=== PATIENT | male | born 1950 | race Caucasian/White ===

== ENCOUNTER 2020-09-15 08:00 | Outpatient (RCR) | payer MEDICARE, SELFPAY ==
--- NOTE | 2020-09-15 13:16 | MHC.PT.DC ---
[facility] [place] Office [place] Office [place] [facility] [address] [phone] F: [phone] F: [phone] F: [phone] F: [phone] Physical Therapy Discharge Report Diagnosis: OA L ANKLE AND FOOT Date of Surgery: Date of Evaluation: 07/30/20 Date of Discharge: 09/15/20 Treatments to Date: 10 Cancellations to Date: 0 No Shows to Date: 0 Discharge Status: Improved Function Discharge Summary: HAS GOOD HEP, HAS MET MOST GOALS , L ANKLE DF~10, PF~60, INV/EV CONTINUES TO BE LIMITED, CONTINUES WITH LAT ANKLE PAIN WITH EVERSION, ED RE LIMITING REPS OF EVERSION, ED RE POSSIBLE RETURN TO ORTHOTICS, TRIAL SELF KT, PODIARTY/ANKLE SPECIALIST CONSULT Electronically signed by: CHRISS DAMNO PT Please sign and return to therapist. Thank you for your referral.
== END 2020-12-10 11:56 | disposition other institution (70) ==
LOC: HO.PT 08:00
PROVIDERS: Visit Provider Student in an Organized Health Care Education/Training Program
DX: M19.072 Primary osteoarthritis, left ankle and foot (principal)
CPT/HCPCS: 97110; 97530

== ENCOUNTER 2020-09-16 08:15 | Outpatient (REF) | payer MEDICARE, SELFPAY ==
[2020-09-16 09:34] LABS: Basophils Absolute Auto 0.1 X10*3/uL (0.0-0.2); Basophils Percent Auto 1.1 % (0-2); Eosinophils Absolute Auto 0.4 X10*3/uL (0.0-0.4); Eosinophils Percent Auto 6.9 % (0-4); Hematocrit 43.5 % (42-52); Imm Gran Abs Auto 0.02 X10*3/uL (0.00-0.03); Imm Gran Pct Auto 0.3 % (0.0-0.4); Lymphocytes Absolute Auto 1.5 X10*3/uL (1.2-4.9); Lymphocytes Percent Auto 23.6 % (20-40); MANUAL DIFF FLAG NO; Mean Corpuscular HGB Conc 34.5 g/dl (31.0-36.0); Mean Corpuscular Hemoglobin 31.3 pg (27.0-33.0); Mean Corpuscular Volume 90.6 fL (80-98); Mean Platelet Volume 10.3 fL (9.4-12.4); Monocytes Absolute Auto 0.4 X10*3/uL (0.1-1.2); Monocytes Percent Auto 6.8 % (2-11); Neutrophils Absolute Auto 3.8 X10*3/uL (2.0-8.3); Neutrophils Percent Auto 61.3 % (45-73); Platelet Count 195 X10*3/uL (160-400); Red Cell Distribution Width 12.1 % (11.0-16.0); Retic HGB Equivalent 34.2 pg (30.0-35.0); Reticulocyte Percent 1.4 % (0.5-1.8); Reticulocytes Absolute 0.068 X10*6/uL (0.026-0.095); White Blood Count 6.2 X10*3/uL (4.8-10.8)
[2020-09-16 10:07] LABS: Estimated Average Glucose 114 mg/dL; Hemoglobin A1c % 5.6 %
[2020-09-16 10:12] LABS: Alanine Aminotransferase 17 U/L (0-40); Albumin Level 4.1 g/dL (3.5-5.0); Alkaline Phosphatase 81 U/L (39-117); Anion Gap 13 (12-20); Aspartate Amino Transferase 18 U/L (5-37); Bilirubin Total 1.3 mg/dL (0.0-1.0); Blood Urea Nitrogen 15 mg/dL (9-16); Calcium 9.1 mg/dL (8.4-10.2); Carbon Dioxide 30 mmol/L (22-29); Chloride 108 mmol/L (96-108); Cholesterol 168 mg/dL; Estimated Glomerular Filt Rate > 60; Glucose Fasting 113 mg/dL (60-99); HDL Cholesterol 45 mg/dL; Iron 70 mcg/dL (45-160); LDL Cholesterol Calculated 109 mg/dl; Percent Iron Saturation 26 % (15-50); Potassium 5.4 mmol/l (3.3-5.1); Sodium 146 mmol/L (135-145); Total Iron Binding Capacity 269 mcg/dL (228-428); Total Protein 6.3 g/dL (6.5-8.0); Triglycerides 71 mg/dL; Unsaturated Iron Binding 199 ug/dL
[2020-09-16 10:21] LABS: Ferritin 102 ng/mL (20-250)
[2020-09-16 10:39] LABS: Folate 13.5 ng/mL (> or = 4.0); Vitamin B12 503 pg/mL (200-900)
== END 2020-09-16 08:16 | disposition home or self-care (01) ==
LOC: HO.LAB 08:15
PROVIDERS: PCP Internal Medicine; Visit Provider Internal Medicine
DX: D64.9 Anemia, unspecified (principal); E66.9 Obesity, unspecified; K21.9 Gastro-esophageal reflux disease without esophagitis; J45.909 Unspecified asthma, uncomplicated; I10 Essential (primary) hypertension; R73.02 Impaired glucose tolerance (oral); Z12.11 Encounter for screening for malignant neoplasm of colon; M25.572 Pain in left ankle and joints of left foot
CPT/HCPCS: 36415; 80053; 80061; 82607; 82728; 82746; 83036; 83540; 85025; 85045

== ENCOUNTER 2020-09-19 08:15 | Day surgery (SDC) | payer MEDICARE, SELFPAY ==
[2020-09-16 19:52] VITALS: BMI 30.1
--- NOTE | 2020-09-17 15:41 | HO.ANESPROP2 ---
Documented by User: Shasha Taylor 09/17/20 15:42 HPI - Anesthesia Eval Consult details Narrative: 70yo M for colonoscopy [facility] Past Medical History Medical History Arthritis Asthma BPH (benign prostatic hyperplasia) Elevated cholesterol Hypertension IBS (irritable bowel syndrome) Renal benign neoplasm Surgical History Surgical History History of colonoscopy History of incisional hernia repair History of prostatectomy S/P left knee arthroscopy Social History Social History Smoking Status: Never smoker Second Hand Smoke Exposure: No Use of substances other than those prescribed or required for medical reasons: No Advance Directives: No Advance Directives Information Provided: No Advance Directives on File: No Recently lost weight without trying: No Meds Allergies Allergy/AdvReac Type Severity Reaction Status Date / Time amoxicillin [AMOXICILLIN] Allergy Unknown HIVES Verified 09/19/20 08:41 pravastatin Allergy Unknown Muscle Pain Verified 09/19/20 08:41 simvastatin Allergy Unknown Muscle Pain Verified 09/19/20 08:41 hay fever Allergy Unknown Sneezing Uncoded 09/16/20 19:42 Home Medications Medication Instructions Recorded Confirmed Type albuterol sulfate [ProAir HFA] 2 puff INHALATION QID PRN 09/16/20 09/16/20 History losartan 100 mg PO DAILY 09/16/20 09/16/20 History Exam Exam Date and Time: September 17, 2020 1541 Height,Weight and Vital Signs: Height 5 ft 8 in Weight 89.811 kg Pertinent Lab Results Pertinent Lab Results: Laboratory Tests 09/16/20 09/16/20 08:28 08:28 WBC 6.2 Hgb 15.0 Hct 43.5 Plt Count 195 Sodium 146 H Potassium 5.4 H Chloride 108 Carbon Dioxide 30 H BUN 15 Creatinine 1.08 Assessment and Plan Assessment Anesthesia Assessment: Chart Reviewed Documented by User: Keyshawn Bermudez 09/19/20 09:02 [facility] Past Medical History Medical History Arthritis Asthma BPH (benign prostatic hyperplasia) Elevated cholesterol Hypertension IBS (irritable bowel syndrome) Renal benign neoplasm Surgical History Surgical History History of colonoscopy History of incisional hernia repair History of prostatectomy S/P left knee arthroscopy Social History Social History Smoking Status: Never smoker Second Hand Smoke Exposure: No Use of substances other than those prescribed or required for medical reasons: No Advance Directives: No Advance Directives Information Provided: No Advance Directives on File: No Recently lost weight without trying: No Meds Allergies Allergy/AdvReac Type Severity Reaction Status Date / Time amoxicillin [AMOXICILLIN] Allergy Unknown HIVES Verified 09/19/20 08:41 pravastatin Allergy Unknown Muscle Pain Verified 09/19/20 08:41 simvastatin Allergy Unknown Muscle Pain Verified 09/19/20 08:41 hay fever Allergy Unknown Sneezing Uncoded 09/16/20 19:42 Home Medications Medication Instructions Recorded Confirmed Type albuterol sulfate [ProAir HFA] 2 puff INHALATION QID PRN 09/16/20 09/16/20 History losartan 100 mg PO DAILY 09/16/20 09/16/20 History Exam Airway Mallampati Class: II TM Dist: >3cm Neck ROM: Full Partial: Upper Loose/Missing/Broken Teeth: No ([id number]) Lungs: cta b/l Assessment and Plan Assessment Anesthesia Assessment: Anesthesia Plan Discussed, PAT Visit and Chart Reviewed Final Anesthetic Review NPO: Yes ASA Class: II Final Preanesthetic Review: No Changes in Pt Med Stat, Meds/Allgs Chart Reviewed, Consent Obtained/Reviewed and Anes Risks/Benef Reviewed Patient Risk: Low Procedure Risk: Low Assessment/Block/Sedation in SS: Assess/Block/Sedation-SS Anesthetic Plan Anesthetic Plan: MAC: Disposition: Standard PACU
[2020-09-19 08:53] VITALS: BP 142/82; PULSE 90; RESP 18; TEMP 35.8; O2SAT 99
[2020-09-19] MEDS: Lactated Ringers 1,000 ML 100 ML IVCONT (09:03)
[2020-09-19 09:59] VITALS: BP 97/57; PULSE 81; RESP 14; TEMP 36.1; O2SAT 94
--- NOTE | 2020-09-19 10:06 | PM.OP ---
Brief Operative Note Date of procedure: 09/19/20 Pre-op diagnosis: Screening Post-op diagnosis: other (Diverticulosis,, Internal hemorrhoids) Procedure: Colonoscopy to the cecum Surgeon: Patricio Rivers Anesthesia: MAC Estimated blood loss (mL): 0 Pathology: none sent Condition: stable Disposition: PACU
[2020-09-19 10:14] VITALS: BP 102/61; PULSE 94; RESP 18; O2SAT 97
[2020-09-19 10:29] VITALS: BP 112/69; PULSE 91; RESP 20; O2SAT 98
--- NOTE | 2020-09-19 10:48 | HO.POSTANES ---
Post Anesthesia Evaluation Post Anesthesia Evaluation Vital Signs: Vital Signs Temp Pulse Resp BP Pulse Ox 09/19/20 10:29 97.0 F 91 20 112/69 98 09/19/20 10:14 94 18 102/61 97 09/19/20 09:59 97.0 F 81 14 97/57 L 94 09/19/20 08:53 96.5 F L 90 18 142/82 H 99 Anesthesia: Monitored Mental Status: Awake Pain Control: Satisfactory Nausea/Vomiting: None Hydration: Adequate Anesthesia-Related Issues: No Anes. Related Issues
--- NOTE | 2020-09-19 12:15 | OP_ITS ---
SURGEON: Patricio Rivers MD INDICATIONS: The patient presents for evaluation of colorectal cancer screening. Full consent has been obtained from him for this, including risks of bleeding and perforation. PREOPERATIVE DIAGNOSIS: Colorectal cancer screening. POSTOPERATIVE DIAGNOSIS: PROCEDURE PERFORMED: Colonoscopy to cecum. ESTIMATED BLOOD LOSS: COMPLICATIONS: ANESTHESIA: Monitored anesthesia care. ASSISTANTS: SPECIMENS: POSTOPERATIVE DIAGNOSES: Colorectal cancer screening, diverticulosis and internal hemorrhoids. DESCRIPTION OF PROCEDURE: The patient was placed in the left lateral decubitus position. The digital rectal exam revealed no abnormalities. The Olympus video pediatric colonoscope was entered into the rectum and advanced easily to the cecum. Once in the cecum, I did identify normal-appearing cecal pouch with appendiceal orifice and a normal-appearing ileocecal valve. The entire cecum and ileocecal valve appeared normal. There was transillumination of light deep in the right lower quadrant. The scope was slowly withdrawn assessing all mucosal surfaces carefully. Preparation was excellent. I did not visualize any sign of polyps, colitis, nor angiodysplasia. There was a mild amount of sigmoid diverticulosis. In the rectum, scope was retroflexed visualizing internal hemorrhoids, but no other pathology. The rectal mucosa appeared normal. The scope was straightened out and withdrawn from the patient. He tolerated the procedure well and was returned to the recovery area in stable condition. IMPRESSION: 1. Diverticulosis. 2. Internal hemorrhoids. PLAN: Given today's negative colonoscopy, as well as 2 previously negative screening colonoscopies, and no family history of colon cancer, and his age of 70, I do not think he will need any further screening colonoscopies. He will otherwise see me on a p.r.n. basis. He was advised to resume aspirin today. MD MARIA ESTHER Rico/ALECIA / [phone]
== END 2020-09-19 11:15 | disposition home or self-care (01) ==
PROVIDERS: PCP Internal Medicine; Visit Provider Internal Medicine
PROC: 0DJD8ZZ Inspection of Lower Intestinal Tract, Via Natural or Artificial Opening Endoscopic (ICD-10-PCS; CPT 45378; principal; 2020-09-19 09:30)
DX: Z12.11 Encounter for screening for malignant neoplasm of colon (principal); K57.30 Diverticulosis of large intestine without perforation or abscess without bleeding; K64.8 Other hemorrhoids; K58.0 Irritable bowel syndrome with diarrhea; K21.9 Gastro-esophageal reflux disease without esophagitis; I10 Essential (primary) hypertension; J45.909 Unspecified asthma, uncomplicated; Z79.82 Long term (current) use of aspirin; Z85.46 Personal history of malignant neoplasm of prostate; Z79.899 Other long term (current) drug therapy; Z88.1 Allergy status to other antibiotic agents; Z88.8 Allergy status to other drugs, medicaments and biological substances
CPT/HCPCS: G0121

== ENCOUNTER 2020-09-30 07:50 | Outpatient (REF) | payer MEDICARE, SELFPAY ==
[2020-09-30 09:13] LABS: Anion Gap 12 (12-20); Blood Urea Nitrogen 12 mg/dL (9-16); Calcium 9.3 mg/dL (8.4-10.2); Carbon Dioxide 28 mmol/L (22-29); Chloride 104 mmol/L (96-108); Estimated Glomerular Filt Rate > 60; Glucose Random 108 mg/dL (60-115); Potassium 4.6 mmol/l (3.3-5.1); Sodium 139 mmol/L (135-145)
== END 2020-09-30 07:51 | disposition home or self-care (01) ==
LOC: HO.LAB 07:50
PROVIDERS: Visit Provider Internal Medicine
DX: E87.5 Hyperkalemia (principal)
CPT/HCPCS: 80048

== ENCOUNTER → 2021-02-26 14:08 | Outpatient (BNVA) | payer MEDICARE, SELFPAY | PROVIDERS: Visit Provider Student in an Organized Health Care Education/Training Program | DX: M19.072 Primary osteoarthritis, left ankle and foot (principal) | CPT/HCPCS: 99212 ==

== ENCOUNTER 2021-08-20 08:22 | Outpatient (REF) | payer MEDICARE, SELFPAY ==
[2021-08-20 08:53] LABS: MANUAL DIFF FLAG NO
[2021-08-20 09:17] LABS: Basophils Absolute Auto 0.1 X10*3/uL (0.0-0.2); Basophils Percent Auto 1.3 % (0-2); Eosinophils Absolute Auto 0.2 X10*3/uL (0.0-0.4); Eosinophils Percent Auto 3.7 % (0-4); Hematocrit 40.9 % (42-52); Hemoglobin 13.9 g/dl (14.0-18.0); Imm Gran Abs Auto 0.02 X10*3/uL (0.00-0.03); Imm Gran Pct Auto 0.4 % (0.0-0.4); Lymphocytes Percent Auto 18.2 % (20-40); Mean Corpuscular Volume 91.3 fL (80-98); Mean Platelet Volume 9.9 fL (9.4-12.4); Monocytes Absolute Auto 0.5 X10*3/uL (0.1-1.2); Monocytes Percent Auto 9.1 % (2-11); Neutrophils Absolute Auto 3.6 X10*3/uL (2.0-8.3); Neutrophils Percent Auto 67.3 % (45-73); Platelet Count 170 X10*3/uL (160-400); Red Blood Count 4.48 X10*6/uL (4.60-5.80); Red Cell Distribution Width 12.6 % (11.0-16.0); White Blood Count 5.4 X10*3/uL (4.8-10.8)
[2021-08-20 10:02] LABS: Free T4 (Free Thyroxine) 0.88 ng/dL (0.71-1.85); Thyroid Stimulating Hormone 2.33 uIU/mL (0.32-4.0)
[2021-08-20 10:04] LABS: Alanine Aminotransferase 19 U/L (0-40); Albumin Level 3.9 g/dL (3.5-5.0); Alkaline Phosphatase 79 U/L (39-117); Anion Gap 9 (12-20); Aspartate Amino Transferase 17 U/L (5-37); Bilirubin Total 1.2 mg/dL (0.0-1.0); Blood Urea Nitrogen 19 mg/dL (9-16); Calcium 9.6 mg/dL (8.4-10.2); Carbon Dioxide 29 mmol/L (22-29); Chloride 107 mmol/L (96-108); Cholesterol 180 mg/dL; Estimated Glomerular Filt Rate > 60; Glucose Random 119 mg/dL (60-115); HDL Cholesterol 48 mg/dL; LDL Cholesterol Calculated 120 mg/dl; Potassium 4.8 mmol/L (3.3-5.1); Sodium 140 mmol/L (135-145); Triglycerides 64 mg/dL
[2021-08-20 10:35] LABS: Folate 16.3 ng/mL (> or = 4.0); Vitamin B12 413 pg/mL (200-900)
== END 2021-08-20 08:23 | disposition home or self-care (01) ==
LOC: HO.LAB 08:22
PROVIDERS: PCP Internal Medicine; Visit Provider Internal Medicine
DX: I10 Essential (primary) hypertension (principal); E78.00 Pure hypercholesterolemia, unspecified
CPT/HCPCS: 36415; 80053; 80061; 82607; 82746; 84439; 84443; 85025

== ENCOUNTER 2022-08-17 07:02 | Outpatient (REF) | payer MEDICARE, SELFPAY ==
[2022-08-17 07:23] LABS: MANUAL DIFF FLAG NO
[2022-08-17 07:37] LABS: Basophils Absolute Auto 0.1 X10*3/uL (0.0-0.2); Basophils Percent Auto 1.2 % (0-2); Eosinophils Absolute Auto 0.5 X10*3/uL (0.0-0.4); Eosinophils Percent Auto 8.9 % (0-4); Hematocrit 42.5 % (42.0-52.0); Hemoglobin 14.6 g/dl (14.0-18.0); Imm Gran Abs Auto 0.01 X10*3/uL (0.00-0.03); Imm Gran Pct Auto 0.2 % (0.0-0.4); Lymphocytes Absolute Auto 1.6 X10*3/uL (1.2-4.9); Lymphocytes Percent Auto 27.7 % (20-40); Mean Corpuscular HGB Conc 34.4 g/dl (31.0-36.0); Mean Corpuscular Hemoglobin 30.7 pg (27.0-33.0); Mean Corpuscular Volume 89.3 fL (80.0-98.0); Mean Platelet Volume 9.6 fL (9.4-12.4); Monocytes Absolute Auto 0.4 X10*3/uL (0.1-1.2); Monocytes Percent Auto 7.7 % (2-11); Neutrophils Absolute Auto 3.1 x10*3/uL (2.0-8.3); Neutrophils Percent Auto 54.3 % (45-73); Platelet Count 181 X10*3/uL (160-400); Red Blood Count 4.76 X10*6/uL (4.60-5.80); White Blood Count 5.7 X10*3/uL (4.8-10.8)
[2022-08-17 08:27] LABS: Alanine Aminotransferase 15 U/L (0-40); Alkaline Phosphatase 76 U/L (39-117); Anion Gap 14 (12-20); Aspartate Amino Transferase 16 U/L (5-37); Bilirubin Total 1.7 mg/dL (0.0-1.0); Blood Urea Nitrogen 18 mg/dL (9-16); Calcium 9.5 mg/dL (8.4-10.2); Carbon Dioxide 23 mmol/L (22-29); Chloride 107 mmol/L (96-108); Cholesterol 178 mg/dL; Estimated Glomerular Filt Rate > 60; Glucose Random 117 mg/dL (60-115); HDL Cholesterol 41 mg/dL; LDL Cholesterol Calculated 121 mg/dl; Potassium 4.2 mmol/L (3.3-5.1); Sodium 140 mmol/L (135-145); Total Protein 6.1 g/dL (6.5-8.0); Triglycerides 82 mg/dL
[2022-08-17 08:35] LABS: Free T4 (Free Thyroxine) 0.96 ng/dL (0.71-1.85); Prostate Specific Antigen < 0.05 ng/mL (<0.05-4.0); Thyroid Stimulating Hormone 3.05 uIU/mL (0.32-4.0)
[2022-08-17 08:50] LABS: Folate 18.3 ng/mL (> or = 4.0); Vitamin B12 358 pg/mL (200-900)
== END 2022-08-17 07:03 | disposition home or self-care (01) ==
LOC: HO.LAB 07:02
PROVIDERS: PCP Internal Medicine; Visit Provider Internal Medicine
DX: Z12.5 Encounter for screening for malignant neoplasm of prostate (principal); E78.00 Pure hypercholesterolemia, unspecified; I10 Essential (primary) hypertension; Z85.46 Personal history of malignant neoplasm of prostate
CPT/HCPCS: 36415; 80053; 80061; 82607; 82746; 84153; 84439; 84443; 85025

== ENCOUNTER 2023-05-19 07:34 | Outpatient (REF) | payer MEDICARE, SELFPAY | END 2023-05-19 07:35 | disposition home or self-care (01) | LOC: HO.LAB 07:34 | PROVIDERS: PCP Internal Medicine; Visit Provider Internal Medicine | DX: E78.00 Pure hypercholesterolemia, unspecified (principal); R73.02 Impaired glucose tolerance (oral); Z85.46 Personal history of malignant neoplasm of prostate; Z12.5 Encounter for screening for malignant neoplasm of prostate | CPT/HCPCS: 36415; 80053; 80061; 82607; 82746; 84153; 84439; 84443; 85025 ==

== ENCOUNTER 2023-06-06 10:20 | Outpatient (AMB) | payer MEDICARE, SELFPAY ==
--- NOTE | 2023-06-06 10:38 | A.OFFPC_ITS ---
Vital Signs 06/06/23 10:39 Height 5 ft 8 in Weight 194 lb BMI 29.5 BP 124/70 Blood Pressure Location Lt brachial Position Sitting Pulse 73 Pulse Source Pulse Oximeter Pulse Oximetry (%) 98 Oxygen Delivery Method Room Air Intake Visit Reasons: 3 month f/u Allergies amoxicillin [AMOXICILLIN] Allergy (Unknown, Verified 06/06/23 10:39) HIVES pravastatin Allergy (Unknown, Verified 06/06/23 10:39) Muscle Pain simvastatin Allergy (Unknown, Verified 06/06/23 10:39) Muscle Pain hay fever Allergy (Unknown, Uncoded 06/06/23 10:39) Sneezing Medication List - Last Reconciled 06/06/23 by Jose Wilson MD albuterol sulfate 90 mcg/actuation 2 puffs inhalation Q6H PRN aspirin (Adult Low Dose Aspirin) 81 mg PO DAILY fluticasone propion-salmeterol 250-50 mcg/dose (Advair Diskus) 1 inh inhalation BID multivitamin 1 tab PO DAILY naproxen sodium (Aleve) 220 mg PO BID PRN [REPLENEX 1 cap PO 2XD] rosuvastatin 5 mg PO Q OTHER DAY valsartan (Diovan) 160 mg PO DAILY 90 days Tobacco use date assessed: 02/28/23 Fall risk assessment: No Falls in past year Last assessed Fall Risk: 06/06/23 Dental Screening Dental Screen Date: 06/06/23 Did you have a dental visit in the last 12 months?: Yes Did you have a dental problem in the last 6 months where you did not have access to dental care?: No Was dental information given to patient?: Patient has dentist HPI 3 month f/u HPI Details 73-year-old overweight male with impaired glucose tolerance hypertension GERD elevated cholesterol history of prostate cancer asthma coming in for follow-up. Patient was last seen in February 2023 blood work was requested [facility] Medical History (Updated 06/06/23 @ 11:03 by Jose Wilson MD) Arthritis Asthma BPH (benign prostatic hyperplasia) Carpal tunnel syndrome Elevated cholesterol GERD (gastroesophageal reflux disease) History of prostate cancer Hypertension IBS (irritable bowel syndrome) Nasal polyp Obesity (BMI 30-39.9) Surgical History (Updated 02/28/23 @ 08:58 by Jose Wilson MD) History of colonoscopy History of incisional hernia repair History of prostatectomy Hx of arthroscopic knee surgery Hx of shoulder surgery Renal benign neoplasm S/P left knee arthroscopy Family History (Updated 02/28/23 @ 08:54 by Kaylyn West CMA) Father CAD (coronary artery disease) CVD (cardiovascular disease) Heart disease Mother Hypertension Brother CVD (cardiovascular disease) Myocardial infarction Social History (Updated 02/28/23 @ 09:09 by Jose Wilson MD) Housing: House Alcohol intake: current Alcohol intake frequency: holidays/special occasions only Patient Tobacco Use Status: Never used Tobacco e-Cigarette/Vaping Use: Never Used Second Hand Smoke Exposure: No service: Yes Current occupational status: retired Cognitive needs: No Hearing needs: Yes Vision needs: Yes Questionnaire PHQ-9 Over the last 2 weeks, how often have you been bothered by any of the following problems? 1. Little interest or pleasure in doing things: not at all 2. Feeling down, depressed, or hopeless: not at all 3. Trouble falling or staying asleep, or sleeping too much: not at all 4. Feeling tired or having little energy: not at all 5. Poor appetite or overeating: not at all 6. Feeling bad about yourself - or that you are a failure or have let yourself or your family down: not at all 7. Trouble concentrating on things, such as reading the newspaper or watching television: not at all 8. Moving or speaking so slowly that other people could have noticed. Or the opposite - being so fidgety or restless that you have been moving around a lot more than usual: not at all 9. Thoughts that you would be better off or of hurting yourself in some way: not at all Total score: 0 Depression Screening Interpretation: Negative Source: Developed by Drs. Patricio Andrews, Dana Young, Jaquan Brooks and colleagues, with an educational doris from [employer]. Thrive Questionnaire Date Thrive assessed: 02/28/23 AUDIT C Alcohol Use Questionnaire (AUDIT-C) 1. How often do you have a drink containing alcohol?: Monthly or less 2. How many drinks containing alcohol do you have on a typical day when you are drinking?: 1 or 2 3. How often do you have six or more drinks on one occasion?: Never Total Score: 1 ALEXIA-7 AMB Questionnaire ALEXIA-7 Date ALEXIA - 7 assessed: 02/28/23 Source: Developed by Drs. Patricio Andrews, Dana Young, Jaquan Brooks and colleagues, with an educational doris from [employer]. Physical exam (Primary Care) Vital Signs: Last Vital Signs Pulse 73 06/06/23 10:39 BP 124/70 06/06/23 10:39 Pulse Ox 98 06/06/23 10:39 Oxygen Delivery Method Room Air 06/06/23 10:39 BMI result Body Mass Index 29.5 Tobacco/Smoking Status: Tobacco use Status Tobacco use date assessed 02/28/23 06/06/23 10:40 Patient Tobacco Use Status Never used Tobacco 06/06/23 10:40 e-Cigarette/Vaping Use Never Used 06/06/23 10:40 PHQ-9: PHQ-9 Score PHQ-9: Total score 0 06/06/23 10:40 Depression Screening Interpretation: Negative Thrive Assessment: Date of Thrive Assessment Date Thrive assessed 02/28/23 06/06/23 10:40 Const General: alert; No acute distress Eyes Conjunctivae: conjunctivae normal Resp Auscultation: clear to auscultation bilaterally Cardio Rate: regular rate Rhythm: regular rhythm GI Inspection: Yes normal to inspection Extrem General: Yes normal to inspection and No edema Assessment and Plan Assessment & Plan (1) Asthma: Code(s): J45.909 - Unspecified asthma, uncomplicated Plan: Continue with a inhaler as needed (2) Overweight (BMI 25.0-29.9): Code(s): E66.3 - Overweight Plan: Diet and exercise (3) History of prostate cancer: Comment: Dr. Gallardo 2016 robotic prostatectomy Code(s): Z85.46 - Personal history of malignant neoplasm of prostate Plan: PSA done less than 0.1 and patient follows up with urology (4) Impaired glucose tolerance: Code(s): R73.02 - Impaired glucose tolerance (oral) Plan: Decrease the amount of carbohydrate intake, pasta, bread, rice and potatoes are all sugar and that is aside from all the sweet stuff, remember that fruits are good but they are Sweet also. (5) Hypertension: Code(s): I10 - Essential (primary) hypertension Qualifiers: Hypertension type: essential hypertension Qualified Code(s): I10 - Essential (primary) hypertension Plan: Continue with blood pressure medication. Decrease salt intake and exercise patient takes valsartan 160 mg once a day (6) GERD (gastroesophageal reflux disease): Code(s): K21.9 - Gastro-esophageal reflux disease without esophagitis Qualifiers: Esophagitis presence: without esophagitis Qualified Code(s): K21.9 - Gastro-esophageal reflux disease without esophagitis Plan: Avoid the foods that causes that usually spicy foods, tomato products, juices, coffee, soda and foods that your sensitive to. After eating do not lie down, allow 3-4 hours before in lie down. And keep the head of bed above 30 degrees to avoid the acid from going up. (7) Elevated cholesterol: Code(s): E78.00 - Pure hypercholesterolemia, unspecified Plan: Avoid fried foods, chicken skin, eggs, butter margarine, pastries and meat. Be it pork or beef they have a lot of cholesterol patient takes rosuvastatin 5 mg once a day Coding Level of Care Code Est Pt Level 4 (09623) Diagnoses Asthma J45.909 Overweight (BMI 25.0-29.9) E66.3 History of prostate cancer Z85.46 Impaired glucose tolerance R73.02 Hypertension I10 Hypertension type: essential hypertension GERD (gastroesophageal reflux disease) K21.9 Esophagitis presence: without esophagitis Elevated cholesterol E78.00
[2023-06-06 10:39] VITALS: BP 124/70; PULSE 73; O2SAT 98; BMI 29.5
== END 2023-06-06 11:11 | disposition home or self-care (01) ==
PROVIDERS: PCP Internal Medicine; Visit Provider Internal Medicine
DX: J45.909 Unspecified asthma, uncomplicated (principal); Z85.46 Personal history of malignant neoplasm of prostate; K21.9 Gastro-esophageal reflux disease without esophagitis; I10 Essential (primary) hypertension; R73.02 Impaired glucose tolerance (oral); E66.3 Overweight; E78.00 Pure hypercholesterolemia, unspecified
CPT/HCPCS: 99214

== ENCOUNTER 2023-12-07 09:15 | Outpatient (AMB) | payer MEDICARE, SELFPAY ==
[2023-12-07 09:21] VITALS: BP 150/82; PULSE 80; O2SAT 97; BMI 29.6
--- NOTE | 2023-12-07 09:21 | A.OFFPC_ITS ---
Vital Signs 12/07/23 09:21 Height 5 ft 8 in Weight 195 lb BMI 29.6 BP 150/82 H Blood Pressure Location Lt brachial Position Sitting Pulse 80 Pulse Source Pulse Oximeter Pulse Oximetry (%) 97 Oxygen Delivery Method Room Air Intake Visit Reasons: 6mth f/u Allergies amoxicillin [AMOXICILLIN] Allergy (Unknown, Verified 12/07/23 09:22) HIVES pravastatin Allergy (Unknown, Verified 12/07/23 09:22) Muscle Pain simvastatin Allergy (Unknown, Verified 12/07/23 09:22) Muscle Pain hay fever Allergy (Unknown, Uncoded 12/07/23 09:22) Sneezing Medication List - Last Reconciled 12/07/23 by Jose Wilson MD albuterol sulfate 90 mcg/actuation 2 puffs inhalation Q6H PRN aspirin (Adult Low Dose Aspirin) 81 mg PO DAILY fluticasone propion-salmeterol 250-50 mcg/dose (Advair Diskus) 1 inh inhalation BID multivitamin 1 tab PO DAILY naproxen sodium (Aleve) 220 mg PO BID PRN [REPLENEX 1 cap PO 2XD] rosuvastatin 5 mg PO Q OTHER DAY valsartan (Diovan) 160 mg PO DAILY 90 days Tobacco use date assessed: 12/07/23 Fall risk assessment: No Falls in past year Last assessed Fall Risk: 12/07/23 Dental Screening Dental Screen Date: 12/07/23 Did you have a dental visit in the last 12 months?: Yes Did you have a dental problem in the last 6 months where you did not have access to dental care?: No Was dental information given to patient?: Patient has dentist HPI 6m f/u HPI Details 73-year-old overweight male with asthma history of prostate cancer impaired glucose tolerance hypertension GERD hypercholesterolemia last seen in May 2023. Review of the notes had the flu shot and the COVID shot in August. will be seeing urology next week and having renal US and blood work [facility] Medical History (Updated 06/06/23 @ 11:03 by Jose Wilson MD) Nasal polyp Obesity (BMI 30-39.9) Carpal tunnel syndrome History of prostate cancer GERD (gastroesophageal reflux disease) Arthritis IBS (irritable bowel syndrome) BPH (benign prostatic hyperplasia) Asthma Elevated cholesterol Hypertension Surgical History (Updated 02/28/23 @ 08:58 by Jose Wilson MD) Hx of shoulder surgery Hx of arthroscopic knee surgery History of prostatectomy S/P left knee arthroscopy History of colonoscopy History of incisional hernia repair Renal benign neoplasm Family History (Updated 02/28/23 @ 08:54 by Kaylyn West [facility]) Father CAD (coronary artery disease) CVD (cardiovascular disease) Heart disease Mother Hypertension Brother CVD (cardiovascular disease) Myocardial infarction Social History (Updated 02/28/23 @ 09:09 by Jose Wilson MD) Housing: House Alcohol intake: current Alcohol intake frequency: holidays/special occasions only Patient Tobacco Use Status: Never used Tobacco e-Cigarette/Vaping Use: Never Used Second Hand Smoke Exposure: No service: Yes Current occupational status: retired Cognitive needs: No Hearing needs: Yes Vision needs: Yes Questionnaire PHQ-9 Over the last 2 weeks, how often have you been bothered by any of the following problems? 1. Little interest or pleasure in doing things: not at all 2. Feeling down, depressed, or hopeless: not at all 3. Trouble falling or staying asleep, or sleeping too much: not at all 4. Feeling tired or having little energy: not at all 5. Poor appetite or overeating: not at all 6. Feeling bad about yourself - or that you are a failure or have let yourself or your family down: not at all 7. Trouble concentrating on things, such as reading the newspaper or watching television: not at all 8. Moving or speaking so slowly that other people could have noticed. Or the opposite - being so fidgety or restless that you have been moving around a lot more than usual: not at all 9. Thoughts that you would be better off or of hurting yourself in some way: not at all Total score: 0 Depression Screening Interpretation: Negative Depression Screening Done: Yes Source: Developed by Drs. Patricio Andrews, Dana Young, Jaquan Brooks and colleagues, with an educational doris from [employer]. Thrive Questionnaire Date Thrive assessed: 12/07/23 I am a: Patient What is your living situation today?: I have a steady place to live Within the past 12 months, did the food you bought not last and you didn't have the money to get more?: Never true Within the past 12 months, did you worry whether your food would run out before you got money to buy more?: Never true Do you have trouble paying for medicines?: No Do you have trouble getting transportation to medical appointments?: No Do you have trouble paying your heating and electricity bill?: No Do you have trouble taking care of your child, family member or friend?: No Do you have trouble with day-to-day activities such as bathing, preparing meals, shopping, managing finances, etc.?: No Are you currently unemployed and looking for a job?: No Are you interested in more education?: No Currently or been in a relationship where the following occur: no concerns reported THRIVE Score: 0 AUDIT C Alcohol Use Questionnaire (AUDIT-C) 1. How often do you have a drink containing alcohol?: Monthly or less 2. How many drinks containing alcohol do you have on a typical day when you are drinking?: 1 or 2 3. How often do you have six or more drinks on one occasion?: Never Total Score: 1 ALEXIA-7 AMB Questionnaire ALEXIA-7 Date ALEXIA - 7 assessed: 12/07/23 Feeling nervous, anxious, or on edge: 0 = Not at all Not being able to stop or control worryin = Not at all Worrying too much about different things: 0 = Not at all Trouble relaxin = Not at all Being so restless that it is hard to sit still: 0 = Not at all Becoming easily annoyed or irritable: 0 = Not at all Feeling afraid as if something awful might happen: 0 = Not at all Total ALEXIA-7 score (0-4 normal; 5-9 mild; 10-14 moderate; 15-21 severe): 0 Source: Developed by Drs. Patricio Andrews, Dana Young, Jaquan Brooks and colleagues, with an educational doris from [employer]. Physical exam (Primary Care) Vital Signs: Last Vital Signs Pulse 80 12/07/23 09:21 BP 150/82 H 12/07/23 09:21 Pulse Ox 97 12/07/23 09:21 Oxygen Delivery Method Room Air 12/07/23 09:21 BMI result Body Mass Index 29.6 Tobacco/Smoking Status: Tobacco use Status Tobacco use date assessed 12/07/23 12/07/23 09:27 Patient Tobacco Use Status Never used Tobacco 12/07/23 09:27 e-Cigarette/Vaping Use Never Used 12/07/23 09:27 PHQ-9: PHQ-9 Score PHQ-9: Total score 0 12/07/23 09:27 Depression Screening Interpretation: Negative Thrive Assessment: Date of Thrive Assessment Date Thrive assessed 12/07/23 12/07/23 09:27 Currently or been in a relationship where the following occur: no concerns reported Const General: alert; No acute distress Eyes Conjunctivae: conjunctivae normal Resp Auscultation: clear to auscultation bilaterally Cardio Rate: regular rate Rhythm: regular rhythm GI Inspection: Yes normal to inspection Extrem General: Yes normal to inspection and No edema Assessment and Plan Assessment & Plan (1) GERD (gastroesophageal reflux disease): Code(s): K21.9 - Gastro-esophageal reflux disease without esophagitis Qualifiers: Esophagitis presence: without esophagitis Qualified Code(s): K21.9 - Gastro-esophageal reflux disease without esophagitis Plan: Avoid the foods that causes that usually spicy foods, tomato products, juices, coffee, soda and foods that your sensitive to. After eating do not lie down, allow 3-4 hours before in lie down. And keep the head of bed above 30 degrees to avoid the acid from going up. (2) Elevated cholesterol: Code(s): E78.00 - Pure hypercholesterolemia, unspecified Plan: Avoid fried foods, chicken skin, eggs, butter margarine, pastries and meat. Be it pork or beef they have a lot of cholesterol LDL goal of less than 130 and triglyceride of less than 150. Patient on rosuvastatin 5 mg every other day (3) Hypertension: Code(s): I10 - Essential (primary) hypertension Qualifiers: Hypertension type: essential hypertension Qualified Code(s): I10 - Essential (primary) hypertension Plan: Continue with blood pressure medication. Decrease salt intake and exercise on Diovan 160 mg once a day. BP high today , advised to monitor for now (4) Impaired glucose tolerance: Code(s): R73.02 - Impaired glucose tolerance (oral) Plan: Decrease the amount of carbohydrate intake, pasta, bread, rice and potatoes are all sugar and that is aside from all the sweet stuff, remember that fruits are good but they are Sweet also. (5) History of prostate cancer: Comment: Dr. Gallardo 2016 robotic prostatectomy Code(s): Z85.46 - Personal history of malignant neoplasm of prostate Plan: Continuing to monitor PSA. May 2023 last tested (6) Overweight (BMI 25.0-29.9): Code(s): E66.3 - Overweight Plan: Diet and exercise (7) Asthma: Code(s): J45.909 - Unspecified asthma, uncomplicated Plan: Continue with present inhalers has a controller Advair Orders: Orders Hemoglobin A1c 6 Months R73.02 - Impaired glucose tolerance (oral) Comprehensive Met. Panel 6 Months R73.02 - Impaired glucose tolerance (oral) Complete Blood Count Auto Diff 6 Months E78.00 - Pure hypercholesterolemia, unspecified Free T4 (Free Thyroxine) 6 Months E78.00 - Pure hypercholesterolemia, unspecified Thyroid Stimulating Hormone 6 Months E78.00 - Pure hypercholesterolemia, unsp ecified Vitamin B12 and Folate 6 Months E78.00 - Pure hypercholesterolemia, unspecified Prostate Specific Antigen Scr 6 Months Z85.46 - Personal history of malignant neoplasm of prostate Lipid Panel 6 Months E78.00 - Pure hypercholesterolemia, unspecified Coding Level of Care Code Est Pt Level 4 (99958) Diagnoses Gastroesophageal reflux disease without esophagitis K21.9 Esophagitis presence: without esophagitis Elevated cholesterol E78.00 Essential hypertension I10 Hypertension type: essential hypertension Impaired glucose tolerance R73.02 History of prostate cancer Z85.46 Overweight (BMI 25.0-29.9) E66.3 Asthma J45.909
== END 2023-12-07 10:38 | disposition home or self-care (01) ==
PROVIDERS: PCP Internal Medicine; Visit Provider Internal Medicine
DX: K21.9 Gastro-esophageal reflux disease without esophagitis (principal); E78.00 Pure hypercholesterolemia, unspecified; I10 Essential (primary) hypertension; R73.02 Impaired glucose tolerance (oral); Z85.46 Personal history of malignant neoplasm of prostate; E66.3 Overweight; J45.909 Unspecified asthma, uncomplicated
CPT/HCPCS: 99214

== ENCOUNTER 2024-05-24 06:01 | Outpatient (REF) | payer MEDICARE, SELFPAY ==
[2024-05-24 06:17] LABS: MANUAL DIFF FLAG NO
[2024-05-24 08:09] LABS: Basophils Absolute Auto 0.1 X10*3/uL (0.0-0.2); Basophils Percent Auto 1.1 % (0-2); Eosinophils Absolute Auto 0.5 X10*3/uL (0.0-0.4); Eosinophils Percent Auto 6.8 % (0-4); Hematocrit 42.8 % (42.0-52.0); Hemoglobin 14.4 g/dl (14.0-18.0); Imm Gran Abs Auto 0.02 X10*3/uL (0.00-0.03); Imm Gran Pct Auto 0.3 % (0.0-0.4); Lymphocytes Absolute Auto 1.8 X10*3/uL (1.2-4.9); Lymphocytes Percent Auto 27.9 % (20-40); Mean Corpuscular HGB Conc 33.6 g/dl (31.0-36.0); Mean Corpuscular Hemoglobin 30.6 pg (27.0-33.0); Mean Corpuscular Volume 91.1 fL (80.0-98.0); Mean Platelet Volume 10.1 fL (9.4-12.4); Monocytes Absolute Auto 0.5 X10*3/uL (0.1-1.2); Monocytes Percent Auto 7.3 % (2-11); Neutrophils Absolute Auto 3.7 x10*3/uL (2.0-8.3); Neutrophils Percent Auto 56.6 % (45-73); Platelet Count 205 X10*3/uL (160-400); Red Cell Distribution Width 12.3 % (11.0-16.0); White Blood Count 6.6 X10*3/uL (4.8-10.8)
[2024-05-24 08:18] LABS: Estimated Average Glucose 114 mg/dL; Hemoglobin A1C 148.6215 umol/L; Hemoglobin A1c % 5.6 % (<6.0)
[2024-05-24 08:43] LABS: Alanine Aminotransferase 18 U/L (0-40); Albumin Level 3.9 g/dL (3.5-5.0); Alkaline Phosphatase 84 U/L (39-117); Anion Gap 13 (12-20); Aspartate Amino Transferase 21 U/L (5-37); Bilirubin Total 1.2 mg/dL (0.0-1.0); Blood Urea Nitrogen 19 mg/dL (9-16); Calcium 9.6 mg/dL (8.4-10.2); Carbon Dioxide 23 mmol/L (22-29); Chloride 108 mmol/L (96-108); Cholesterol 171 mg/dL (<200); Estimated Glomerular Filt Rate > 60; Glucose Random 108 mg/dL (60-115); HDL Cholesterol 42 mg/dL (>40); LDL Cholesterol Calculated 108 mg/dL (<100); Potassium 4.5 mmol/L (3.3-5.1); Sodium 139 mmol/L (135-145); Total Protein 6.6 g/dL (6.5-8.0); Triglycerides 105 mg/dL (<150)
[2024-05-24 09:03] LABS: Free T4 (Free Thyroxine) 0.85 ng/dL (0.71-1.85); Thyroid Stimulating Hormone 2.97 uIU/mL (0.32-4.0)
[2024-05-24 09:14] LABS: Folate 11.3 ng/mL (> or = 4.0); Vitamin B12 498 pg/mL (200-900)
[2024-05-24 11:04] LABS: Prostate Specific Antigen Scr < 0.10 ng/mL (<0.05-4.0)
== END 2024-05-24 06:02 | disposition home or self-care (01) ==
LOC: HO.LAB 06:01
PROVIDERS: PCP Internal Medicine; Visit Provider Internal Medicine
DX: R73.02 Impaired glucose tolerance (oral) (principal); E78.00 Pure hypercholesterolemia, unspecified; Z85.46 Personal history of malignant neoplasm of prostate; Z12.5 Encounter for screening for malignant neoplasm of prostate
CPT/HCPCS: 36415; 80053; 80061; 82607; 82746; 83036; 84153; 84439; 84443; 85025

== ENCOUNTER 2024-06-04 12:06 | Outpatient (AMB) | payer MEDICARE, SELFPAY ==
[2024-06-04 11:28] VITALS: BP 130/72; PULSE 79; O2SAT 96; BMI 29.2
--- NOTE | 2024-06-04 11:28 | A.OFFPC_ITS ---
Vital Signs 06/04/24 11:28 Height 5 ft 8 in Weight 192 lb 0.6 oz BMI 29.2 BP 130/72 Blood Pressure Location Lt brachial Position Sitting Pulse 79 Pulse Source Pulse Oximeter Pulse Oximetry (%) 96 Oxygen Delivery Method Room Air Intake Visit Reasons: Annual exam Intake Note: Patient is here today for a physical. 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: No Allergies amoxicillin [AMOXICILLIN] Allergy (Unknown, Verified 06/04/24 11:28) HIVES pravastatin Allergy (Unknown, Verified 06/04/24 11:28) Muscle Pain simvastatin Allergy (Unknown, Verified 06/04/24 11:28) Muscle Pain hay fever Allergy (Unknown, Uncoded 06/04/24 11:28) Sneezing Medication List - Last Reconciled 06/04/24 by Jose Wilson MD albuterol sulfate 90 mcg/actuation 2 puffs inhalation Q6H PRN aspirin (Adult Low Dose Aspirin) 81 mg PO DAILY famotidine (Pepcid) 20 mg PO BEDTIME PRN fluticasone propion-salmeterol 250-50 mcg/dose (Advair Diskus) 1 inh inhalation BID multivitamin 1 tab PO DAILY naproxen sodium (Aleve) 220 mg PO BID PRN [REPLENEX 1 cap PO 2XD] rosuvastatin 5 mg PO Q OTHER DAY valsartan (Diovan) 160 mg PO DAILY 90 days Tobacco use date assessed: 12/07/23 Fall risk assessment: No Falls in past year Last assessed Fall Risk: 06/04/24 Dental Screening Dental Screen Date: 12/07/23 Did you have a dental visit in the last 12 months?: Yes Did you have a dental problem in the last 6 months where you did not have access to dental care?: No Was dental information given to patient?: Patient has dentist HPI Annual exam HPI Details 74-year-old overweight male with gerd, h ypercholesterolemia, HTN, IGT, history of prostate cancer and asthma coming in for an annual well visit. Last seen in November 2023. 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 [facility] Medical History (Updated 06/04/24 @ 12:54 by Jose Wilson MD) Nasal polyp Obesity (BMI 30-39.9) Carpal tunnel syndrome History of prostate cancer GERD (gastroesophageal reflux disease) Arthritis IBS (irritable bowel syndrome) BPH (benign prostatic hyperplasia) Asthma Elevated cholesterol Hypertension Surgical History (Updated 02/28/23 @ 08:58 by Jose Wilson MD) Hx of shoulder surgery Hx of arthroscopic knee surgery History of prostatectomy S/P left knee arthroscopy History of colonoscopy History of incisional hernia repair Renal benign neoplasm Family History (Updated 02/28/23 @ 08:54 by Kaylyn West [facility]) Father CAD (coronary artery disease) CVD (cardiovascular disease) Heart disease Mother Hypertension Brother CVD (cardiovascular disease) Myocardial infarction Social History (Updated 06/04/24 @ 12:44 by Jose Wilson MD) Housing: House Alcohol intake: current Alcohol intake frequency: holidays/special occasions only Comment: 2 x a week 2 beers Patient Tobacco Use Status: Never used Tobacco e-Cigarette/Vaping Use: Never Used Second Hand Smoke Exposure: No service: Yes Current occupational status: retired Cognitive needs: No Hearing needs: Yes Vision needs: Yes Questionnaire Thrive Questionnaire Date Thrive assessed: 12/07/23 AUDIT C Alcohol Use Questionnaire (AUDIT-C) 1. How often do you have a drink containing alcohol?: Monthly or less 2. How many drinks containing alcohol do you have on a typical day when you are drinking?: 1 or 2 3. How often do you have six or more drinks on one occasion?: Never Total Score: 1 ALEXIA-7 AMB Questionnaire ALEXIA-7 Date ALEXIA - 7 assessed: 12/07/23 Feeling nervous, anxious, or on edge: 0 = Not at all Not being able to stop or control worryin = Not at all Worrying too much about different things: 0 = Not at all Trouble relaxin = Not at all Being so restless that it is hard to sit still: 0 = Not at all Becoming easily annoyed or irritable: 0 = Not at all Feeling afraid as if something awful might happen: 0 = Not at all Total ALEXIA-7 score (0-4 normal; 5-9 mild; 10-14 moderate; 15-21 severe): 0 Source: Developed by Drs. Patricio Andrews, Dana Young, Jaquan Brooks and colleagues, with an educational doris from [employer]. Review of Systems Const Denies poor appetite and Denies weakness Eyes Denies no additional complaints ENT Reports Normal hearing present, Denies dizziness, Denies nasal congestion, Denies tinnitus and Denies sore throat Card Denies chest pain, Denies syncope, Denies rapid heart rate and Denies dyspnea Resp Denies cough and Denies dyspnea GI Denies change in stool character, Reports constipation, Denies diarrhea, Denies nausea and Denies vomiting Denies dysuria and Denies urinary frequency Neuro Reports Normal hearing present, Denies confusion, Denies dizziness, Denies sync ope and Denies weakness Psych Denies confusion Physical exam (Primary Care) Vital Signs: Last Vital Signs Pulse 79 06/04/24 11:28 BP 130/72 06/04/24 11:28 Pulse Ox 96 06/04/24 11:28 Oxygen Delivery Method Room Air 06/04/24 11:28 BMI result Body Mass Index 29.2 Tobacco/Smoking Status: Tobacco use Status Tobacco use date assessed 12/07/23 06/04/24 11:28 Patient Tobacco Use Status Never used Tobacco 06/04/24 11:28 e-Cigarette/Vaping Use Never Used 06/04/24 11:28 Thrive Assessment: Date of Thrive Assessment Date Thrive assessed 12/07/23 06/04/24 11:28 Const General: No confusion Orientation/consciousness: No confusion HENMT Head: Yes normocephalic Ears: external ears normal and TM's normal bilaterally Face and sinus: Yes normal facial exam Mouth: moist mucous membranes Throat: Yes tonsils normal Eyes Conjunctivae: conjunctivae normal Pupils: Equal, round and reactive pupils present and Pupil accommodation reflex normal Direct Ophthalmoscopy: normal light reflex Neck Neck: No lymphadenopathy Thyroid: Thyroid normal Chest Chest palpation & inspection: normal inspection of the chest Resp Effort & Inspection: normal respiratory effort and no audible wheezes Auscultation: clear to auscultation bilaterally, no crackles, no wheezes and lung sounds not diminished Cardio Rate: regular rate Rhythm: regular rhythm Peripheral pulses: radial pulses present and dorsalis pedis present GI Other: guaiac negative no prostate perirectal erytherma Palpation (GI): no masses Auscultation: normal bowel sounds and normoactive bowel sounds Male General Exam: Yes normal external exam Skin General skin exam: no rashes or lesions noted Rashes: no rashes Neuro General: No confusion Cranial nerves: Yes Equal, round and reactive pupils present and Yes Normal hearing present Cognition (Neuro): normal cognition Gait exam (Neuro): Normal gait present Motor exam (neuro): 5/5 motor strength present throughout Deep tendon reflexes (DTR's): Right brachioradialis reflex intensity grade: 2+, Left brachioradialis reflex intensity grade: 2+, Right patellar reflex intensity grade: 2+ and Left patellar reflex intensity grade: 2+ Extrem General: No edema Assessment and Plan Assessment & Plan (1) Annual physical exam: Code(s): Z00.00 - Encounter for general adult medical examination without abnormal findings Plan: Patient is advised to eat healthy, keep well hydrated, keep active and have adequate sleep. (2) Overweight (BMI 25.0-29.9): Code(s): E66.3 - Overweight Plan: Diet and exercise (3) Asthma: Code(s): J45.909 - Unspecified asthma, uncomplicated Plan: Continue with the albuterol inhaler and Advair (4) History of prostate cancer: Comment: Dr. Gallardo 2016 robotic prostatectomy Code(s): Z85.46 - Personal history of malignant neoplasm of prostate Plan: Continue to follow-up with urology on under surveillance (5) Impaired glucose tolerance: Code(s): R73.02 - Impaired glucose tolerance (oral) Plan: Decrease the amount of carbohydrate intake, pasta, bread, rice and potatoes are all sugar and that is aside from all the sweet stuff, remember that fruits are good but they are Sweet also. (6) Hypertension: Code(s): I10 - Essential (primary) hypertension Qualifiers: Hypertension type: essential hypertension Qualified Code(s): I10 - Essential (primary) hypertension Plan: Continue with blood pressure medication. Decrease salt intake and exercise p atient on valsartan 160 mg once a day (7) GERD (gastroesophageal reflux disease): Code(s): K21.9 - Gastro-esophageal reflux disease without esophagitis Qualifiers: Esophagitis presence: without esophagitis Qualified Code(s): K21.9 - Gastro-esophageal reflux disease without esophagitis Plan: Avoid the foods that causes that usually spicy foods, tomato products, juices, coffee, soda and foods that your sensitive to. After eating do not lie down, allow 3-4 hours before in lie down. And keep the head of bed above 30 degrees to avoid the acid from going up. (8) Elevated cholesterol: Code(s): E78.00 - Pure hypercholesterolemia, unspecified Plan: Avoid fried foods, chicken skin, eggs, butter margarine, pastries and meat. Be it pork or beef they have a lot of cholesterol on rosuvastatin 5 mg once a day. May 2024 last blood work (9) Bilateral hand pain: Code(s): M79.641 - Pain in right hand; M79.642 - Pain in left hand Orders: Orders XR hand LT 2V Today M79.641 - Pain in right hand, M79.642 - Pain in left hand XR hand RT 2V Today M79.641 - Pain in right hand, M79.642 - Pain in left hand Referrals Rheumatology Referral M79.641 - Pain in right hand, M79.642 - Pain in left hand Coding Level of Care Code Est Pt Prev Care >65y(41290) Diagnoses Annual physical exam Z00.00 Overweight (BMI 25.0-29.9) E66.3 Asthma J45.909 History of prostate cancer Z85.46 Impaired glucose tolerance R73.02 Essential hypertension I10 Hypertension type: essential hypertension Gastroesophageal reflux disease without esophagitis K21.9 Esophagitis presence: without esophagitis Elevated cholesterol E78.00 Bilateral hand pain M79.641; M79.642
== END 2024-06-04 13:03 | disposition home or self-care (01) ==
PROVIDERS: PCP Internal Medicine; Visit Provider Internal Medicine
DX: Z00.00 Encounter for general adult medical examination without abnormal findings (principal); E66.3 Overweight; J45.909 Unspecified asthma, uncomplicated; Z85.46 Personal history of malignant neoplasm of prostate; R73.02 Impaired glucose tolerance (oral); I10 Essential (primary) hypertension; K21.9 Gastro-esophageal reflux disease without esophagitis; E78.00 Pure hypercholesterolemia, unspecified; M79.641 Pain in right hand; M79.642 Pain in left hand
CPT/HCPCS: 99397

== ENCOUNTER 2024-06-05 08:40 | Outpatient (REF) | payer MEDICARE, SELFPAY ==
--- NOTE | ~2024-06-05 | XR_ITS ---
EXAMINATION: XR HAND, BILATERAL CLINICAL INFORMATION: Pain COMPARISON: None available. TECHNIQUE: 3 views of each hand FINDINGS: RIGHT: No acute visible fracture or dislocation. Moderate to severe multi joint arthritic changes greatest at the first carpometacarpal joint. Chondrocalcinosis along the triangle fibrocartilaginous complex. Joint space alignment otherwise maintained. Soft tissues are unremarkable. LEFT: No acute visible fracture or dislocation. Moderate to severe multi joint arthritic changes greatest at the radiocarpal joints. 2 mm ossific focus along the ulnar styloid process potentially representing sequela of remote trauma. Suggestion of chondrocalcinosis along the triangular fibrocartilaginous complex and dorsum of the carpal bones. Joint spaces and alignment otherwise maintained. Soft tissues are unremarkable. XR/XR hand LT min 3V IMPRESSION: 1. No acute visible fracture or dislocation. 2. Bilateral moderate to severe multi joint arthritic changes greatest at the first carpometacarpal joint. 3. Bilateral chondrocalcinosis along the triangular fibrocartilaginous complex. 4. Left-sided 2 mm ossific focus along the ulnar styloid process potentially representing sequela of remote trauma.
--- NOTE | ~2024-06-05 | XR_ITS ---
EXAMINATION: XR HAND, BILATERAL CLINICAL INFORMATION: Pain COMPARISON: None available. TECHNIQUE: 3 views of each hand FINDINGS: RIGHT: No acute visible fracture or dislocation. Moderate to severe multi joint arthritic changes greatest at the first carpometacarpal joint. Chondrocalcinosis along the triangle fibrocartilaginous complex. Joint space alignment otherwise maintained. Soft tissues are unremarkable. LEFT: No acute visible fracture or dislocation. Moderate to severe multi joint arthritic changes greatest at the radiocarpal joints. 2 mm ossific focus along the ulnar styloid process potentially representing sequela of remote trauma. Suggestion of chondrocalcinosis along the triangular fibrocartilaginous complex and dorsum of the carpal bones. Joint spaces and alignment otherwise maintained. Soft tissues are unremarkable. XR/XR hand RT min 3V IMPRESSION: 1. No acute visible fracture or dislocation. 2. Bilateral moderate to severe multi joint arthritic changes greatest at the first carpometacarpal joint. 3. Bilateral chondrocalcinosis along the triangular fibrocartilaginous complex. 4. Left-sided 2 mm ossific focus along the ulnar styloid process potentially representing sequela of remote trauma.
== END 2024-06-05 08:41 | disposition home or self-care (01) ==
LOC: HO.XRAY 08:40
PROVIDERS: PCP Internal Medicine; Visit Provider Internal Medicine
DX: M79.641 Pain in right hand (principal); M79.642 Pain in left hand
CPT/HCPCS: 73130

== ENCOUNTER 2024-09-19 08:23 | Outpatient (AMB) | payer MEDICARE, SELFPAY ==
--- NOTE | 2024-09-19 08:30 | MHC.OFFVIS ---
Vital Signs 09/19/24 08:36 Height 5 ft 8 in Weight 196 lb 6.91 oz BMI 29.9 BP 134/80 Blood Pressure Location Rt brachial Position Sitting Pulse 79 Pulse Source Pulse Oximeter Pulse Oximetry (%) 98 Oxygen Delivery Method Room Air Intake Visit Reasons: bl hand pain/CM Intake Note: Patient presents for bilateral hand pain. I been feeling pain on both hands for about two years. I take Aleve x2 a day and it helps. Allergies amoxicillin [AMOXICILLIN] Allergy (Unknown, Verified 09/19/24 08:34) HIVES pravastatin Allergy (Unknown, Verified 09/19/24 08:34) Muscle Pain simvastatin Allergy (Unknown, Verified 09/19/24 08:34) Muscle Pain hay fever Allergy (Unknown, Uncoded 06/04/24 11:28) Sneezing Medication List - Last Reconciled 09/19/24 by Melba Jimenez MD albuterol sulfate 90 mcg/actuation 2 puffs inhalation Q6H PRN aspirin (Adult Low Dose Aspirin) 81 mg PO DAILY famotidine (Pepcid) 20 mg PO BEDTIME PRN fluticasone propion-salmeterol 250-50 mcg/dose (Advair Diskus) 1 inh inhalation BID multivitamin 1 tab PO DAILY naproxen sodium (Aleve) 220 mg PO BID PRN [REPLENEX 1 cap PO 2XD] rosuvastatin 5 mg PO Q OTHER DAY valsartan (Diovan) 160 mg PO DAILY 90 days HPI Comments Details: This is a 74-year-old male with generalized osteoarthritis who presents for follow-up. States that recently has been having more achy joints especially in his hands, elbows. Morning stiffness lasting 30 minutes, improves with hot shower. He takes Aleve 220 mg Twice daily which provides reasonable relief. COUNT INCLUDES THE [facility] Medical History (Updated 09/19/24 @ 09:16 by Melba Jimenez MD) Nasal polyp Obesity (BMI 30-39.9) Carpal tunnel syndrome History of prostate cancer GERD (gastroesophageal reflux disease) Arthritis IBS (irritable bowel syndrome) BPH (benign prostatic hyperplasia) Asthma Elevated cholesterol Hypertension Surgical History Hx of shoulder surgery Hx of arthroscopic knee surgery History of prostatectomy S/P left knee arthroscopy History of colonoscopy History of incisional hernia repair Renal benign neoplasm Family History Father CAD (coronary artery disease) CVD (cardiovascular disease) Heart disease Mother Hypertension Brother CVD (cardiovascular disease) Myocardial infarction Social History Housing: House Alcohol intake: current Alcohol intake frequency: holidays/special occasions only Comment: 2 x a week 2 beers Patient Tobacco Use Status: Never used Tobacco e-Cigarette/Vaping Use: Never Used Second Hand Smoke Exposure: No service: Yes Current occupational status: retired Cognitive needs: No Hearing needs: Yes Vision needs: Yes Review of Systems Musc Reports arthralgias, Denies joint swelling and Reports stiffness Physical Exam Vital Signs: Last Vital Signs Pulse 79 09/19/24 08:36 BP 134/80 09/19/24 08:36 Pulse Ox 98 09/19/24 08:36 Oxygen Delivery Method Room Air 09/19/24 08:36 BMI result Body Mass Index 29.9 Const General: cooperative, healthy appearing and comfortable Nutritional Appearance: overweight Orientation/consciousness: patient oriented x3 Limitations: no limitations HEENT Head: Yes normocephalic and Yes atraumatic Mouth: moist mucous membranes Resp Effort & Inspection: normal respiratory effort and able to speak in complete sentences Skin General skin exam: no rashes or lesions noted Neuro General: patient oriented x3 Extrem Other: Osteoarthritic changes of both hands Left 1st CMC joint tenderness with positive grind test Mildly tender Heberden's and Suzy's nodes 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 No elbow pain with full flexion-extension bilaterally Normal range of motion of shoulders No knee pain with flexion-extension bilaterally No knee swelling or tenderness bilaterally Negative Spurling's test bilaterally Normal nailfold capillaroscopy Assessment & Plan Assessment & Plan (1) Osteoarthritis of hands, bilateral: Code(s): M19.041 - Primary osteoarthritis, right hand; M19.042 - Primary osteoarthritis, left hand Category: Medical Qualifiers: Osteoarthritis type: primary Qualified Code(s): M19.041 - Primary osteoarthritis, right hand; M19.042 - Primary osteoarthritis, left hand Plan: This is a 74-year-old male with generalized osteoarthritis who presents for bilateral hand pain. Picture consistent with bilateral hand osteoarthritis. Discussed the nature of the condition and its management. Discussed different treatment options. I will refer patient to occupational therapy. Discussed long-term side effects of NSAIDs. Advised patient to try to cut down on using a leave, substitute a leave with Tylenol Arthritis as much as possible Consider turmeric supplementation Consider a paraffin wax machine Consider applying Voltaren gel to the affected joints Follow-up as needed Plan I spent 30 minutes reviewing patient's chart, evaluating patient, placing orders, counseling patient and documenting in the chart Orders: Orders OT Evaluation and Treatment Today M19.041 - Primary osteoarthritis, right hand, M19.042 - Primary osteoarthritis, left hand Coding Level of Care Code New Pt Level 3 (14047) Diagnoses Primary osteoarthritis of both hands M19.041; M19.042 Osteoarthritis type: primary
[2024-09-19 08:36] VITALS: BP 134/80; PULSE 79; O2SAT 98; BMI 29.9
== END 2024-09-19 09:14 | disposition home or self-care (01) ==
LOC: HO.RHE 08:23
PROVIDERS: PCP Internal Medicine; Visit Provider Student in an Organized Health Care Education/Training Program
DX: M19.041 Primary osteoarthritis, right hand (principal); M19.042 Primary osteoarthritis, left hand
CPT/HCPCS: 99203

== ENCOUNTER → 2024-09-19 08:23 | Outpatient (BNVA) | payer MEDICARE, SELFPAY | PROVIDERS: PCP Internal Medicine; Visit Provider Student in an Organized Health Care Education/Training Program | DX: M19.041 Primary osteoarthritis, right hand (principal); M19.042 Primary osteoarthritis, left hand | CPT/HCPCS: 99202 ==

== ENCOUNTER 2024-11-05 07:39 | Outpatient (RCR) | payer MEDICARE, SELFPAY ==
--- NOTE | 2024-10-08 10:11 | MHC.OT.EP ---
[address] [phone] Occupational Therapy Plan of Care Patient Name: Mathew Riggs Date of Evaluation: 10/08/24 Diagnosis: B arthritis hands/ wrist Pain Location: B hands / wrists Pain Score: 3 Pain Scale Used: Numeric (0 - 10) Aggravating Factors: Alleviating Factors: Aleeve, Heat/ moist heat Assessment: Pt is 74 yr old L hand dominant male who reports pain in B hands and wrists which over the last year has progressed and he reports it is keeping him from doing things around the house. He saw the MD who diagnosed him w/ OA and referred him to therapy to be taught symptom management and increase the functional use of his B hands. 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 Frequency and Duration: The patient will be seen 1x a week for 4 weeks Short Term Goals: Group Home Goals: Pt will adhere to Joint protection techniques Pt will be compliant w/ use of hand splints during activity to decrease pain Pt will report 2/10 pain w/ activity Treatment Plan: Therapeutic Exercise Therapeutic Activity Home Exercise Program Splinting Neuro Re-ed Patient Education Desensitization/Sensory Re-ed Edema Control ADL Training Ultrasound NMES Iontophoresis Paraffin Fluidotherapy MHP Cold Packs Joint Mobilization Soft Tissue Mobilization Kinesiotaping Other (see comments) Electronically Signed By: Alicia Swift OTR/L Please Sign and return to therapist. Thank you once again for your referral.
== END 2024-11-05 08:33 | disposition home or self-care (01) ==
LOC: HO.OT 07:39
PROVIDERS: PCP Internal Medicine; Visit Provider Student in an Organized Health Care Education/Training Program
DX: M19.041 Primary osteoarthritis, right hand (principal); M19.042 Primary osteoarthritis, left hand
CPT/HCPCS: 97035; 97140; 97165

== ENCOUNTER 2024-11-30 06:11 | Outpatient (REF) | payer MEDICARE, SELFPAY ==
[2024-11-30 06:27] LABS: MANUAL DIFF FLAG NO
[2024-11-30 07:19] LABS: Estimated Average Glucose 114 mg/dL; Hemoglobin A1C 143.0922 umol/L; Hemoglobin A1c % 5.6 % (<6.0); Total Hemoglobin (HGBA1C) 3772.5913 umol/L
[2024-11-30 07:27] LABS: Basophils Absolute Auto 0.1 X10*3/uL (0.0-0.2); Basophils Percent Auto 0.9 % (0-2); Eosinophils Absolute Auto 0.4 X10*3/uL (0.0-0.4); Eosinophils Percent Auto 5.2 % (0-4); Hematocrit 42.4 % (42.0-52.0); Hemoglobin 14.4 g/dl (14.0-18.0); Imm Gran Abs Auto 0.03 X10*3/uL (0.00-0.03); Imm Gran Pct Auto 0.4 % (0.0-0.4); Lymphocytes Absolute Auto 2.2 X10*3/uL (1.2-4.9); Lymphocytes Percent Auto 29.5 % (20-40); Mean Corpuscular Hemoglobin 30.4 pg (27.0-33.0); Mean Corpuscular Volume 89.6 fL (80.0-98.0); Mean Platelet Volume 10.1 fL (9.4-12.4); Monocytes Absolute Auto 0.7 X10*3/uL (0.1-1.2); Monocytes Percent Auto 9.1 % (2-11); Neutrophils Absolute Auto 4.1 x10*3/uL (2.0-8.3); Neutrophils Percent Auto 54.9 % (45-73); Platelet Count 215 X10*3/uL (160-400); Red Blood Count 4.73 X10*6/uL (4.60-5.80); Red Cell Distribution Width 12.5 % (11.0-16.0); White Blood Count 7.5 X10*3/uL (4.8-10.8)
[2024-11-30 07:53] LABS: Alanine Aminotransferase 22 U/L (0-40); Albumin Level 3.9 g/dL (3.5-5.0); Alkaline Phosphatase 80 U/L (39-117); Anion Gap 10 (12-20); Aspartate Amino Transferase 26 U/L (5-37); Bilirubin Total 1.2 mg/dL (0.0-1.0); Blood Urea Nitrogen 24 mg/dL (9-16); Calcium 9.5 mg/dL (8.4-10.2); Carbon Dioxide 25 mmol/L (22-29); Chloride 108 mmol/L (96-108); Cholesterol 167 mg/dL (<200); Estimated Glomerular Filt Rate > 60; Glucose Random 102 mg/dL (60-115); HDL Cholesterol 45 mg/dL (>40); LDL Cholesterol Calculated 110 mg/dL (<100); Potassium 4.4 mmol/L (3.3-5.1); Sodium 139 mmol/L (135-145); Total Protein 6.8 g/dL (6.5-8.0); Triglycerides 64 mg/dL (<150)
[2024-11-30 08:11] LABS: PSA,Total (Free>4and<10) < 0.10 ng/mL (0.00-4.00)
== END 2024-11-30 06:12 | disposition home or self-care (01) ==
LOC: HO.LAB 06:11
PROVIDERS: PCP Internal Medicine; Visit Provider Internal Medicine
DX: R73.02 Impaired glucose tolerance (oral) (principal); E78.00 Pure hypercholesterolemia, unspecified; Z85.46 Personal history of malignant neoplasm of prostate; Z12.5 Encounter for screening for malignant neoplasm of prostate
CPT/HCPCS: 36415; 80053; 80061; 83036; 84153; 85025

== ENCOUNTER 2024-12-05 08:34 | Outpatient (AMB) | payer MEDICARE, SELFPAY ==
[2024-12-05 08:54] VITALS: BP 140/78; PULSE 69; O2SAT 97; BMI 32.4
--- NOTE | 2024-12-05 08:54 | MHC.PC.OV ---
Vital Signs 12/05/24 08:54 Height 5 ft 6 in Weight 201 lb BMI 32.4 BP 140/78 H Blood Pressure Location Lt brachial Position Sitting Pulse 69 Pulse Source Pulse Oximeter Pulse Oximetry (%) 97 Oxygen Delivery Method Room Air Intake Visit Reasons: Hypertension Intake Note: Patient did have a cup of coffee prior to coming in. Allergies amoxicillin [AMOXICILLIN] Allergy (Unknown, Verified 12/05/24 08:55) HIVES pravastatin Allergy (Unknown, Verified 12/05/24 08:55) Muscle Pain simvastatin Allergy (Unknown, Verified 12/05/24 08:55) Muscle Pain hay fever Allergy (Unknown, Uncoded 12/05/24 08:55) Sneezing Medication List - Last Reconciled 12/05/24 by Jose Nino Po, albuterol sulfate 90 mcg/actuation 2 puffs inhalation Q6H PRN aspirin (Adult Low Dose Aspirin) 81 mg PO DAILY diclofenac sodium 1% (Voltaren Arthritis Pain) 4 grams topical QID famotidine (Pepcid) 20 mg PO BEDTIME PRN fluticasone propion-salmeterol 250-50 mcg/dose (Wixela Inhub) 1 inh inhalation BID multivitamin 1 tab PO DAILY naproxen sodium (Aleve) 220 mg PO BID PRN [REPLENEX 1 cap PO 2XD] rosuvastatin 5 mg PO Q OTHER DAY valsartan (Diovan) 160 mg PO DAILY 90 days Tobacco use date assessed: 12/05/24 Fall risk assessment: No Falls in past year Last assessed Fall Risk: 12/05/24 Dental Screening Dental Screen Date: 12/05/24 Did you have a dental visit in the last 12 months?: Yes Did you have a dental problem in the last 6 months where you did not have access to dental care?: No Was dental information given to patient?: Patient has dentist HPI Hypertension HPI Details The patient is a 74-year-old male presenting with a routine follow-up for chronic conditions management and medication review. The patient's history of essential hypertension was noted, with a current blood pressure reading of 140/80 mmHg, while being on antihypertensive medication. There were discussions about the need to monitor and maintain blood pressure ideally at 120/80 mmHg. The patient has osteoarthritis and has been managing associated joint pain primarily with naproxen. Concerns were raised about the potential impact of long-term use of this medication on renal function. The patient reports a history of bronchitis, which resolved after one month, with the use of Wexella and ProAir inhalers. The patient?s weight has increased over time, partially attributed to colder weather clothing, with discussions around needing to reduce BMI. The patient?s blood work was reviewed; kidney function remained stable, with a mildly elevated creatinine of 1.3. The patient is noted to have hyperlipidemia, with LDL cholesterol at 110. The patient's vaccinations were reviewed, and he is up-to-date except for RSV, which he plans to receive. [facility] Medical History (Updated 09/19/24 @ 09:16 by Melba Jimenez MD) Nasal polyp Obesity (BMI 30-39.9) Carpal tunnel syndrome History of prostate cancer GERD (gastroesophageal reflux disease) Arthritis IBS (irritable bowel syndrome) BPH (benign prostatic hyperplasia) Asthma Elevated cholesterol Hypertension Surgical History Hx of shoulder surgery Hx of arthroscopic knee surgery History of prostatectomy S/P left knee arthroscopy History of colonoscopy History of incisional hernia repair Renal benign neoplasm Family History Father CAD (coronary artery disease) CVD (cardiovascular disease) Heart disease Mother Hypertension Brother CVD (cardiovascular disease) Myocardial infarction Social History Housing: House Alcohol intake: current Alcohol intake frequency: holidays/special occasions only Comment: 2 x a week 2 beermariah Patient Tobacco Use Status: Never used Tobacco Tobacco use type: Cigarette e-Cigarette/Vaping Use: Never Used Second Hand Smoke Exposure: No service: Yes Current occupational status: retired Cognitive needs: No Hearing needs: Yes Vision needs: Yes Questionnaire PHQ-9 Over the last 2 weeks, how often have you been bothered by any of the following problems? 1. Little interest or pleasure in doing things: not at all 2. Feeling down, depressed, or hopeless: not at all 3. Trouble falling or staying asleep, or sleeping too much: not at all 4. Feeling tired or having little energy: not at all 5. Poor appetite or overeating: not at all 6. Feeling bad about yourself - or that you are a failure or have let yourself or your family down: not at all 7. Trouble concentrating on things, such as reading the newspaper or watching television: not at all 8. Moving or speaking so slowly that other people could have noticed. Or the opposite - being so fidgety or restless that you have been moving around a lot more than usual: not at all 9. Thoughts that you would be better off or of hurting yourself in some way: not at all Total score: 0 Depression Screening Interpretation: Negative Depression Screening Done: Yes Source: Developed by Drs. Patricio Andrews, Dana Young, Jaquan Brooks and colleagues, with an educational doris from [employer]. Thrive Questionnaire Date Thrive assessed: 12/05/24 I am a: Patient What is your living situation today?: I have a steady place to live Within the past 12 months, did the food you bought not last and you didn't have the money to get more?: Never true Within the past 12 months, did you worry whether your food would run out before you got money to buy more?: Never true Do you have trouble paying for medicines?: No Do you have trouble getting transportation to medical appointments?: No Do you have trouble paying your heating and electricity bill?: No Do you have trouble taking care of your child, family member or friend?: No Do you have trouble with day-to-day activities such as bathing, preparing meals, shopping, managing finances, etc.?: No Are you currently unemployed and looking for a job?: No Are you interested in more education?: No Currently or been in a relationship where the following occur: No concerns reported THRIVE Score: 0 AUDIT C Alcohol Use Questionnaire (AUDIT-C) 2. How many drinks containing alcohol do you have on a typical day when you are drinking?: 1 or 2 3. How often do you have six or more drinks on one occasion?: Never Total Score: 0 ALEXIA-7 AMB Questionnaire ALEXIA-7 Date ALEXIA - 7 assessed: 12/05/24 Feeling nervous, anxious, or on edge: 0 = Not at all Not being able to stop or control worryin = Not at all Worrying too much about different things: 0 = Not at all Trouble relaxin = Not at all Being so restless that it is hard to sit still: 0 = Not at all Becoming easily annoyed or irritable: 0 = Not at all Feeling afraid as if something awful might happen: 0 = Not at all Total ALEXIA-7 score (0-4 normal; 5-9 mild; 10-14 moderate; 15-21 severe): 0 Source: Developed by Drs. Patricio Andrews, Dana Young, Jaquan Brooks and colleagues, with an educational doris from [employer]. Physical exam (Primary Care) Vital Signs: Last Vital Signs Pulse 69 12/05/24 08:54 BP 140/78 H 12/05/24 08:54 Pulse Ox 97 12/05/24 08:54 Oxygen Delivery Method Room Air 12/05/24 08:54 BMI result Body Mass Index 32.4 Tobacco/Smoking Status: Tobacco use Status Tobacco use date assessed 12/05/24 12/05/24 09:00 Patient Tobacco Use Status Never used Tobacco 12/05/24 09:00 Tobacco use type Cigarette 12/05/24 09:00 e-Cigarette/Vaping Use Never Used 12/05/24 09:00 PHQ-9: PHQ-9 Score PHQ-9: Total score 0 12/05/24 09:00 Depression Screening Interpretation: Negative Thrive Assessment: Date of Thrive Assessment Date Thrive assessed 12/05/24 12/05/24 09:00 Currently or been in a relationship where the following occur: No concerns reported Const General: alert; No acute distress Eyes Conjunctivae: conjunctivae normal Resp Auscultation: clear to auscultation bilaterally Cardio Rate: regular rate Rhythm: regular rhythm GI Inspection: Yes normal to inspection Extrem General: Yes normal to inspection and No edema Coding Level of Care Code Est Pt Level 4 (10769) Diagnoses Primary osteoarthritis of both hands M19.041; M19.042 Osteoarthritis type: primary History of prostate cancer Z85.46 Essential hypertension I10 Hypertension type: essential hypertension Elevated cholesterol E78.00 Gastroesophageal reflux disease without esophagitis K21.9 Esophagitis presence: without esophagitis Impaired glucose tolerance R73.02 Assessment & Plan Assessment & Plan (1) Osteoarthritis of hands, bilateral: Code(s): M19.041 - Primary osteoarthritis, right hand; M19.042 - Primary osteoarthritis, left hand Category: Medical Qualifiers: Osteoarthritis type: primary Qualified Code(s): M19.041 - Primary osteoarthritis, right hand; M19.042 - Primary osteoarthritis, left hand (2) History of prostate cancer: Comment: Dr. Gallardo 2016 robotic prostatectomy Code(s): Z85.46 - Personal history of malignant neoplasm of prostate Category: Medical (3) Hypertension: Code(s): I10 - Essential (primary) hypertension Category: Medical Qualifiers: Hypertension type: essential hypertension Qualified Code(s): I10 - Essential (primary) hypertension (4) Elevated cholesterol: Code(s): E78.00 - Pure hypercholesterolemia, unspecified Category: Medical (5) GERD (gastroesophageal reflux disease): Code(s): K21.9 - Gastro-esophageal reflux disease without esophagitis Category: Medical Qualifiers: Esophagitis presence: without esophagitis Qualified Code(s): K21.9 - Gastro-esophageal reflux disease without esophagitis (6) Impaired glucose tolerance: Code(s): R73.02 - Impaired glucose tolerance (oral) Category: Medical Plan - Continue monitoring blood pressure, target 120/80 mmHg, and record readings regularly. - Transition from naproxen to topical diclofenac gel for osteoarthritis pain to preserve renal function. - Educate patient on dietary changes to aid in weight loss and lower BMI, with an emphasis on plant-based foods and limited animal protein. - Ensure maintenance of physical activity to manage osteoarthritis symptoms and support weight loss. - Use Wexella inhaler as prescribed, avoid concurrent use with Advair. - Confirm prescription for Wixella or ProAir based on insurance coverage. - Administer RSV vaccine as recommended for added protection during respiratory infection season. - Advise continued vigilance against infections; encourage mask-wearing as needed. - Maintain regular follow-ups as scheduled; next visit in six months. - Ensure ongoing monitoring of kidney function due to potential impacts of previously used medications. Orders: Orders Complete Blood Count Auto Diff 6 Months I10 - Essential (primary) hypertension Comprehensive Met. Panel 6 Months I10 - Essential (primary) hypertension Thyroid Stimulating Hormone 6 Months I10 - Essential (primary) hypertension Vitamin B12 and Folate 6 Months I10 - Essential (primary) hypertension Prostate Specific Antigen Scr 6 Months I10 - Essential (primary) hypertension Hemoglobin A1c 6 Months I10 - Essential (primary) hypertension Lipid Panel 6 Months E78.00 - Pure hypercholesterolemia, unspecified, I10 - Essential (primary) hypertension Free T4 (Free Thyroxine) 6 Months I10 - Essential (primary) hypertension Erythrocyte Sedimentation Rate 6 Months I10 - Essential (primary) hypertension C Reactive Protein 6 Months I10 - Essential (primary) hypertension Medications: New diclofenac sodium 1% (Voltaren Arthritis Pain) apply to single knee, ankle, foot; for foot includes sole/toes/top of foot 4 grams topical QID 400 grams 10RF M19.041 - Primary osteoarthritis, right hand, M19.042 - Primary osteoarthritis, left hand
== END 2024-12-05 09:38 | disposition home or self-care (01) ==
PROVIDERS: PCP Internal Medicine; Visit Provider Internal Medicine
DX: M19.041 Primary osteoarthritis, right hand (principal); M19.042 Primary osteoarthritis, left hand; Z85.46 Personal history of malignant neoplasm of prostate; I10 Essential (primary) hypertension; E78.00 Pure hypercholesterolemia, unspecified; K21.9 Gastro-esophageal reflux disease without esophagitis; R73.02 Impaired glucose tolerance (oral)

== ENCOUNTER → 2024-12-05 08:34 | Outpatient (BNVA) | payer MEDICARE, SELFPAY | PROVIDERS: PCP Internal Medicine; Visit Provider Internal Medicine | DX: M19.041 Primary osteoarthritis, right hand (principal); M19.042 Primary osteoarthritis, left hand; I10 Essential (primary) hypertension; E78.00 Pure hypercholesterolemia, unspecified; K21.9 Gastro-esophageal reflux disease without esophagitis; R73.02 Impaired glucose tolerance (oral); Z85.46 Personal history of malignant neoplasm of prostate | CPT/HCPCS: 99212 ==

== ENCOUNTER 2024-12-19 15:46 | Outpatient (REF) | payer MEDICARE, SELFPAY ==
[2024-12-19 16:53] LABS: Influenza A PCR NEGATIVE (Negative); Influenza B PCR NEGATIVE (Negative); Resp Syncy Virus RNA Qual PCR NEGATIVE (Negative); SARS COV2 PCR INHOUSE POSITIVE (Negative)
== END 2024-12-19 15:47 | disposition home or self-care (01) ==
LOC: HO.LAB 15:46
PROVIDERS: PCP Internal Medicine; Visit Provider Internal Medicine
DX: J98.8 Other specified respiratory disorders (principal)
CPT/HCPCS: 0241U

== ENCOUNTER 2025-01-04 13:28 | Outpatient (AMB) | payer MEDICARE, SELFPAY ==
--- NOTE | 2025-01-04 13:32 | A.OFFPC_ITS ---
Intake Visit Reasons: Cold Symptoms Allergies amoxicillin [AMOXICILLIN] Allergy (Unknown, Verified 01/04/25 13:39) HIVES pravastatin Allergy (Unknown, Verified 01/04/25 13:39) Muscle Pain simvastatin Allergy (Unknown, Verified 01/04/25 13:39) Muscle Pain hay fever Allergy (Unknown, Uncoded 01/04/25 13:39) Sneezing Tobacco use date assessed: 12/05/24 Fall risk assessment: No Falls in past year Last assessed Fall Risk: 01/04/25 Dental Screening Dental Screen Date: 01/04/25 Did you have a dental visit in the last 12 months?: Yes Did you have a dental problem in the last 6 months where you did not have access to dental care?: No Was dental information given to patient?: Patient has dentist HPI Cold Symptoms HPI Details positive for covid 2 .5 weeks , no fever, coughing and productive c oucha, SHORT, PFSH Medical History (Updated 01/04/25 @ 15:11 by Jose Wilson MD) Nasal polyp Obesity (BMI 30-39.9) Carpal tunnel syndrome History of prostate cancer GERD (gastroesophageal reflux disease) Arthritis IBS (irritable bowel syndrome) BPH (benign prostatic hyperplasia) Asthma Elevated cholesterol Hypertension Surgical History Hx of shoulder surgery Hx of arthroscopic knee surgery History of prostatectomy S/P left knee arthroscopy History of colonoscopy History of incisional hernia repair Renal benign neoplasm Family History Father CAD (coronary artery disease) CVD (cardiovascular disease) Heart disease Mother Hypertension Brother CVD (cardiovascular disease) Myocardial infarction Social History Housing: House Alcohol intake: current Alcohol intake frequency: holidays/special occasions only Comment: 2 x a week 2 beers Patient Tobacco Use Status: Never used Tobacco Tobacco use type: Cigarette e-Cigarette/Vaping Use: Never Used Second Hand Smoke Exposure: No service: Yes Current occupational status: retired Cognitive needs: No Hearing needs: Yes Vision needs: Yes Questionnaire Thrive Questionnaire Date Thrive assessed: 12/05/24 ALEXIA-7 AMB Questionnaire ALEXIA-7 Date ALEXIA - 7 assessed: 12/05/24 Source: Developed by Drs. Patricio Andrews, Dana Young, Jaquan Brooks and colleagues, with an educational doris from [email or web address]. Physical exam (Primary Care) Tobacco/Smoking Status: Tobacco use Status Tobacco use date assessed 12/05/24 01/04/25 13:32 Patient Tobacco Use Status Never used Tobacco 01/04/25 13:32 Tobacco use type Cigarette 01/04/25 13:32 e-Cigarette/Vaping Use Never Used 01/04/25 13:32 Thrive Assessment: Date of Thrive Assessment Date Thrive assessed 12/05/24 01/04/25 13:32 Telehealth Telehealth Telehealth Platform: Telephone Location of provider rendering services: practice address Location of patient: address on file Patient Identification confirmed using: Name, : Yes Telehealth method: voice only Patient verbally consented to treatment: Yes Patient verbally consented to billing insurance company: Yes Patient informed of any privacy concerns related to visit: Yes Minutes spent on Phone/Video with Pt.: 25 Coding Level of Care Code Tele Est Pt Level 4 (90894) Diagnoses Asthma J45.909 History of prostate cancer Z85.46 Impaired glucose tolerance R73.02 Acute bronchitis J20.9 Assessment & Plan Assessment & Plan (1) Asthma: Code(s): J45.909 - Unspecified asthma, uncomplicated Category: Medical Plan: continue with the inhaler and controller (2) History of prostate cancer: Comment: Dr. Gallardo 2016 robotic prostatectomy Code(s): Z85.46 - Personal history of malignant neoplasm of prostate Category: Medical (3) Impaired glucose tolerance: Code(s): R73.02 - Impaired glucose tolerance (oral) Category: Medical (4) Acute bronchitis: Code(s): J20.9 - Acute bronchitis, unspecified Category: Medical Plan History of Present Illness The patient is a 74-year-old male presenting with COVID-19 infection, bronchitis, and headache management. The patient tested positive for COVID-19 approximately two and a half weeks ago and reports persistent symptoms including a worsening cough and chest congestion. The bronchitis symptoms have been exacerbated, causing wheezing and tightness in the chest, which is temporarily relieved with the use of an inhaler. He states that expectorated sputum has recently turned yellow. Additionally, the patient reports a new onset headache characterized by a pounding sensation and a fuzzy feeling in the head, which has developed over the past couple of days. The patient has utilized amoxicillin in the past and agrees to commence a Z-anushka (azithromycin) treatment. 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 The patient noted a normal hemoglobin A1c despite slightly elevated blood sugar. Review of Systems - Respiratory: Reports cough, chest congestion, and wheezing. - Neurologic: Reports headache characterized by a pounding sensation and feeling of fuzziness. - Gastrointestinal: Reports past diarrhea while on Paxlovid but none currently. Reports a sore stomach following Paxlovid completion. - Genitourinary: Reports blood in urine. Plan Patient was informed and verbally consented to the use of an ambient scribe for clinic note documentation during this visit. 1. Obesity No specific management was discussed during the visit. 2. Covid-19 Infection Recommend antibiotic therapy with a Z-anushka. Discussed past use of Paxlovid and possible gastrointestinal side effects. 3. Asthma Continue use of Wixela inhaler with adherence to rinsing mouth post-inhalation. Discussed the potential need for steroids but decided to monitor current inhaler response instead. 4. Blood In Urine Follow up with the urologist's intended management including ultrasound and cystoscopy. 5. Hypercholesterolemia Continue monitoring as per previous guidance. No direct intervention discussed today. 6. Headache It's likely secondary to prolonged coughing and is managed symptomatically. Recommendations included hydration and monitoring. 7. Hypertension Continue with current management regimen; no changes were discussed in this visit. 8. Bronchitis Prescribed Z-anushka to target secondary bacterial infection. Discussion of symptom management included inhaler usage. 9. History Of Prostate Cancer Continue routine surveillance as PSA is currently undetectable. The urologist is actively monitoring the condition with recent urine cytology, an upcoming ultrasound, and a scheduled cystoscopy. Discussion Notes During the visit, the patient and I discussed ongoing symptoms related to his COVID-19 infection and the bronchitis, including persistent cough, chest congestion, and new-onset headaches. We addressed the possibility of a secondary bacterial infection, leading to the decision to treat with azithromycin (Z- anushka). The potential need for steroids for asthma exacerbation was considered, but we decided to rely on the current inhaler therapy unless symptoms necessitate further intervention. Additionally, the patient informed me of blood in his urine and detailed that he is under evaluation by his urologist, including urine cytology and upcoming diagnostic imaging and cystoscopy. We also reviewed the impact of Paxlovid on his gastrointestinal symptoms. I advised him to monitor his hydration level and report any persisting or worsening symptoms. Patient Instructions - Begin the prescribed Z-anushka (azithromycin) as directed. - Continue using the Wixela inhaler. Remember to rinse your mouth after each use. - Stay hydrated to help alleviate headache symptoms. - Monitor for any further respiratory or urinary symptoms and report any changes. - Attend scheduled follow-ups and procedures with urology as discussed. - If symptoms worsen or do not improve, please contact our office. - Maintain your current management plan for chronic conditions as previously discussed. Medications: New azithromycin (Zithromax) For 250 mg dose pack: take 500 mg today (day 1), then 250 mg for 4 days (days 2-5) PO 6 tabs 0RF J20.9 - Acute bronchitis, unspecified
--- OUTSIDE RECORDS SUMMARY | 2025-01-04 13:49 | XMS_ITS | Encounter Summary ---
Author Organization [facility] Address [address] [place] [address] Care Team Providers Care Kieselguhr Regenerator Operator Name Role Phone Physician, Pcp Unknown Primary Care Provider Gerda vailable Encounter Details Date Type Department Care Team (Late st Contact Info) Description 12/28/2024 Lab Requisition [facility] - Main Lab [address] [facility] [place] [address] Wei Gallardo MD [address] [place] [address] Other microscopic hematuria Social History Tobacco Use Types Packs/Day Years Used Date Smoking Tobacco: Never Assessed Sex and Gender Information Value Date Recorded Sex Assigned at Not on file Legal Sex Male 8:20 AM EST Gender Identity Not on file Sexual Orientation Not on file documented as of this encounter Plan of Treatment Scheduled Orders Name Type Priority Associated Diagnoses Orde r Schedule Anatomic pathology outside consult Pathology and Cytology Routine Other microscopic hematuria Ordered: 12/28/2024 documented as of this encounter Visit Diagnoses Diagnosis Other microscopic hematuria documented in this encounter Care Teams Kieselguhr Regenerator Operator Relationship Specialty Start Date End Date Physician, Pcp Unknown PCP - General 12/28/24 12/28/24 documented as of this encounter
--- OUTSIDE RECORDS SUMMARY | 2025-01-04 13:49 | XMS_ITS | Encounter Summary ---
Author Organization [facility] Address [address] [place] [address] Care Team Providers Care Shucker Name Role Phone Physician, Pcp Unknown Primary Care Provider Gerda vailable Encounter Details Date Type Department Care Team (Late st Contact Info) Description 12/28/2024 Lab Requisition [facility] - Main Lab [address] [facility] [place] [address] Wei Gallardo MD [address] [place] [address] Other microscopic hematuria Social History Tobacco Use Types Packs/Day Years Used Date Smoking Tobacco: Never Assessed Sex and Gender Information Value Date Recorded Sex Assigned at Not on file Legal Sex Male 8:20 AM EST Gender Identity Not on file Sexual Orientation Not on file documented as of this encounter Plan of Treatment Not on file documented as of this encounter Procedures Procedure Name Priority Date/Time Associated Diagnosis Comments AP OUTSIDE CONSULT Routine 12/26/2024 12 :00 AM EST Other microscopic hematuria documented in this encounter Results * Anatomic pathology outside consult (12/26/2024 12:00 AM EST) Final Diagnosis A. Urine, Voided, ([id number]): Negative for high grade urothelial carcinoma. 01/02/2025 8:53 AM EST [facility] Gross Description A. Urine, Voided, ([id number]): Received one ThinPrep slide for cytology primary diagnosis. 01/02/2025 8:53 AM EST [facility] Disclaimer Unless otherwise specified, all tissue is 10% NB formalin fixed and paraffin embedded. Technical pathology services provided by [facility] at [address], [place] [address] (CLIA #[id number]/S tray Blanchard MD, Director Summer Sessions) 01/02/2025 8:53 AM EST [facility] Tissue Urine specimen from urethra / Unknown 12/26/2024 12/28/2024 8:29 AM EST us Wei Gallardo MD LAB PATHOLOGY ORDERABLES Fi nal Result [facility] [address] [place] [address], documented in this encounter Visit Diagnoses Diagnosis Other microscopic hematuria documented in this encounter Care Teams Shucker Relationship Specialty Start Date End Date Physician, Pcp Unknown PCP - General 12/28/24 12/28/24 documented as of this encounter
--- OUTSIDE RECORDS SUMMARY | 2025-01-04 13:49 | XMS_ITS | Clinical Summary ---
Author Organization [address] [facility] Address [address] [place] [address] Phone Care Team Providers Care Cash Sales Audit Clerk Name Role Phone Unavailable Primary Care Provider Unavailabl e Encounters Date Type Department Care Team Description 12/28/2024 Lab Requisition [facility] Lab [address] [place] [address] Wei Gallardo MD Other microscopic hematuria 12/28/2024 Lab Requisition [facility] Lab [address] [place] [address] Wei Gallardo MD Other microscopic hematuria from Last 3 Months Social History Tobacco Use Types Packs/Day Years Used Date Smoking Tobacco: Never Assessed Sex and Gender Information Value Date Recorded Sex Assigned at Not on file Legal Sex Male 8:20 AM EST Gender Identity Not on file Sexual Orientation Not on file Plan of Treatment Health Maintenance Due Date Last Done Comments DTaP,Tdap,and Td Vaccines (1 - Tdap) 1967 Pneumococcal Vaccine: 50+ Ye ars (1 of 1 - PCV) 1998 Zoster Vaccines (1 of 2) 1998 RSV Immunization Patients 60 + Years Old (1 - 1-dose 75+ series) 2023 COVID-19 Vaccine (1 - 2023-2 5 season) 2024 Influenza Vaccine (#1) 2024 Cholesterol Screening (Lipid Panel) 12/28/2024 Depression Screening 12/28/2024 Falls Risk Assessment 12/28/2024 Hepatitis C Screening 12/28/2024 Medicare Annual Wellness Visit 12/28/2024 Social Influencers of Health Screening 12/28/2024 HIB Vaccines Aged Out No longer eligi ble based on patient's age to complete this topic HPV Vaccines Aged Out No longer eligi ble based on patient's age to complete this topic Hepatitis A Vaccines Aged Out No long er eligible based on patient's age to complete this topic Hepatitis B Vaccines Aged Out No long er eligible based on patient's age to complete this topic IPV Vaccines Aged Out No longer eligi ble based on patient's age to complete this topic MMR Vaccines Aged Out No longer eligi ble based on patient's age to complete this topic Meningococcal ACWY Vaccine Aged Out N o longer eligible based on patient's age to complete this topic Meningococcal B Vacine Aged Out No lo nger eligible based on patient's age to complete this topic RSV Immunization Patients Un sondra 20 months Aged Out No longer eligible b ased on patient's age to complete this topic Varicella Vaccines Aged Out No longer eligible based on patient's age to complete this topic Procedures Procedure Name Priority Date/Time Associated Diagnosis Comments AP OUTSIDE CONSULT Routine 12/26/2024 12 :00 AM EST Other microscopic hematuria from Last 3 Months Results * Anatomic pathology outside consult (12/26/2024 12:00 AM EST) Final Diagnosis A. Urine, Voided, ([id number]): Negative for high grade urothelial carcinoma. 01/02/2025 8:53 AM EST [facility] Gross Description A. Urine, Voided, ([id number]): Received one ThinPrep slide for cytology primary diagnosis. 01/02/2025 8:53 AM [facility] Disclaimer Unless otherwise specified, all tissue is 10% NB formalin fixed and paraffin embedded. Technical pathology services provided by [facility] at [address] [place] [address] [address], [place] [address] (CLIA #[id number]/S tray Blanchard MD, Medical Oncologist) 01/02/2025 8:53 AM [facility] Tissue Urine specimen from urethra / Unknown 12/26/2024 12/28/2024 8:29 AM EST us Wei Gallardo MD LAB PATHOLOGY ORDERABLES Fi nal Result [facility] LAB [address] [place] [address], from Last 3 Months Insurance [employer]
== END 2025-01-04 16:54 | disposition home or self-care (01) ==
LOC: HO.HMCH 13:28
PROVIDERS: PCP Internal Medicine; Visit Provider Internal Medicine
DX: J45.909 Unspecified asthma, uncomplicated (principal); Z85.46 Personal history of malignant neoplasm of prostate; R73.02 Impaired glucose tolerance (oral); J20.9 Acute bronchitis, unspecified

== ENCOUNTER → 2025-01-04 13:28 | Outpatient (BNVA) | payer MEDICARE, SELFPAY | PROVIDERS: PCP Internal Medicine; Visit Provider Internal Medicine ==

== ENCOUNTER 2025-04-05 16:10 | Outpatient (AMB) | payer MEDICARE, SELFPAY ==
--- NOTE | 2025-04-05 16:12 | A.OFFPC_ITS ---
Intake Visit Reasons: Cough, flu like symptoms and Headaches Bail Bond Agent Required: No Information Interpreted: non-clinical & clinical Broadcast News Producer: Not Required per policy Accompanied by: Self / Same As Patient Allergies amoxicillin [AMOXICILLIN] Allergy (Unknown, Verified 04/05/25 17:27) HIVES pravastatin Allergy (Unknown, Verified 04/05/25 17:27) Muscle Pain simvastatin Allergy (Unknown, Verified 04/05/25 17:27) Muscle Pain hay fever Allergy (Unknown, Uncoded 04/05/25 17:27) Sneezing Medication List - Last Reconciled 04/05/25 by ALEXANDRA Mayorga albuterol sulfate 90 mcg/actuation 2 puffs inhalation Q6H PRN aspirin (Adult Low Dose Aspirin) 81 mg PO DAILY diclofenac sodium 1% (Voltaren Arthritis Pain) 4 grams topical QID famotidine (Pepcid) 20 mg PO BEDTIME PRN fluticasone propion-salmeterol 250-50 mcg/dose (Wixela Inhub) 1 inh inhalation BID multivitamin 1 tab PO DAILY naproxen sodium (Aleve) 220 mg PO BID PRN [REPLENEX 1 cap PO 2XD] rosuvastatin 5 mg PO Q OTHER DAY valsartan (Diovan) 160 mg PO DAILY 90 days Tobacco use date assessed: 12/05/24 Fall risk assessment: No Falls in past year Last assessed Fall Risk: 04/05/25 Dental Screening Dental Screen Date: 01/04/25 HPI Cough, flu like symptoms and Headaches HPI Details This is a medically necessary visit as the patient would typically be seen in the office, however, the patient is unable to come in the office so the visit was converted to an audiovisual, telephone visit format with patient's consent and request. Patient understands that this visit was in place of an in person visit and is aware of the risks of communicating via phone/computer and verbally consents. The patient is a 75-year-old male presenting with acute respiratory symptoms, including cough with yellow sputum production and dizziness. Symptoms began earlier in the week, usually triggered by chronic bronchitis exacerbation due to cold weather exposure. The patient's symptoms included the production of thick, yellow sputum, along with a sensation of dizziness. He reports a pounding sensation upon waking, which alleviates as the day progresses, and denies fever. Usual arthritis symptoms persist, but there is no acute exacerbation noted. The patient denies sore throat or ear pain and tested negative for COVID-19 two days before the consultation. He acknowledges nasal congestion but has not used available nasal sprays. Regular management includes inhalers, Tylenol, and Aleve, reserving antibiotics like the Z-Shamir for atypical episodes. His allergen sensitivity includes amoxicillin. [facility] Medical History Nasal polyp Obesity (BMI 30-39.9) Carpal tunnel syndrome History of prostate cancer GERD (gastroesophageal reflux disease) Arthritis IBS (irritable bowel syndrome) BPH (benign prostatic hyperplasia) Asthma Elevated cholesterol Hypertension Surgical History Hx of shoulder surgery Hx of arthroscopic knee surgery History of prostatectomy S/P left knee arthroscopy History of colonoscopy History of incisional hernia repair Renal benign neoplasm Family History Father CAD (coronary artery disease) CVD (cardiovascular disease) Heart disease Mother Hypertension Brother CVD (cardiovascular disease) Myocardial infarction Social History Housing: House Alcohol intake: current Alcohol intake frequency: holidays/special occasions only Comment: 2 x a week 2 renetta Patient Tobacco Use Status: Never used Tobacco Tobacco use type: Cigarette e-Cigarette/Vaping Use: Never Used Second Hand Smoke Exposure: No service: Yes Current occupational status: retired Cognitive needs: No Hearing needs: Yes Vision needs: Yes Questionnaire Thrive Questionnaire Date Thrive assessed: 12/05/24 ALEXIA-7 AMB Questionnaire ALEXIA-7 Date ALEXIA - 7 assessed: 12/05/24 Source: Developed by Drs. Patricio Andrews, Dana Young, Jaquan Brooks and colleagues, with an educational doris from [facility]. Review of Systems Const Details: - Respiratory: Reports cough with yellow sputum, mild shortness of breath; Denies fever - Neurological: Reports dizziness, fuzzy-headed feeling - Head and Neck: Denies sore throat, denies ear pain - Musculoskeletal: Denies body aches, reports arthritis pain - ENT: Reports nasal congestion Denies headache(s) and Reports other (Fuzzy headed feeling) Eyes Denies loss of vision ENT Denies vertigo, Reports dizziness, Denies otalgia, Denies headache(s), Reports nasal congestion, Denies sinus pressure and Denies sore throat Card Denies chest pain, Denies leg edema, Denies lightheadedness and Reports dyspnea on exertion (Mild) Resp Reports cough (Productive of yellowish secretion), Denies hemoptysis, Reports dyspnea on exertion (Mild) and Denies wheezing GI Denies abdominal pain, Denies melena, Denies constipation, Denies diarrhea and Denies vomiting Musc Denies myalgias (Chronic arthritis symptoms) Neuro Denies behavioral changes, Denies vertigo, Reports dizziness, Denies headache(s), Denies loss of vision and Denies memory loss Psych Denies anxiety, Denies behavioral changes, Denies depression, Denies memory loss and Denies panic attacks Aaron/Lymph Denies easy bleeding and Denies easy bruising Aller/Immun Denies wheezing Physical exam (Primary Care) Tobacco/Smoking Status: Tobacco use Status Tobacco use date assessed 12/05/24 04/05/25 16:13 Patient Tobacco Use Status Never used Tobacco 04/05/25 16:13 Tobacco use type Cigarette 04/05/25 16:13 e-Cigarette/Vaping Use Never Used 04/05/25 16:13 Thrive Assessment: Date of Thrive Assessment Date Thrive assessed 12/05/24 04/05/25 16:13 Const Other: Telemedicine visit with real time audio video Received verbal consent given by patient for today's visit via telemedicine Physical examination is not performed as visit / consultation today is done over videoconference - Telehealth visit All physical findings indicated here, if present, are as per patient's and / or caregivers / proxy's report and visual inspection over videoconference, if appropriate or applicable General: healthy appearing and no acute distress Telehealth Telehealth [facility]health [facility] Location of provider rendering services: practice address Location of patient: address on file Patient Identification confirmed using: Name, : Yes Telehealth method: video Patient verbally consented to treatment: Yes Patient verbally consented to billing insurance company: Yes Patient informed of any privacy concerns related to visit: Yes Coding Level of Care Code Est Pt Level 3 (03763) Diagnoses Rhinosinusitis J32.9 Time Spent (min) 29 Assessment & Plan Assessment & Plan (1) Rhinosinusitis: Code(s): J32.9 - Chronic sinusitis, unspecified Category: Medical Plan: Z-Shamir and prednisone 20 mg x 3 days ordered. Lifestyle modifications like smoking cessation. Wear a mask when around irritants, fumes, or particulate matter (e.g., painting, lawn mowing). Increase humidification at home, especially in the winter. Annual flu shots and the pneumonia shot can mitigate exacerbation. Increase fluids if not contraindicated because of heart failure. Medications: New azithromycin For 250 mg dose pack: take 500 mg today (day 1), then 250 mg for 4 days (days 2-5) PO 6 tabs 0RF prednisone 20 mg PO DAILY 3 tabs 0RF 3 days
== END 2025-04-05 18:05 | disposition home or self-care (01) ==
LOC: HO.HMCH 16:10
PROVIDERS: PCP Internal Medicine
DX: J32.9 Chronic sinusitis, unspecified (principal)

== ENCOUNTER → 2025-04-05 16:10 | Outpatient (BNVA) | payer MEDICARE, SELFPAY | PROVIDERS: PCP Internal Medicine | DX: J32.9 Chronic sinusitis, unspecified (principal) | CPT/HCPCS: 99212 ==

== ENCOUNTER 2025-06-03 06:03 | Outpatient (REF) | payer MEDICARE, SELFPAY ==
--- OUTSIDE RECORDS SUMMARY | 2025-06-03 06:07 | XMS_ITS | Patient Health Record ---
Author Organization [facility] Address [address] [place] [address] Care Team Providers Care Magazine Journalist Name Role Phone Jose Wilson MD Primary Care Provider Patricio Degroot [phone] Allergies Allergen (clinical drug ingredient) Drug/Non Drug Allergy documented on EMR Reaction Allergy Type Onset Date Status amoxicillin Amoxicillin Unknown Drug Allergy Act jose eduardo Reason For Referral No Information Medications Medication SIG (Take, Route, Frequency, Duration) Notes Start Date End Date Status ProAir HFA 108 (90 Base) MCG/ACT 1 puff as needed Inhalation every 4 hrs Active Multivitamin Adult - as directed Orally Active Losartan Potassium 100 MG TAKE 1 TABLET ONCE A DAY ORALLY 90 DAYS Oral for 90 Active Rosuvastatin Calcium 5 MG TAKE 1 TABLET BY MOUTH EVERY OTHER DAY Oral for 90 Active Aspirin Adult Low Dose 81 MG 1 tablet Orally Once a day for 30 day(s) Active Aleve 220 MG 1 tablet with food o r milk as needed Orally every 12 hrs Active Immunizations Vaccine Route Administration Date Status Comme nts Influenza Unknown 08/14/2019 Administered Social History Tobacco Use: Social History Observation Description Date Details (start date - stop date) Never Smoker NA - NA Tobacco Use/Smoking Question Answer Notes Patient is a nonsmoker Alcohol Screen Question Answer Notes Did you have a drink contain ing alcohol in the past year? Yes How often did you have a dri nk containing alcohol in the past year? 2 to 4 times a month (2 points) How many drinks did you have on a typical day when you were drinking in the past year? 1 or 2 drinks (0 point) Points 2 Interpretation Negative Section Notes: Nonsmoker; occasional beer Problems Problem Type SNOMED Code ICD Code Onset Dates Problem Status W/U Status Risk Notes Problem [id number] Encounter for screening for malignant neoplasm of colon (Z12.11) Active confirmed Problem [id number] Pre-procedural examination (Z01.818) Active confirmed Plan Of Treatment Future Test Test Name Order Date COLONOSCOPY 07/31/2020 Insurance Providers Payer Name Payer Address Payer Phone Subscriber Number Group Number Insured Name Patient Relationship to Insured Coverage Start Date Coverage End Date [facility] [address] [place] [phone] [id number] VELMA MONTILLA Self - patient is the insured Medical (General) History Medical History History ICD Code Mild asthma Hx of prostate cancer Neg colonoscopies in 2002 and 08/2010 HTN Hyperlipdiemia Denies [place],DM,CVA,renal disease Surgical History Surgery Date(Month/Year) 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 Gallardo Arthoscopic surgery left knee Rotator cuff tear repair Bilateral carpal tunnel
--- OUTSIDE RECORDS SUMMARY | 2025-06-03 06:07 | XMS_ITS | Clinical Summary ---
Author Organization [facility] Address [address] [place] [address] Phone Care Team Providers Care Global Compensation Analyst Name Role Phone Jose Wilson MD Primary Care Provider Social History Tobacco Use Types Packs/Day Years Used Date Smoking Tobacco: Never Assessed Education Answer Date Recorded Are you interested in more education? Not on arsenio e 07/04/2024 Are you concerned about learning? Not on file 07/04/2024 No 07/04/2024 No 07/04/2024 Digital Access Answer Date Recorded No 07/04/2024 No 07/04/2024 Reliable internet access at home? Not on file 07/04/2024 Device with a working camera? Not on file Sex and Gender Information Value Date Recorded Sex Assigned at Not on file Legal Sex Male 9:13 AM EDT Gender Identity Not on file Sexual Orientation Not on file Plan of Treatment Health Maintenance Due Date Last Done Comments Adult Td,Tdap Booster 1948 LIPID PANEL 1948 DEPRESSION SCREENING 1960 SMOKING Hx and SMOKELESS TOB ACCO SCREENING 1961 HEPATITIS C SCREENING 1966 PNEUMOCOCCAL VACCINES (50+ y ears) (1 of 1 - PCV) 1998 ZOSTER VACCINES (1 of 2) 1998 RSV VACCINE (1 - 1-dose 75+ series) 2023 COVID-19 VACCINE (2023-2 5 season) 2024 HEPATITIS A VACCINES Aged Out No long er eligible based on patient's age to complete this topic HIB VACCINES Aged Out No longer eligi ble based on patient's age to complete this topic MENINGOCOCCAL VACCINES (ACWY) Aged Out No longer eligible based on patient's age to complete this topic MENINGOCOCCAL VACCINES (B) Aged Out N o longer eligible based on patient's age to complete this topic Medical Devices Not on file Insurance [employer] MED[employer] HMO REPLACEMENT [facility] MEDICARE HMO REPLACEMENT [facility] MEDICARE HMO REPLACEMENT Care Teams Global Compensation Analyst Relationship Specialty Start Date End Date Jose Wilson MD [address] [place] [address] PCP - General Internal Medicine 07/03/24 Additional Source Comments The information contained in this document represents components of the legal health record. It is not the complete legal health record.[facility]
--- OUTSIDE RECORDS SUMMARY | 2025-06-03 06:07 | XMS_ITS | Encounter Summary ---
Author Organization [facility] Address [address] [place] [address] Care Team Providers Care Bay Stocker Name Role Phone Physician, Pcp Unknown Primary Care Provider Gerda vailable Encounter Details Date Type Department Care Team (Late st Contact Info) Description 12/28/2024 Lab Requisition [facility] - Main Lab [address] [facility] [place] [address] Wei Gallardo MD [address] [place] [address] Other microscopic hematuria Social History Tobacco Use [...] AM EST) Final Diagnosis A. Urine, Voided, ([id number]): Negative for high grade urothelial carcinoma. 01/02/2025 8:53 AM EST [facility] Gross Description A. Urine, Voided, ([id number]): Received one ThinPrep slide for cytology primary diagnosis. 01/02/2025 8:53 AM EST [facility] Disclaimer Unless otherwise specified, all tissue is 10% NB formalin fixed and paraffin embedded. Technical pathology services provided by [facility] at [address], [place] [address] (CLIA #[id number]/S tray Blanchard MD, Foster Care Therapist) 01/02/2025 8:53 AM EST [facility] Tissue Urine specimen from urethra / Unknown 12/26/2024 12/28/2024 8:29 AM EST us Wei Gallardo MD LAB PATHOLOGY ORDERABLES Fi nal Result [facility] [address] [place] [address], documented in this encounter Visit Diagnoses Diagnosis Other microscopic hematuria documented in this encounter Care Teams Bay Stocker Relationship Specialty Start Date End Date Physician, Pcp Unknown PCP - General 01/18/25 documented as of this encounter
[2025-06-03 06:15] LABS: MANUAL DIFF FLAG NO
[2025-06-03 07:34] LABS: Hematocrit 42.0 % (42.0-52.0); Hemoglobin 14.1 g/dl (14.0-18.0); Imm Gran Abs Auto 0.02 X10*3/uL (0.00-0.03); Imm Gran Pct Auto 0.3 % (0.0-0.4); Lymphocytes Absolute Auto 1.8 X10*3/uL (1.2-4.9); Mean Corpuscular HGB Conc 33.6 g/dl (31.0-36.0); Mean Corpuscular Hemoglobin 30.1 pg (27.0-33.0); Mean Corpuscular Volume 89.7 fL (80.0-98.0); NRBC Abs Auto 0.000 X10*3/uL (0.0-0.012); NRBC Pct Auto 0.0 /100WBC (0.0-0.2); Platelet Count 193 X10*3/uL (160-400); Red Blood Count 4.68 X10*6/uL (4.60-5.80); White Blood Count 5.7 X10*3/uL (4.8-10.8)
[2025-06-03 08:16] LABS: Hemoglobin A1C 145.1238 umol/L; Total Hemoglobin (HGBA1C) 3728.8767 umol/L
[2025-06-03 08:23] LABS: Alanine Aminotransferase 20 U/L (0-40); Albumin Level 4.2 g/dL (3.5-5.0); Alkaline Phosphatase 81 U/L (39-117); Anion Gap 11 (12-20); Aspartate Amino Transferase 21 U/L (5-37); Blood Urea Nitrogen 19 mg/dL (9-16); Calcium 9.4 mg/dL (8.4-10.2); Carbon Dioxide 27 mmol/L (22-29); Chloride 108 mmol/L (96-108); Cholesterol 164 mg/dL (<200); Estimated Glomerular Filt Rate > 60; HDL Cholesterol 44 mg/dL (>40); Potassium 4.9 mmol/L (3.3-5.1); Sodium 141 mmol/L (135-145); Total Protein 6.5 g/dL (6.5-8.0); Triglycerides 92 mg/dL (<150)
[2025-06-03 08:43] LABS: Free T4 (Free Thyroxine) 1.01 ng/dL (0.71-1.85); Thyroid Stimulating Hormone 4.65 uIU/mL (0.32-4.0)
[2025-06-03 08:51] LABS: Folate 12.0 ng/mL (> or = 4.0); Vitamin B12 717 pg/mL (200-900)
== END 2025-06-03 06:04 | disposition home or self-care (01) ==
LOC: HO.LAB 06:03
PROVIDERS: PCP Internal Medicine; Visit Provider Internal Medicine
DX: I10 Essential (primary) hypertension (principal); E78.00 Pure hypercholesterolemia, unspecified; Z12.5 Encounter for screening for malignant neoplasm of prostate; Z13.1 Encounter for screening for diabetes mellitus
CPT/HCPCS: 36415; 80053; 80061; 82607; 82746; 83036; 84153; 84439; 84443; 85025; 85652; 86140

== ENCOUNTER 2025-06-07 09:59 | Outpatient (AMB) | payer MEDICARE, SELFPAY ==
--- OUTSIDE RECORDS SUMMARY | 2025-06-07 10:14 | XMS_ITS | Encounter Summary ---
Author Organization [facility] Address [address] [place] [address] Care Team Providers Care Client Technical Specialist Name Role Phone Physician, Pcp Unknown Primary Care Provider Gerda vailable Encounter Details Date Type Department Care Team (Late st Contact Info) Description 12/28/2024 Lab Requisition [facility] - Main Lab [address] [facility] [place] [address] Wei Gallardo MD [address] [place] [address] Other microscopic hematuria Social History Tobacco Use [...] AM EST) Final Diagnosis A. Urine, Voided, ([id number]): Negative for high grade urothelial carcinoma. 01/02/2025 8:53 AM EST [facility] Gross Description A. Urine, Voided, ([id number]): Received one ThinPrep slide for cytology primary diagnosis. 01/02/2025 8:53 AM EST [facility] Disclaimer Unless otherwise specified, all tissue is 10% NB formalin fixed and paraffin embedded. Technical pathology services provided by [facility] at [address], [place] [address] (CLIA #[id number]/S tray Blanchard MD, Dough Molder) 01/02/2025 8:53 AM EST [facility] Tissue Urine specimen from urethra / Unknown 12/26/2024 12/28/2024 8:29 AM EST us Wei Gallardo MD LAB PATHOLOGY ORDERABLES Fi nal Result [facility] [address] [place] [address], documented in this encounter Visit Diagnoses Diagnosis Other microscopic hematuria documented in this encounter Care Teams Client Technical Specialist Relationship Specialty Start Date End Date Physician, Pcp Unknown PCP - General 01/18/25 documented as of this encounter
--- OUTSIDE RECORDS SUMMARY | 2025-06-07 10:14 | XMS_ITS | Clinical Summary ---
Author Organization [facility] Address [address] [place] [address] Phone Care Team Providers Care Print And Pattern Designer Name Role Phone Jose Wilson MD Primary Care Provider [phone] Social History Tobacco Use Types Packs/Day Years [...] Insurance [employer] MEDIC[employer] HMO REPLACEMENT [facility] MEDICARE HMO REPLACEMENT [facility] MEDICARE HMO REPLACEMENT Care Teams Print And Pattern Designer Relationship Specialty Start Date End Date Jose Wilson MD [address] [place] [address] PCP - General Internal Medicine 07/03/24 Additional Source Comments The information contained in this document represents components of the legal health record. It is not the complete legal health record.[facility]
--- OUTSIDE RECORDS SUMMARY | 2025-06-07 10:14 | XMS_ITS | Patient Health Record ---
Author Organization [facility] Address [address] [place] [address] Care Team Providers Care Mixer Tender Name Role Phone Jose Wilson MD Primary Care Provider Patricio Degroot [phone] Allergies Allergen (clinical drug ingredient) Drug/Non Drug [...] Problem Status W/U Status Risk Notes Problem [id number] Encounter for screening for malignant neoplasm of colon (Z12.11) Active confirmed Problem [id number] Pre-procedural examination (Z01.818) Active confirmed Plan Of Treatment Future Test Test Name Order Date COLONOSCOPY 07/31/2020 Insurance Providers Payer Name Payer Address Payer Phone Subscriber Number Group Number Insured Name Patient Relationship to Insured Coverage Start Date Coverage End Date [facility] [address] [place] [phone] [id number] VELMA MONTILLA Self - patient is the insured Medical (General) History Medical History History ICD Code Mild asthma Hx of prostate cancer Neg colonoscopies in 2002 and 08/2010 HTN Hyperlipdiemia Denies [place],DM,CVA,renal disease Surgical History Surgery Date(Month/Year) 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 Gallardo Arthoscopic surgery left knee Rotator cuff tear repair Bilateral carpal tunnel
--- NOTE | 2025-06-07 10:23 | MHC.PC.OV ---
Vital Signs 06/07/25 10:24 Height 5 ft 6 in Weight 197 lb BMI 31.8 BP 132/82 Blood Pressure Location Lt brachial Position Sitting Pulse 74 Pulse Source Pulse Oximeter Temp 97.3 F Temp Source Temporal Artery Scan Pulse Oximetry (%) 98 Oxygen Delivery Method Room Air Intake Visit Reasons: Annual Exam - see comments Intake Note: Patient is here today for a physical. Naturalization Examiner Required: No Drywall Worker: Not Required per policy Accompanied by: Self / Same As Patient Allergies amoxicillin (AMOXICILLIN) Allergy (Unknown, Verified 06/07/25 10:24) HIVES pravastatin Allergy (Unknown, Verified 06/07/25 10:24) Muscle Pain simvastatin Allergy (Unknown, Verified 06/07/25 10:24) Muscle Pain hay fever Allergy (Unknown, Uncoded 06/07/25 10:24) Sneezing Medication List - Last Reconciled 06/07/25 by Jose Wilson MD albuterol sulfate 90 mcg/actuation 2 puffs inhalation Q6H PRN aspirin (Adult Low Dose Aspirin) 81 mg PO DAILY diclofenac sodium 1% (Voltaren Arthritis Pain) 4 grams topical QID famotidine (Pepcid) 20 mg PO BEDTIME PRN fluticasone propion-salmeterol 250-50 mcg/dose (Wixela Inhub) 1 inh inhalation BID multivitamin 1 tab PO DAILY naproxen sodium (Aleve) 220 mg PO BID PRN rosuvastatin 5 mg PO Q OTHER DAY valsartan (Diovan) 160 mg PO DAILY 90 days Tobacco use date assessed: 12/05/24 Fall risk assessment: No Falls in past year Last assessed Fall Risk: 06/07/25 Dental Screening Dental Screen Date: 01/04/25 [facility] Medical History Nasal polyp Obesity (BMI 30-39.9) Carpal tunnel syndrome History of prostate cancer GERD (gastroesophageal reflux disease) Arthritis IBS (irritable bowel syndrome) BPH (benign prostatic hyperplasia) Asthma Elevated cholesterol Hypertension Surgical History Hx of shoulder surgery Hx of arthroscopic knee surgery History of prostatectomy S/P left knee arthroscopy History of colonoscopy History of incisional hernia repair Renal benign neoplasm Family History Father CAD (coronary artery disease) CVD (cardiovascular disease) Heart disease Mother Hypertension Brother CVD (cardiovascular disease) Myocardial infarction Social History (Updated 06/07/25 @ 11:19 by Jose Wilson MD) Housing: House Alcohol intake: current Alcohol intake frequency: holidays/special occasions only Comment: 2 x a week 2 vodka and tonic Patient Tobacco Use Status: Never used Tobacco Tobacco use type: Cigarette e-Cigarette/Vaping Use: Never Used Second Hand Smoke Exposure: No service: Yes Current occupational status: retired Cognitive needs: No Hearing needs: Yes Vision needs: Yes Questionnaire PHQ-9 Over the last 2 weeks, how often have you been bothered by any of the following problems? 1. Little interest or pleasure in doing things: not at all 2. Feeling down, depressed, or hopeless: not at all 3. Trouble falling or staying asleep, or sleeping too much: not at all 4. Feeling tired or having little energy: not at all 5. Poor appetite or overeating: several days 6. Feeling bad about yourself - or that you are a failure or have let yourself or your family down: not at all 7. Trouble concentrating on things, such as reading the newspaper or watching television: not at all 8. Moving or speaking so slowly that other people could have noticed. Or the opposite - being so fidgety or restless that you have been moving around a lot more than usual: not at all 9. Thoughts that you would be better off or of hurting yourself in some way: not at all Total score: 1 Depression Screening Interpretation: Positive Depression Screening Done: Yes Source: Developed by Drs. Patricio Andrews, Dana Young, Jaquan Brooks and colleagues, with an educational doris from [employer]. Thrive Questionnaire Date Thrive assessed: 06/07/25 I am a: Patient What is your living situation today?: I have a steady place to live Within the past 12 months, did the food you bought not last and you didn't have the money to get more?: Never true Within the past 12 months, did you worry whether your food would run out before you got money to buy more?: Never true Do you have trouble paying for medicines?: No Do you have trouble getting transportation to medical appointments?: No Do you have trouble paying your heating and electricity bill?: No Do you have trouble taking care of your child, family member or friend?: No Do you have trouble with day-to-day activities such as bathing, preparing meals, shopping, managing finances, etc.?: No Are you currently unemployed and looking for a job?: No Are you interested in more education?: I choose not to answer this question Please select the resources that you would like help with: None Currently or been in a relationship where the following occur: No concerns reported THRIVE Score: 0 AUDIT C Alcohol Use Questionnaire (AUDIT-C) 1. How often do you have a drink containing alcohol?: 2-3 times a week Total Score: 3 ALEXIA-7 AMB Questionnaire ALEXIA-7 Date ALEXIA - 7 assessed: 06/07/25 Feeling nervous, anxious, or on edge: 1 = Several days Not being able to stop or control worryin = Several days Worrying too much about different things: 1 = Several days Trouble relaxin = Not at all Being so restless that it is hard to sit still: 0 = Not at all Becoming easily annoyed or irritable: 1 = Several days Feeling afraid as if something awful might happen: 0 = Not at all Total ALEXIA-7 score (0-4 normal; 5-9 mild; 10-14 moderate; 15-21 severe): 4 Source: Developed by Drs. Patricio Andrews, Dana Young, Jaquan Brooks and colleagues, with an educational doris from [employer]. Review of Systems Const Denies poor appetite and Denies weakness Eyes Denies no additional complaints ENT Reports Normal hearing present, Denies dizziness, Denies nasal congestion, Denies tinnitus and Denies sore throat Card Denies chest pain, Denies syncope, Denies rapid heart rate and Denies dyspnea Resp Denies cough and Denies dyspnea GI Denies change in stool character, Reports constipation, Denies diarrhea, Denies nausea and Denies vomiting Denies dysuria and Denies urinary frequency Neuro Reports Normal hearing present, Denies confusion, Denies dizziness, Denies syncope and Denies weakness Psych Denies confusion Physical exam (Primary Care) Vital Signs: Last Vital Signs Temp 97.3 F 06/07/25 10:24 Pulse 74 06/07/25 10:24 BP 132/82 06/07/25 10:24 Pulse Ox 98 06/07/25 10:24 Oxygen Delivery Method Room Air 06/07/25 10:24 BMI result Body Mass Index 31.8 Tobacco/Smoking Status: Tobacco use Status Tobacco use date assessed 12/05/24 06/07/25 10:49 Patient Tobacco Use Status Never used Tobacco 06/07/25 11:19 Tobacco use type Cigarette 06/07/25 11:19 e-Cigarette/Vaping Use Never Used 06/07/25 11:19 PHQ-9: PHQ-9 Score PHQ-9: Total score 1 06/07/25 11:14 Depression Screening Interpretation: Positive Thrive Assessment: Date of Thrive Assessment Date Thrive assessed 06/07/25 06/07/25 10:49 Currently or been in a relationship where the following occur: No concerns reported Const General: alert and awake; No confusion Orientation/consciousness: No confusion HENMT Head: Yes normocephalic Ears: external ears normal and TM's normal bilaterally Face and sinus: Yes normal facial exam Mouth: moist mucous membranes Throat: Yes tonsils normal Eyes Conjunctivae: conjunctivae normal Pupils: Equal, round and reactive pupils present and Pupil accommodation reflex normal Direct Ophthalmoscopy: normal light reflex Neck Neck: No lymphadenopathy Thyroid: Thyroid normal Chest Chest palpation & inspection: normal inspection of the chest Resp Effort & Inspection: normal respiratory effort and no audible wheezes Auscultation: clear to auscultation bilaterally, no crackles, no wheezes and lung sounds not diminished Cardio Rate: regular rate Rhythm: regular rhythm Peripheral pulses: radial pulses present and dorsalis pedis present GI Other: guaiac negative, no prostate Palpation (GI): no masses Auscultation: normal bowel sounds and normoactive bowel sounds Male General Exam: Yes normal external exam Skin General skin exam: no rashes or lesions noted Rashes: no rashes Neuro General: deep tendon reflexes 2+ bilaterally and No confusion Cranial nerves: Yes Equal, round and reactive pupils present, Yes Midline tongue present, Yes Normal hearing present and Yes Ability to bilaterally elevate shoulders present Cognition (Neuro): normal cognition Gait exam (Neuro): Normal gait present Motor exam (neuro): 5/5 motor strength present throughout Deep tendon reflexes (DTR's): Right brachioradialis reflex intensity grade: 2+, Left brachioradialis reflex intensity grade: 2+, Right patellar reflex intensity grade: 2+ and Left patellar reflex intensity grade: 2+ Extrem General: No edema Coding Level of Care Code Est Pt Prev Care >65y(72049) Diagnoses Annual physical exam Z00.00 Asthma J45.909 History of prostate cancer Z85.46 Gastroesophageal reflux disease without esophagitis K21.9 Esophagitis presence: without esophagitis Impaired glucose tolerance R73.02 Essential hypertension I10 Hypertension type: essential hypertension Elevated cholesterol E78.00 Overweight (BMI 25.0-29.9) E66.3 Assessment & Plan Assessment & Plan (1) Annual physical exam: Code(s): Z00.00 - Encounter for general adult medical examination without abnormal findings Category: Medical Plan: Patient is advised to eat healthy, keep well hydrated, keep active and have adequate sleep. (2) Asthma: Code(s): J45.909 - Unspecified asthma, uncomplicated Category: Medical Plan: Continue with albuterol inhaler as needed (3) History of prostate cancer: Comment: Dr. Gallardo 2016 robotic prostatectomy Code(s): Z85.46 - Personal history of malignant neoplasm of prostate Category: Medical Plan: Patient follows up with urology and was advised cytology and if negative no more follow-ups. (4) GERD (gastroesophageal reflux disease): Code(s): K21.9 - Gastro-esophageal reflux disease without esophagitis Category: Medical Qualifiers: Esophagitis presence: without esophagitis Qualified Code(s): K21.9 - Gastro-esophageal reflux disease without esophagitis Plan: Avoid the foods that causes that usually spicy foods, tomato products, juices, coffee, soda and foods that your sensitive to. After eating do not lie down, allow 3-4 hours before in lie down. And keep the head of bed above 30 degrees to avoid the acid from going up. (5) Impaired glucose tolerance: Code(s): R73.02 - Impaired glucose tolerance (oral) Category: Medical Plan: Decrease the amount of carbohydrate intake, pasta, bread, rice and potatoes are all sugar and that is aside from all the sweet stuff, remember that fruits are good but they are Sweet also. (6) Hypertension: Code(s): I10 - Essential (primary) hypertension Category: Medical Qualifiers: Hypertension type: essential hypertension Qualified Code(s): I10 - Essential (primary) hypertension Plan: Continue with blood pressure medication. Decrease salt intake and exercise patient on valsartan only (7) Elevated cholesterol: Code(s): E78.00 - Pure hypercholesterolemia, unspecified Category: Medical Plan: Avoid fried foods, chicken skin, eggs, butter margarine, pastries and meat. Be it pork or beef they have a lot of cholesterol LDL goal of less than 130 and triglyceride of less than 150 on rosuvastatin (8) Overweight (BMI 25.0-29.9): Code(s): E66.3 - Overweight Category: Medical Plan: Diet and exercise Plan History of Present Illness The patient is a 75-year-old male presenting for a physical examination and management of chronic conditions. The patient has a history of obesity, with a recent weight loss of 4 pounds noted. He has been managing hypercholesterolemia with rosuvastatin, although he experiences muscle aches as a side effect. His LDL cholesterol is currently at 102 mg/dL, which is below the target of 130 mg/dL. Hypertension is being managed with valsartan, and his blood pressure is reported to be well-controlled. The patient also has a history of gastroesophageal reflux disease, for which he uses famotidine as needed. The patient has impaired glucose tolerance, with a fasting blood sugar of 114 mg/dL and a hemoglobin A1c of 5.7%. He has been advised to monitor carbohydrate intake and increase physical activity to prevent progression to diabetes. In 2015, the patient was diagnosed with prostate cancer and underwent prostatectomy. He is currently under surveillance with no detectable prostate-specific antigen (PSA) levels. A recent follow-up with urology included a urine cytology test, and if negative, no further follow-up is required. The patient has a history of asthma, managed with albuterol and Wixela inhalers as needed. He reports using the inhalers more frequently following a COVID-19 infection earlier in the year. The patient was treated for sinusitis in March and has a history of allergies, with elevated eosinophil levels noted in recent blood work. He has been advised to manage allergies to prevent exacerbation of asthma symptoms. Thyroid function tests showed mildly elevated levels, and a follow-up test is planned in three months. The patient has been informed that thyroid levels can fluctuate due to various factors, including illness. Health Maintenance - Vaccinations: Up to date with shingles, tetanus, and pneumonia vaccines - Screening: Regular follow-up with urology for prostate cancer surveillance - Lifestyle: Advised to monitor carbohydrate intake and increase physical activity to manage glucose levels - Thyroid: Follow-up test planned in three months due to mildly elevated levels Social History - Alcohol: Consumes alcohol a couple of times a week, prefers vodka over beer due to bloating - Smoking: Denies smoking history - Recreational Drugs: Denies use of recreational drugs - Exercise: Engages in regular physical activity, advised to increase exercise to manage weight and glucose levels Review of Systems - General: Denies fever, night sweats, or weight gain - Cardiovascular: Denies chest pain, palpitations, or syncope - Respiratory: Reports occasional dyspnea, denies persistent cough or wheezing - Gastrointestinal: Denies nausea, vomiting, or dysphagia - Neurological: Denies dizziness or syncope - Genitourinary: Denies dysuria, reports nocturia 1-2 times per night Physical Exam General: Cooperative, healthy appearing, comfortable, no acute distress and well developed Orientation: Patient oriented x3 Limitations: No limitations Head: Normal to inspection Ears: Hearing grossly normal bilaterally, some ear wax present but not obstructive Nose: Normal external nose present Face and sinus: Normal facial exam, history of sinusitis noted Eyes: Appearance normal, both eyes and all related structures Neck: Normal visual inspection and Yes full ROM Respiratory: Normal respiratory effort and able to speak in complete sentences. Clear to auscultation bilaterally Cardiovascular: Regular rate and rhythm. Normal S1 and S2 GI: Normal to inspection. Soft to palpation and nontender Skin: No rashes or lesions noted Neuro: Patient oriented x3 Extremities: Normal to inspection Results - Labs: Normal blood count, normal electrolytes, normal renal function, elevated blood sugar, hemoglobin A1c of 5.7%, LDL cholesterol of 102 mg/dL, undetectable PSA, mildly elevated thyroid levels - Tests: Urine cytology for prostate cancer follow-up Plan The patient will continue with current management for hypercholesterolemia using rosuvastatin, despite experiencing muscle aches, as his LDL cholesterol is within target range. Hypertension management with valsartan will be maintained, given the well-controlled blood pressure readings. For impaired glucose tolerance, the patient is advised to monitor carbohydrate intake and increase physical activity to prevent progression to diabetes. The patient will continue using albuterol and Wixela inhalers for asthma management, with a refill provided for the inhalers. He is advised to manage allergies to prevent exacerbation of asthma symptoms, given the elevated eosinophil levels. A follow-up with urology is planned, with a urine cytology test to determine the need for further surveillance for prostate cancer. Thyroid function will be re-evaluated in three months due to mildly elevated levels, with no immediate intervention required. Patient was informed and verbally consented to the use of an ambient scribe for clinic note documentation during this visit. Discussion Notes During the visit, I discussed the management of the patient's chronic conditions, including hypercholesterolemia, hypertension, and impaired glucose tolerance. We reviewed the importance of maintaining a healthy lifestyle, including diet and exercise, to manage these conditions effectively. I also addressed the patient's asthma management, emphasizing the need for regular use of inhalers and allergy management to prevent exacerbations. The patient was informed about the follow-up plan for prostate cancer surveillance and the need for a repeat thyroid function test in three months. Patient Instructions - Continue taking rosuvastatin as prescribed, despite muscle aches. - Maintain valsartan for blood pressure control. - Monitor carbohydrate intake and increase physical activity to manage glucose levels. - Use albuterol and Wixela inhalers as needed for asthma, and ensure refills are up to date. - Manage allergies to prevent asthma exacerbations. - Follow up with urology for prostate cancer surveillance as advised. - Schedule a thyroid function test in three months. Orders: Orders Hemoglobin A1c 3 Months R73.02 - Impaired glucose tolerance (oral) Free T4 (Free Thyroxine) 3 Months R73.02 - Impaired glucose tolerance (oral) Comprehensive Met. Panel 3 Months R73.02 - Impaired glucose tolerance (oral) Thyroid Stimulating Hormone 3 Months R73.02 - Impaired glucose tolerance (oral) Medications: New fluticasone propion-salmeterol 250-50 mcg/dose (Wixela Inhub) 1 inh inhalation BID 60 ea 3RF J45.909 - Unspecified asthma, uncomplicated Refilled albuterol sulfate 90 mcg/actuation 2 puffs inhalation Q6H PRN 8.5 ea 0RF for wheezing J45.909 - Unspecified asthma, uncomplicated
[2025-06-07 10:24] VITALS: BP 132/82; PULSE 74; TEMP 36.3; O2SAT 98; BMI 31.8
== END 2025-06-07 11:36 | disposition home or self-care (01) ==
LOC: HO.HMCH 10:00
PROVIDERS: PCP Internal Medicine; Visit Provider Internal Medicine
DX: Z00.00 Encounter for general adult medical examination without abnormal findings (principal); J45.909 Unspecified asthma, uncomplicated; Z85.46 Personal history of malignant neoplasm of prostate; K21.9 Gastro-esophageal reflux disease without esophagitis; R73.02 Impaired glucose tolerance (oral); I10 Essential (primary) hypertension; E78.00 Pure hypercholesterolemia, unspecified; E66.3 Overweight

== ENCOUNTER → 2025-06-07 09:59 | Outpatient (BNVA) | payer MEDICARE, SELFPAY | PROVIDERS: PCP Internal Medicine; Visit Provider Internal Medicine | DX: Z00.00 Encounter for general adult medical examination without abnormal findings (principal); J45.909 Unspecified asthma, uncomplicated; K21.9 Gastro-esophageal reflux disease without esophagitis; R73.02 Impaired glucose tolerance (oral); I10 Essential (primary) hypertension; E78.00 Pure hypercholesterolemia, unspecified; E66.3 Overweight; Z85.46 Personal history of malignant neoplasm of prostate; Z79.899 Other long term (current) drug therapy | CPT/HCPCS: 96127; 99397 ==

== ENCOUNTER 2025-06-26 20:49 | Emergency (ER) | payer MEDICARE, SELFPAY ==
--- NOTE | ~2025-06-26 | CT_ITS ---
CLINICAL HISTORY: ?sbo CT abdomen and pelvis with contrast Comparison: None provided Findings: Nonspecific peripherally calcified fluid and soft tissue density structure posterior to the right kidney measuring 3.7 cm. Bilateral peripelvic renal cysts. No hydronephrosis or hydroureter. Ureters and urinary bladder normal. Prostate unremarkable. No significant abnormality of the stomach or bowel. Moderate colonic fecal loading. Multiple hepatic cysts. Otherwise normal liver, spleen, gallbladder, and pancreas. No adrenal gland nodule or mass. No abdominal aortic aneurysm. Bones intact. IMPRESSION: 1. No acute finding. 2. Nonspecific peripherally calcified structure posterior to the right kidney. Correlation with any previous outside studies would be recommended, as this would obviate the need for further evaluation via renal protocol MRI of the abdomen. This document has been electronically signed by: Edwin De Los Santos MD on 06/27/2025 01:27:48
--- NOTE | 2025-06-26 20:51 | ECG_ITS ---
Test Reason : CHEST PAIN Blood Pressure : */* mmHG Vent. Rate : 86 BPM Atrial Rate : 86 BPM P-R Int : 132 ms QRS Dur : 84 ms QT Int : 350 ms P-R-T Axes : 26 29 26 degrees QTcB Int : 418 ms Normal sinus rhythm with sinus arrhythmia Normal ECG When compared with ECG of 30-Aug-2016 10:35, No significant change was found Referred By: Stephanie Chiang Electronically Signed By: Damian Terry
[2025-06-26 21:04] VITALS: BP 140/67; PULSE 88; RESP 20; TEMP 35.2; O2SAT 98; BMI 29.3
[2025-06-26 21:31] LABS: MANUAL DIFF FLAG NO
[2025-06-26 21:33] LABS: Hematocrit 40.5 % (42.0-52.0); Hemoglobin 14.2 g/dl (14.0-18.0); Imm Gran Abs Auto 0.02 X10*3/uL (0.00-0.03); Imm Gran Pct Auto 0.3 % (0.0-0.4); Lymphocytes Absolute Auto 1.9 X10*3/uL (1.2-4.9); Mean Corpuscular HGB Conc 35.1 g/dl (31.0-36.0); Mean Corpuscular Hemoglobin 31.0 pg (27.0-33.0); Mean Corpuscular Volume 88.4 fL (80.0-98.0); NRBC Abs Auto 0.000 X10*3/uL (0.0-0.012); NRBC Pct Auto 0.0 /100WBC (0.0-0.2); Platelet Count 188 X10*3/uL (160-400); Red Blood Count 4.58 X10*6/uL (4.60-5.80); White Blood Count 7.2 X10*3/uL (4.8-10.8)
[2025-06-26 21:39] LABS: INTERNATIONAL NORM RATIO 0.9 (0.9-1.1); Prothrombin Time 10.5 SEC (10.9-12.4)
[2025-06-26 21:47] LABS: Alanine Aminotransferase 53 U/L (0-40); Albumin Level 4.1 g/dL (3.5-5.0); Alkaline Phosphatase 100 U/L (39-117); Anion Gap 13 (12-20); Aspartate Amino Transferase 92 U/L (5-37); Blood Urea Nitrogen 26 mg/dL (9-16); Calcium 9.5 mg/dL (8.4-10.2); Carbon Dioxide 24 mmol/L (22-29); Chloride 109 mmol/L (96-108); Creatinine Clr Calc Pharmacy 59.4; Estimated Glomerular Filt Rate > 60; Lipase 25 U/L (8-78); Potassium 4.0 mmol/L (3.3-5.1); Sodium 142 mmol/L (135-145); Total Protein 6.5 g/dL (6.5-8.0)
[2025-06-26 21:54] LABS: Troponin-I High Sensitivity 8.4 ng/L (<3.5-35.0)
--- OUTSIDE RECORDS SUMMARY | 2025-06-26 22:52 | XMS_ITS | Patient Health Record ---
Author Organization [facility] Address [address] [place] [address] Care Team Providers Care Wet Process Operator Name Role Phone Jose Wilson MD Primary Care Provider Patricio Degroot [phone] Allergies Allergen (clinical drug ingredient) Drug/Non Drug [...] Problem Status W/U Status Risk Notes Problem [id number] Encounter for screening for malignant neoplasm of colon (Z12.11) Active confirmed Problem [id number] Pre-procedural examination (Z01.818) Active confirmed Plan Of Treatment Future Test Test Name Order Date COLONOSCOPY 07/31/2020 Insurance Providers Payer Name Payer Address Payer Phone Subscriber Number Group Number Insured Name Patient Relationship to Insured Coverage Start Date Coverage End Date [facility] [address] [place] [phone] [id number] VELMA MONTILLA Self - patient is the insured Medical (General) History Medical History History ICD Code Mild asthma Hx of prostate cancer Neg colonoscopies in 2002 and 08/2010 HTN Hyperlipdiemia Denies [place],DM,CVA,renal disease Surgical History Surgery Date(Month/Year) 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 Gallardo Arthoscopic surgery left knee Rotator cuff tear repair Bilateral carpal tunnel
--- OUTSIDE RECORDS SUMMARY | 2025-06-26 22:52 | XMS_ITS | Encounter Summary ---
Author Organization [facility] Address [address] [place] [address] Care Team Providers Care Chemical Laboratory Chief Name Role Phone Physician, Pcp Unknown Primary Care Provider Gerda vailable Encounter Details Date Type Department Care Team (Late st Contact Info) Description 12/28/[address] [facility] [address] [facility] [place] [address] Wei Gallardo MD [address] [place] [address] Other microscopic hematuria Social History Tobacco Use [...] AM EST) Final Diagnosis A. Urine, Voided, ([id number]): Negative for high grade urothelial carcinoma. 01/02/2025 8:53 AM EST [facility] Gross Description A. Urine, Voided, ([id number]): Received one ThinPrep slide for cytology primary diagnosis. 01/02/2025 8:53 AM EST [facility] Disclaimer Unless otherwise specified, all tissue is 10% NB formalin fixed and paraffin embedded. Technical pathology services provided by [facility] at [address], [place] [address] (CLIA #[id number] tray Blanchard MD, Surgical Consultant) 01/02/2025 8:53 AM EST [facility] Tissue Urine specimen from urethra / Unknown 12/26/2024 12/28/2024 8:29 AM EST us Wei Gallardo MD LAB PATHOLOGY ORDERABLES Fi nal Result [facility] [address] [place] [address], documented in this encounter Visit Diagnoses Diagnosis Other microscopic hematuria documented in this encounter Care Teams Chemical Laboratory Chief Relationship Specialty Start Date End Date Physician, Pcp Unknown PCP - General 01/18/25 documented as of this encounter
--- OUTSIDE RECORDS SUMMARY | 2025-06-26 22:52 | XMS_ITS | Clinical Summary ---
Author Organization [facility] Address [address] [place] [id number] Phone Care Team Providers Care Corporate Secretary Name Role Phone Jose Wilson MD Primary Care Provider [phone] Social History Tobacco Use Types Packs/Day Years [...] Insurance [employer] HMO REPLACEMENT [facility] MEDICARE HMO REPLACEMENT [facility] MEDICARE HMO REPLACEMENT Care Teams Corporate Secretary Relationship Specialty Start Date End Date Jose Wilson MD [address] [place] [address] PCP - General Internal Medicine 07/03/24 Additional Source Comments The information contained in this document represents components of the legal health record. It is not the complete legal health record.[facility]
[2025-06-26 23:35] VITALS: BP 138/76; PULSE 78; RESP 17; TEMP 36.6; O2SAT 98
--- NOTE | 2025-06-26 23:38 | PC.NURSE ---
a&ox4. vss and up to date. nsr on the manager monitoring. pt presents to [facility] ED w/ family c/o nonradiating epigastric pain w/ associated nausea and 1 episode of vomiting s/p eating chicken parm for dinner. pt reports taking dose of rx famotidine w/o relief. hx GERD. ekg/labs previously drawn in triage. 20gIV placed in the right AC - labs obtained/sent to lab. pt on RA w/o difficulty. no sob/wob noted. respirations even/unlabored. plan of care ongoing. call olmedo placed within reach.
--- NOTE | 2025-06-26 23:55 | ED_ITS ---
HPI - Abdominal Pain General Chief Complaint: Abdominal Pain Stated Complaint: chest/upper abd pain Time Seen by Provider: 06/26/25 23:55 Source: patient Mode of arrival: ambulatory Limitations: no limitations History of Present Illness ED Provider: HPI narrative: PATIENT WITH HX NO SIGNIFICANT GI COMPLAINTS IN THE PAST DOES HAVE HISTORY OF PROSTATE CANCER IN REMISSION AND HYPERTENSION NOTICED SINCE 20:00 ABDOMINAL FULLNESS AND EPIGASTRIC PAIN WITH NAUSEA FEELS ABDOMINAL DISTENDED NOT PASSING ANY GAS SINCE PAIN STARTED NO HISTORY OF SIMILAR PAIN IN THE PAST NO HISTORY OF BOWEL OBSTRUCTION PATIENT DOES HAVE HISTORY OF RIGHT RENAL CANCER WITH CALCIFICATION Related Data Home Medications ?Medication ?Instructions ?Recorded ?Confirmed aspirin 81 mg tablet,delayed 81 mg PO DAILY 09/23/20 0 06/07/25 release (Adult Low Dose Aspirin) naproxen sodium 220 mg tablet 220 mg PO BID PRN 06/07/25 (Aleve) multivitamin 1 tab PO DAILY 02/28/2305/15 famotidine 20 mg tablet (Pepcid) 20 mg PO BEDTIME PRN gerd 06/04/24 06/07/25 Previous Rx's ?Medication ?Instructions ?Recorded diclofenac sodium 1 % topical gel 4 g topical QID #400 grams 12/05/24 (Voltaren Arthritis Pain) rosuvastatin 5 mg tablet 5 mg PO Q OTHER DAY #45 tabs 01/03/25 valsartan 160 mg tablet (Diovan) 160 mg PO DAILY 90 da ys #90 tabs 01/03/25 albuterol sulfate 90 mcg/actuation 2 puff inhalation Q 6H PRN for 06/07/25 aerosol inhaler wheezing #8.5 ea fluticasone 250 mcg-salmeterol 50 1 inh inhalation BID #60 ea 06/07/25 mcg/dose blistr powdr for inhalation (Wixela Inhub) pantoprazole 40 mg tablet,delayed 40 mg PO DAILY #30 t abs 06/27/25 release (Protonix) Allergies Allergy/AdvReac Type Severity Reaction Status Date / Time amoxicillin (AMOXICILLIN) Allergy Unknown HIVES Verified 06/26/25 21:08 pravastatin Allergy Unknown Muscle Pain Verified 06/26/25 21:08 simvastatin Allergy Unknown Muscle Pain Verified 06/26/25 21:08 hay fever Allergy Unknown Sneezing Uncoded 06/07/25 10:24 [facility] Past Medical History Medical History Nasal polyp Obesity (BMI 30-39.9) Carpal tunnel syndrome History of prostate cancer GERD (gastroesophageal reflux disease) Arthritis IBS (irritable bowel syndrome) BPH (benign prostatic hyperplasia) Asthma Elevated cholesterol Hypertension Surgical History Hx of shoulder surgery Hx of arthroscopic knee surgery History of prostatectomy S/P left knee arthroscopy History of colonoscopy History of incisional hernia repair Renal benign neoplasm Family History Family History Father CAD (coronary artery disease) CVD (cardiovascular disease) Heart disease Mother Hypertension Brother CVD (cardiovascular disease) Myocardial infarction Social History Social History (Updated 06/07/25 @ 11:19 by Jose Wilson MD) Housing: House Alcohol intake: current Alcohol intake frequency: holidays/special occasions only Comment: 2 x a week 2 vodka and tonic Patient Tobacco Use Status: Never used Tobacco Tobacco use type: Cigarette Smoked in Last 30 Days: No e-Cigarette/Vaping Use: Never Used Second Hand Smoke Exposure: No Use of substances other than those prescribed or required for medical reasons: No Advance Directives: No Advance Directives Information Provided: Yes Do you have a plan to hurt others: No Plan service: Yes Current occupational status: retired Cognitive needs: No Hearing needs: Yes Vision needs: Yes Physical Exam ED Vital Signs: Vital Signs - 24 hr 06/26/25 21:04 06/26/25 23:35 Temperature 95.3 F L 97.8 F Pulse Rate 88 78 Respiratory Rate 20 17 Blood Pressure 140/67 H 138/76 Pulse Oximetry 98 98 Oxygen Delivery Method Room Air Room Air BMI result Body Mass Index 29.3 Medical Decision Making Medical Decision Making MDM Narrative: Patient nonspecific abdominal pain CT scan negative for acute will discharge patient home on PPI PATIENT IS FEELING MUCH BETTER DURING STAY IN THE ER TAKING P.O. FLUIDS WILL DISCHARGE PATIENT HOME Differential Diagnosis Differential Diagnoses: The differential diagnosis associated with the presentation includes Acute gastritis/small bowel obstruction /pancreatitis/aortic aneurysm/ACS/acute abdomen/volvulus Admission/Observation Consideration of admission/observation: Escalation of care including admission/observation considered Lab Data [facility] Lab Attestation statement: I reviewed the patient's lab results. 06/26/25 21:25 06/26/25 21:25 Labs: Lab Results 06/26/25 06/26/25 06/27/25 Range/Units 21:25 23:36 00:26 WBC 7.2 (4.8-10.8) X10*3/uL RBC 4.58 L (4.60-5.80) X10*6/uL Hgb 14.2 (14.0-18.0) g/dl Hct 40.5 L (42.0-52.0) % MCV 88.4 (80.0-98.0) fL MCH 31.0 (27.0-33.0) pg MCHC 35.1 (31.0-36.0) g/dl RDW 12.8 (11.0-16.0) % Plt Count 188 (160-400) X10*3/uL MPV 10.0 (9.4-12.4) fL Immature Gran % (Auto) 0.3 (0.0-0.4) % Neut % (Auto) 59.0 (45-73) % Lymph % (Auto) 26.5 (20-40) % Garfield % (Auto) 8.5 (2-11) % Eos % (Auto) 5.0 H (0-4) % Baso % (Auto) 0.7 (0-2) % Lymph # (Auto) 1.9 (1.2-4.9) X10*3/uL Garfield # (Auto) 0.6 (0.1-1.2) X10*3/uL Eos # (Auto) 0.4 (0.0-0.4) X10*3/uL Baso # (Auto) 0.1 (0.0-0.2) X10*3/uL Abs Immat Gran (auto) 0.02 (0.00-0.03) X10*3/uL Absolute Neuts (auto) 4.2 (2.0-8.3) x10*3/uL Absolute Nucleated RBC 0.000 (0.0-0.012) X10*3/uL Nucleated RBC % (auto) 0.0 (0.0-0.2) /100WBC PT 10.5 L (10.9-12.4) SEC INR 0.9 (0.9-1.1) Sodium 142 (135-145) mmol/L Potassium 4.0 (3.3-5.1) mmol/L Chloride 109 H (96-108) mmol/L Carbon Dioxide 24 (22-29) mmol/L Anion Gap 13 (12-20) BUN 26 H (9-16) mg/dL Creatinine 1.12 (0.5-1.4) mg/dL Estim Creat Clear Calc 59.4 Estimated GFR > 60 Random Glucose 131 H (60-115) mg/dL Lactic Acid 1.0 (0.5-2.0) mmol/L Calcium 9.5 (8.4-10.2) mg/dL Total Bilirubin 1.0 (0.0-1.0) mg/dL AST 92 H (5-37) U/L ALT 53 H (0-40) U/L Alkaline Phosphatase 100 (39-117) U/L Troponin I High Sens 8.4 10.5 (<3.5-35.0) ng/L Total Protein 6.5 (6.5-8.0) g/dL Albumin 4.1 (3.5-5.0) g/dL Lipase 25 (8-78) U/L Urine Color Urine Appearance Urine pH (5.0-9.0) Ur Specific [place] (1.005-1.025) Urine Protein (Neg-Trace) mg/dL Urine Glucose (UA) (Negative) mg/dL Urine Ketones (Negative) mg/dL Urine Blood (Negative) Urine Nitrite (Negative) Ur Leukocyte Esterase (Negative) 06/27/25 Range/Units 02:05 WBC (4.8-10.8) X10*3/uL RBC (4.60-5.80) X10*6/uL Hgb (14.0-18.0) g/dl Hct (42.0-52.0) % MCV (80.0-98.0) fL MCH (27.0-33.0) pg MCHC (31.0-36.0) g/dl RDW (11.0-16.0) % Plt Count (160-400) X10*3/uL MPV (9.4-12.4) fL Immature Gran % (Auto) (0.0-0.4) % Neut % (Auto) (45-73) % Lymph % (Auto) (20-40) % Garfield % (Auto) (2-11) % Eos % (Auto) (0-4) % Baso % (Auto) (0-2) % Lymph # (Auto) (1.2-4.9) X10*3/uL Garfield # (Auto) (0.1-1.2) X10*3/uL Eos # (Auto) (0.0-0.4) X10*3/uL Baso # (Auto) (0.0-0.2) X10*3/uL Abs Immat Gran (auto) (0.00-0.03) X10*3/uL Absolute Neuts (auto) (2.0-8.3) x10*3/uL Absolute Nucleated RBC (0.0-0.012) X10*3/uL Nucleated RBC % (auto) (0.0-0.2) /100WBC PT (10.9-12.4) SEC INR (0.9-1.1) Sodium (135-145) mmol/L Potassium (3.3-5.1) mmol/L Chloride (96-108) mmol/L Carbon Dioxide (22-29) mmol/L Anion Gap (12-20) BUN (9-16) mg/dL Creatinine (0.5-1.4) mg/dL Estim Creat Clear Calc Estimated GFR Random Glucose (60-115) mg/dL Lactic Acid (0.5-2.0) mmol/L Calcium (8.4-10.2) mg/dL Total Bilirubin (0.0-1.0) mg/dL AST (5-37) U/L ALT (0-40) U/L Alkaline Phosphatase (39-117) U/L Troponin I High Sens (<3.5-35.0) ng/L Total Protein (6.5-8.0) g/dL Albumin (3.5-5.0) g/dL Lipase (8-78) U/L Urine Color Yellow Urine Appearance Clear Urine pH 5.5 (5.0-9.0) Ur Specific [place] >= 1.030 H (1.005-1.025) Urine Protein Negative (Neg-Trace) mg/dL Urine Glucose (UA) Negative (Negative) mg/dL Urine Ketones Negative (Negative) mg/dL Urine Blood Negative (Negative) Urine Nitrite Negative (Negative) Ur Leukocyte Esterase Negative (Negative) Independent Interpretation I performed an independent interpretation of an: EKG and CT Scan Interpretation: Normal sinus rhythm heart rate 86 beats per minute normal interval normal axis no acute ST-T no acute ischemia Radiology Impression Discussion of test interpretation with radiology: I have reviewed the radiologist's reading. Radiologist Impression: MPRESSION: 1. No acute finding. 2. Nonspecific peripherally calcified structure posterior to the right kidney. Correlation with any previous outside studies would be recommended, as this would obviate the need for further evaluation via renal protocol MRI of the abdomen. This document has been electronically signed by: Edwin De Los Santos MD on 06/27/2025 01:27:48 Medications Administered Discontinued Medications Generic Name Dose Route Start Last Admin Trade Name Freq PRN Reason Stop Dose Admin Famotidine 20 mg 06/27/25 02:12 06/27/25 02:19 Famotidine/Pf 20 Mg/2 Ml Vial IVPUSH 06/27/25 02:13 20 mg ONCE ONE Administration Sodium Chloride 1,000 mls @ 999 mls/hr 06/27/25 00:04 06/27/25 01:18 Ns IV 06/27/25 01:04 Infused .Q1H1M ONE Infusion Iohexol 85 ml 06/27/25 00:38 06/27/25 00:41 Iohexol 350 Mg/Ml 100 Ml Infus..Btl IV 06/27/25 00:39 85 ml ONCE ONE Administration Morphine Sulfate 4 mg 06/27/25 00:09 06/27/25 00:16 Morphine Sulfate 4 Mg/Ml Cartridge IVPUSH 06/27/25 00:10 4 mg ONCE ONE Administration Protocol Ondansetron HCl 4 mg 06/27/25 00:09 06/27/25 00:16 Ondansetron Hcl 4 Mg/2 Ml Vial IVPUSH 06/27/25 00:10 4 mg ONCE ONE Administration Discharge Plan Discharge Clinical Impression: Abdominal pain GERD (gastroesophageal reflux disease) Qualifiers: Esophagitis presence: without esophagitis Qualified Code(s): K21.9 - Gastro- esophageal reflux disease without esophagitis Patient Disposition: Home, Self-Care Instructions: GERD (Gastroesophageal Reflux Disease) (ED), Abdominal Pain (ED) Additional Instructions: Cause of your abdominal pain is not clear likely you have GERD as the cause Start taking Protonix daily avoid fried food follow up with your PCP if not better Prescriptions: New pantoprazole [Protonix] 40 mg tablet,delayed release (DR/EC) 40 mg PO DAILY Qty: 30 0RF No Action rosuvastatin 5 mg tablet 5 mg PO Q OTHER DAY Qty: 45 3RF valsartan [Diovan] 160 mg tablet 160 mg PO DAILY 90 Days Qty: 90 2RF aspirin [Adult Low Dose Aspirin] 81 mg tablet,delayed release (DR/EC) 81 mg PO DAILY naproxen sodium [Aleve] 220 mg tablet 220 mg PO BID PRN multivitamin Tablet 1 tab PO DAILY famotidine [Pepcid] 20 mg tablet 20 mg PO BEDTIME PRN (Reason: gerd) diclofenac sodium [Voltaren Arthritis Pain] 1 % gel 4 g topical QID Qty: 400 10RF Rx Instructions: apply to single knee, ankle, foot; for foot includes sole/toes/top of foot albuterol sulfate 90 mcg/actuation HFA aerosol inhaler 2 puff inhalation Q6H PRN (Reason: for wheezing) Qty: 8.5 0RF fluticasone propion-salmeterol [Wixela Inhub] 250-50 mcg/dose blister with device 1 inh inhalation BID Qty: 60 3RF Print Language: Mozambican
[2025-06-27 00:11] LABS: Troponin-I High Sensitivity 10.5 ng/L (<3.5-35.0)
--- NOTE | 2025-06-27 00:26 | PC.NURSE ---
labs obtained/sent to lab by [facility]. IVF/medication administered per provider order. effectiveness pending. pt waiting for CT to be completed. family remains bedside for support. plan of care ongoing. call olmedo placed within reach.
[2025-06-27] MEDS: iohexoL 350 MG/ML 100 ML INFUS..BTL 85 ML IV (00:41)
[2025-06-27 02:12] LABS: Appearance Urine Clear; Glucose Urine UA Negative (Negative); PH 5.5 (5.0-9.0); Specific Gravity - Urine >= 1.030 (1.005-1.025)
[2025-06-27 02:20] VITALS: BP 128/62; PULSE 71; RESP 17; TEMP 36.6; O2SAT 97
[2025-06-27 02:28] VITALS: BP 128/62; PULSE 71; RESP 17; TEMP 36.6; O2SAT 97
== END 2025-06-27 02:28 | disposition home or self-care (01) ==
PROVIDERS: Registered Nurse Emergency; Emergency Provider Internal Medicine; PCP Internal Medicine
DX: K21.9 Gastro-esophageal reflux disease without esophagitis (principal); R07.89 Other chest pain; R10.2 Pelvic and perineal pain; R11.0 Nausea; Z79.899 Other long term (current) drug therapy
CPT/HCPCS: 36415; 74177; 80053; 81001; 83605; 83690; 84484; 85025; 85610; 93005; 96361; 96374; 96375; 99284; 99285; J1308; J2270; J2405; Q9967

== ENCOUNTER → 2025-06-26 20:51 | Outpatient (BNV) | payer MEDICARE, SELFPAY | PROVIDERS: Emergency Provider Internal Medicine; PCP Internal Medicine; Visit Provider Internal Medicine Cardiovascular Disease | DX: R07.9 Chest pain, unspecified (principal) | CPT/HCPCS: 93010 ==

== ENCOUNTER → 2025-06-27 00:05 | Outpatient (BNV) | payer MEDICARE, SELFPAY | PROVIDERS: Emergency Provider Internal Medicine; PCP Internal Medicine; Visit Provider Radiology Diagnostic Radiology | DX: R10.13 Epigastric pain (principal) | CPT/HCPCS: 74177 ==

== ENCOUNTER 2025-06-28 10:39 | Outpatient (REF) | payer MEDICARE, SELFPAY ==
[2025-06-28 14:18] LABS: Chlamydia pneumoniae PCR Not Detected (Not Detect.); Coronavirus 229E PCR Not Detected (Not Detect.); Coronavirus HKU1 PCR Not Detected (Not Detect.); Coronavirus NL63 PCR Not Detected (Not Detect.); Coronavirus OC43 PCR Not Detected (Not Detect.); RSV PCR Not Detected (Not Detect.); Rhino/Enterovirus PCR Not Detected (Not Detect.)
[2025-06-28 14:31] LABS: Influenza A H1 PCR Not Detected (Not Detect.); Influenza A H1-2009 PCR Not Detected (Not Detect.); Influenza A H3 PCR Not Detected (Not Detect.); SARS-CoV-2 PCR Not Detected (Not Detect.)
== END 2025-06-28 10:40 | disposition home or self-care (01) ==
LOC: HO.LAB 10:39
PROVIDERS: Physician Assistant; PCP Internal Medicine
DX: B34.9 Viral infection, unspecified (principal); J06.9 Acute upper respiratory infection, unspecified; R50.9 Fever, unspecified; R51.9 Headache, unspecified; H53.8 Other visual disturbances; R14.0 Abdominal distension (gaseous); R10.9 Unspecified abdominal pain
CPT/HCPCS: 87633; 99212

== ENCOUNTER 2025-06-28 10:39 | Outpatient (AMB) | payer MEDICARE, SELFPAY ==
--- OUTSIDE RECORDS SUMMARY | 2025-06-28 10:43 | XMS_ITS | Encounter Summary ---
Author Organization [facility] Address [address] [place] [address] Care Team Providers Care Professor Of Marketing Name Role Phone Physician, Pcp Unknown Primary Care Provider Gerda vailable Encounter Details Date Type Department Care Team (Late st Contact Info) Description 12/28/2024 Lab Requisition [facility] - Main Lab [address] [facility] [place] [address] Wei Gallardo MD [address] [place] [address] Other microscopic hematuria Social History Tobacco Use [...] AM EST) Final Diagnosis A. Urine, Voided, ([id number]): Negative for high grade urothelial carcinoma. 01/02/2025 8:53 AM EST [facility] Gross Description A. Urine, Voided, ([id number]): Received one ThinPrep slide for cytology primary diagnosis. 01/02/2025 8:53 AM EST [facility] Disclaimer Unless otherwise specified, all tissue is 10% NB formalin fixed and paraffin embedded. Technical pathology services provided by [facility] at [address], [place] [address] (CLIA #[id number] tray Blanchard MD, Children'S Literature Professor) 01/02/2025 8:53 AM EST [facility] Tissue Urine specimen from urethra / Unknown 12/26/2024 12/28/2024 8:29 AM EST us Wei Gallardo MD LAB PATHOLOGY ORDERABLES Fi nal Result [facility] [address] [place] [address], documented in this encounter Visit Diagnoses Diagnosis Other microscopic hematuria documented in this encounter Care Teams Professor Of Marketing Relationship Specialty Start Date End Date Physician, Pcp Unknown PCP - General 01/18/25 documented as of this encounter
--- OUTSIDE RECORDS SUMMARY | 2025-06-28 10:43 | XMS_ITS | Patient Health Record ---
Author Organization [facility] Address [address] [place] [address] Care Team Providers Care Slot Floor Supervisor Name Role Phone Jose Wilson MD Primary Care Provider Patricio Degroot [phone] Allergies Allergen (clinical drug ingredient) Drug/Non Drug [...] Problem Status W/U Status Risk Notes Problem [id number] Encounter for screening for malignant neoplasm of colon (Z12.11) Active confirmed Problem [id number] Pre-procedural examination (Z01.818) Active confirmed Plan Of Treatment Future Test Test Name Order Date COLONOSCOPY 07/31/2020 Insurance Providers Payer Name Payer Address Payer Phone Subscriber Number Group Number Insured Name Patient Relationship to Insured Coverage Start Date Coverage End Date [facility] [address] [place] [phone] [id number] VELMA MONTILLA Self - patient is the insured Medical (General) History Medical History History ICD Code Mild asthma Hx of prostate cancer Neg colonoscopies in 2002 and 08/2010 HTN Hyperlipdiemia Denies [place],DM,CVA,renal disease Surgical History Surgery Date(Month/Year) 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 Gallardo Arthoscopic surgery left knee Rotator cuff tear repair Bilateral carpal tunnel
--- OUTSIDE RECORDS SUMMARY | 2025-06-28 10:43 | XMS_ITS | Clinical Summary ---
Author Organization [facility] Address [address] [place] [id number] Phone Care Team Providers Care Production Truck Driver Name Role Phone Jose Wilson MD Primary [...] Insurance [employer] HMO REPLACEMENT [facility] MEDICARE HMO REPLACEMENT [facility] MEDICARE HMO REPLACEMENT Care Teams Production Truck Driver Relationship Specialty Start Date End Date Jose Wilson MD [address] [place] [address] PCP - General Internal Medicine 07/03/24 Additional Source Comments The information contained in this document represents components of the legal health record. It is not the complete legal health record.[facility]
[2025-06-28 11:14] VITALS: BP 120/64; PULSE 100; TEMP 37.1; O2SAT 95; BMI 29.3
--- NOTE | 2025-06-28 11:14 | MHC.OFFWIV ---
Intake Vital Signs 06/28/25 11:14 Height 5 ft 8 in Weight 193 lb BMI 29.3 BP 120/64 Blood Pressure Location Rt brachial Position Sitting Pulse 100 Pulse Source Pulse Oximeter Temp 98.8 F Temp Source Oral Pulse Oximetry (%) 95 Oxygen Delivery Method Room Air Intake Visit Reasons: EP chills, fever, elevated HR, aches, headaches Intake Note: pt presents with body chills, fever at home, elevated HR, headaches, foggy, blurry vision. [place] [facility] [place] - CT scan done. Patient Tobacco Use Status: Never used Tobacco Allergies amoxicillin (AMOXICILLIN) Allergy (Unknown, Verified 06/28/25 11:17) HIVES pravastatin Allergy (Unknown, Verified 06/28/25 11:17) Muscle Pain simvastatin Allergy (Unknown, Verified 06/28/25 11:17) Muscle Pain hay fever Allergy (Unknown, Uncoded 06/07/25 10:24) Sneezing Do you need a note to return to daycare/school/sports/work: No HPI HPI Comments History of Present Illness Details History of Present Illness - The patient is a 75-year-old male presenting with abdominal pain and distension, fevers and chills. - The patient experienced severe abdominal pain with sudden onset, accompanied by vomiting of undigested food two days prior to the visit. - The patient visited the ER where vital signs were normal, labs were normal except for elevated liver enzymes. - A CT scan with contrast was performed, showing no acute findings, but moderate colonic fecal loading was noted. - The patient was treated with morphine, Zofran, and famotidine, and advised to follow up with Dr. Wilson, he has an appt on 07/02 - The patient took pantoprazole yesterday, which was RX'd by the ER, which resulted in headache and muscle aches. - The patient reported chills, body aches, and a fever of 101.5?F last night - The patient has not been eating and drinking normally, it is reduced but he has been sipping on gatorade and had some soup today. - The patient has a history of impaired glucose tolerance, with a recent glucose level of 133 mg/dL. - He took motrin today - He has no respiratory complaints, no chest pain, cough or trouble breathing. Physical Exam General: Cooperative, healthy appearing, comfortable, no acute distress and well developed Orientation: Patient oriented x3 Limitations: No limitations Head: Normal to inspection Ears: Hearing grossly normal bilaterally Nose: Normal External nose present Face and sinus: Normal facial exam Eyes: Appearance normal, both eyes and all related structures Neck: Normal visual inspection and Yes full ROM Respiratory: Normal respiratory effort and able to speak in complete sentences. GI: obese, soft, negative zhang's, no TTP but slight uncomfortableness throughout with deep palpation Skin: No rashes or lesions noted Neuro: Patient oriented x3, negative Brudzinskis Extremities: Normal to inspection [facility] Medical History Nasal polyp Obesity (BMI 30-39.9) Carpal tunnel syndrome History of prostate cancer GERD (gastroesophageal reflux disease) Arthritis IBS (irritable bowel syndrome) BPH (benign prostatic hyperplasia) Asthma Elevated cholesterol Hypertension Surgical History Hx of shoulder surgery Hx of arthroscopic knee surgery History of prostatectomy S/P left knee arthroscopy History of colonoscopy History of incisional hernia repair Renal benign neoplasm Family History Father CAD (coronary artery disease) CVD (cardiovascular disease) Heart disease Mother Hypertension Brother CVD (cardiovascular disease) Myocardial infarction Social History (Updated 06/07/25 @ 11:19 by Jose Wilson MD) Housing: House Alcohol intake: current Alcohol intake frequency: holidays/special occasions only Comment: 2 x a week 2 vodka and tonic Patient Tobacco Use Status: Never used Tobacco Tobacco use type: Cigarette e-Cigarette/Vaping Use: Never Used Second Hand Smoke Exposure: No service: Yes Current occupational status: retired Cognitive needs: No Hearing needs: Yes Vision needs: Yes Review of Systems Const All systems reviewed & are unremarkable except as noted in HPI and below Physical Exam Vital Signs: Last Vital Signs Temp 98.8 F 06/28/25 11:14 Pulse 100 06/28/25 11:14 BP 120/64 06/28/25 11:14 Pulse Ox 95 06/28/25 11:14 Oxygen Delivery Method Room Air 06/28/25 11:14 BMI result Body Mass Index 29.3 Assessment & Plan Assessment & Plan (1) Viral illness: Code(s): B34.9 - Viral infection, unspecified Plan: Plan - VSS, pt has the chills but is afebrile, exam is unremarkable. - Recommend the use of a gentle laxative, such as Dulcolax, to alleviate constipation. - Suggest monitoring symptoms and hydration status, with instructions to seek ER care if symptoms worsen or dehydration occurs. - Messaged his PCP to see if he wants to order abd US investigate elevated liver enzymes further however pt is seeing him on 07/02 - Advise rest and hydration, with Tylenol for fever management. - Conducted a full viral respiratory panel to rule out respiratory viral infection, possible Covid. Patient was informed and verbally consented to the use of an ambient scribe for clinic note documentation during this visit. Orders: Orders Resp Pathogen Panel [place] [facility] Today J06.9 - Acute upper respiratory infection, unspecified Coding Level of Care Code Est Pt Level 3 (06848) Diagnoses Viral illness B34.9
== END 2025-06-28 12:27 | disposition home or self-care (01) ==
PROVIDERS: PCP Internal Medicine; Visit Provider Physician Assistant
DX: B34.9 Viral infection, unspecified (principal)

== ENCOUNTER 2025-07-02 12:11 | Outpatient (AMB) | payer MEDICARE, SELFPAY ==
[2025-07-02 12:22] VITALS: BP 128/72; PULSE 93; O2SAT 94; BMI 29.5
--- NOTE | 2025-07-02 12:22 | A.OFFPC_ITS ---
Vital Signs 07/02/25 12:22 Height 5 ft 8 in Weight 194 lb BMI 29.5 BP 128/72 Blood Pressure Location Lt brachial Position Sitting Pulse 93 Pulse Source Pulse Oximeter Pulse Oximetry (%) 94 Oxygen Delivery Method Room Air Intake [place] [facility] [place] chest/abdominal pain Allergies amoxicillin (AMOXICILLIN) Allergy (Unknown, Verified 07/02/25 12:22) HIVES pravastatin Allergy (Unknown, Verified 07/02/25 12:22) Muscle Pain simvastatin Allergy (Unknown, Verified 07/02/25 12:22) Muscle Pain hay fever Allergy (Unknown, Uncoded 07/02/25 12:22) Sneezing Medication List - Last Reconciled 07/02/25 by Jose Wilson MD acetaminophen ER (Tylenol Arthritis Pain) 650 mg PO Q12H albuterol sulfate 90 mcg/actuation 2 puffs inhalation Q6H PRN aspirin (Adult Low Dose Aspirin) 81 mg PO DAILY calcium carbonate (Tums) 200 mg PO BID diclofenac sodium 1% (Voltaren Arthritis Pain) 4 grams topical QID famotidine (Pepcid) 20 mg PO BEDTIME PRN fluticasone propion-salmeterol 250-50 mcg/dose (Wixela Inhub) 1 inh inhalation BID multivitamin 1 tab PO DAILY naproxen sodium (Aleve) 220 mg PO BID PRN rosuvastatin 5 mg PO Q OTHER DAY simethicone (Mylanta Gas) 125 mg PO TID PRN valsartan (Diovan) 160 mg PO DAILY 90 days Tobacco use date assessed: 12/05/24 Fall risk assessment: No Falls in past year Last assessed Fall Risk: 07/02/25 Dental Screening Dental Screen Date: 01/04/25 [facility] Medical History Nasal polyp Obesity (BMI 30-39.9) Carpal tunnel syndrome History of prostate cancer GERD (gastroesophageal reflux disease) Arthritis IBS (irritable bowel syndrome) BPH (benign prostatic hyperplasia) Asthma Elevated cholesterol Hypertension Surgical History Hx of shoulder surgery Hx of arthroscopic knee surgery History of prostatectomy S/P left knee arthroscopy History of colonoscopy History of incisional hernia repair Renal benign neoplasm Family History Father CAD (coronary artery disease) CVD (cardiovascular disease) Heart disease Mother Hypertension Brother CVD (cardiovascular disease) Myocardial infarction Social History (Updated 06/07/25 @ 11:19 by Jose Wilson MD) Housing: House Alcohol intake: current Alcohol intake frequency: holidays/special occasions only Comment: 2 x a week 2 vodka and tonic Patient Tobacco Use Status: Never used Tobacco Tobacco use type: Cigarette e-Cigarette/Vaping Use: Never Used Second Hand Smoke Exposure: No service: Yes Current occupational status: retired Cognitive needs: No Hearing needs: Yes Vision needs: Yes Questionnaire PHQ-9 Over the last 2 weeks, how often have you been bothered by any of the following problems? 1. Little interest or pleasure in doing things: not at all 2. Feeling down, depressed, or hopeless: not at all 3. Trouble falling or staying asleep, or sleeping too much: not at all 4. Feeling tired or having little energy: not at all 5. Poor appetite or overeating: several days 6. Feeling bad about yourself - or that you are a failure or have let yourself or your family down: not at all 7. Trouble concentrating on things, such as reading the newspaper or watching television: not at all 8. Moving or speaking so slowly that other people could have noticed. Or the opposite - being so fidgety or restless that you have been moving around a lot more than usual: not at all 9. Thoughts that you would be better off or of hurting yourself in some way: not at all Total score: 1 Depression Screening Interpretation: Positive Depression Screening Done: Yes Source: Developed by Drs. Patricio Andrews, Dana Young, Jaquan Brooks and colleagues, with an educational doris from [employer]. Thrive Questionnaire Date Thrive assessed: 06/07/25 I am a: Patient What is your living situation today?: I have a steady place to live Within the past 12 months, did the food you bought not last and you didn't have the money to get more?: Never true Within the past 12 months, did you worry whether your food would run out before you got money to buy more?: Never true Do you have trouble paying for medicines?: No Do you have trouble getting transportation to medical appointments?: No Do you have trouble paying your heating and electricity bill?: No Do you have trouble taking care of your child, family member or friend?: No Do you have trouble with day-to-day activities such as bathing, preparing meals, shopping, managing finances, etc.?: No Are you currently unemployed and looking for a job?: No Are you interested in more education?: I choose not to answer this question Please select the resources that you would like help with: None Currently or been in a relationship where the following occur: No concerns reported THRIVE Score: 0 AUDIT C Alcohol Use Questionnaire (AUDIT-C) 1. How often do you have a drink containing alcohol?: 2-3 times a week Total Score: 3 ALEXIA-7 AMB Questionnaire ALEXIA-7 Date ALEXIA - 7 assessed: 06/07/25 Source: Developed by Drs. Patricio Andrews, Dana Young, Jaquan Brooks and colleagues, with an educational doris from [employer]. Physical exam (Primary Care) Vital Signs: Last Vital Signs Pulse 93 07/02/25 12:22 BP 128/72 07/02/25 12:22 Pulse Ox 94 07/02/25 12:22 Oxygen Delivery Method Room Air 07/02/25 12:22 BMI result Body Mass Index 29.5 Tobacco/Smoking Status: Tobacco use Status Tobacco use date assessed 12/05/24 07/02/25 12:23 Patient Tobacco Use Status Never used Tobacco 07/02/25 12:23 Tobacco use type Cigarette 07/02/25 12:23 e-Cigarette/Vaping Use Never Used 07/02/25 12:23 PHQ-9: PHQ-9 Score PHQ-9: Total score 1 07/02/25 12:37 Depression Screening Interpretation: Positive Thrive Assessment: Date of Thrive Assessment Date Thrive assessed 06/07/25 07/02/25 12:23 Currently or been in a relationship where the following occur: No concerns reported Const General: alert; No acute distress Eyes Conjunctivae: conjunctivae normal Resp Auscultation: clear to auscultation bilaterally Cardio Rate: regular rate Rhythm: regular rhythm GI Inspection: Yes normal to inspection Extrem General: Yes normal to inspection and No edema Coding Level of Care Code Est Pt Level 4 (62502) Complex EM visit Add On G2211 Diagnoses LFT elevation R79.89 Essential hypertension I10 Hypertension type: essential hypertension Elevated cholesterol E78.00 Impaired glucose tolerance R73.02 Overweight (BMI 25.0-29.9) E66.3 Gastroesophageal reflux disease without esophagitis K21.9 Esophagitis presence: without esophagitis Asthma J45.909 Assessment & Plan Assessment & Plan (1) LFT elevation: Code(s): R79.89 - Other specified abnormal findings of blood chemistry Category: Medical Plan: Will further investigate. (2) Hypertension: Code(s): I10 - Essential (primary) hypertension Category: Medical Qualifiers: Hypertension type: essential hypertension Qualified Code(s): I10 - Essential (primary) hypertension Plan: Continue with blood pressure medication. Decrease salt intake and exercise on valsartan 160 mg once a day (3) Elevated cholesterol: Code(s): E78.00 - Pure hypercholesterolemia, unspecified Category: Medical Plan: Avoid fried foods, chicken skin, eggs, butter margarine, pastries and meat. Be it pork or beef they have a lot of cholesterol LDL goal of less than 130 and triglyceride of less than 150 on rosuvastatin 05/2025 last testing (4) Impaired glucose tolerance: Code(s): R73.02 - Impaired glucose tolerance (oral) Category: Medical Plan: Decrease the amount of carbohydrate intake, pasta, bread, rice and potatoes are all sugar and that is aside from all the sweet stuff, remember that fruits are good but they are Sweet also. (5) Overweight (BMI 25.0-29.9): Code(s): E66.3 - Overweight Category: Medical Plan: Diet and exercise (6) GERD (gastroesophageal reflux disease): Code(s): K21.9 - Gastro-esophageal reflux disease without esophagitis Category: Medical Qualifiers: Esophagitis presence: without esophagitis Qualified Code(s): K21.9 - Gastro-esophageal reflux disease without esophagitis Plan: Reflux the (7) Asthma: Code(s): J45.909 - Unspecified asthma, uncomplicated Category: Medical Plan: Patient on Wixela and albuterol Plan History of Present Illness The patient is a 75-year-old male presenting for a follow-up visit after being last seen on June 07 for a physical exam. The patient has a history of hypercholesterolemia, gastroesophageal reflux d isease, hypertension, impaired glucose tolerance, and prostate cancer diagnosed in 2015. He visited an urgent care center on June 28 for symptoms of chills, fever, and headaches, which were diagnosed as a viral illness. On June 26, the patient had an emergency room visit due to abdominal pain. A CT scan of the abdomen was performed, which showed nonspecific findings with no acute issues. Blood work done on the same day revealed normal blood count, stable renal function, elevated liver function tests, and a blood sugar level of 131 mg/dL. [employer] History Review of Systems - General: Reports chills, fever, and headaches. - Gastrointestinal: Reports abdominal pain. Physical Exam Results - Labs: Normal blood count, stable renal function, elevated liver function tests, blood sugar level of 131 mg/dL. - Imaging: CT scan of the abdomen showed nonspecific findings with no acute issues. Plan The patient will continue with current management for hypercholesterolemia, hypertension, and impaired glucose tolerance. Blood pressure is managed with valsartan 160 mg once daily, and cholesterol levels are controlled with rosuvastatin, aiming for LDL cholesterol less than 130 mg/dL and triglycerides less than 150 mg/dL. The patient is advised to maintain a diet and exercise regimen to manage impaired glucose tolerance. Further investigation into the elevated liver function tests will be conducted. Patient was informed and verbally consented to the use of an ambient scribe for clinic note documentation during this visit. Discussion Notes Patient Instructions Orders: Orders US abdomen complete Today R79.89 - Other specified abnormal findings of blood chemistry Comprehensive Met. Panel Today R79.89 - Other specified abnormal findings of blood chemistry Medications: Refilled rosuvastatin 5 mg PO Q OTHER DAY 45 tabs 3RF
--- OUTSIDE RECORDS SUMMARY | 2025-07-02 13:34 | XMS_ITS | Clinical Summary ---
Author Organization [facility] Address [address] [place] [address] Phone Care Team Providers Care Wire Charger Name Role Phone Jose Wilson MD Primary Care Provider [phone] Social History Tobacco Use Types Packs/Day Years [...] Insurance [employer] HMO REPLACEMENT [facility] MEDICARE HMO REPLACEMENT [facility] MEDICARE HMO REPLACEMENT Care Teams Wire Charger Relationship Specialty Start Date End Date Jose Wilson MD [address] [place] [address] PCP - General Internal Medicine 07/03/24 Additional Source Comments The information contained in this document represents components of the legal health record. It is not the complete legal health record.[facility]
--- OUTSIDE RECORDS SUMMARY | 2025-07-02 13:34 | XMS_ITS | Patient Health Record ---
Author Organization [facility] Address [address] [place] [address] Care Team Providers Care Single Needle Tufting Machine Operator Name Role Phone Jose Wilson MD Primary Care Provider Patricio Degroot [phone] Allergies Allergen (clinical drug ingredient) Drug/Non Drug [...] Problem Status W/U Status Risk Notes Problem [id number] Encounter for screening for malignant neoplasm of colon (Z12.11) Active confirmed Problem [id number] Pre-procedural examination (Z01.818) Active confirmed Plan Of Treatment Future Test Test Name Order Date COLONOSCOPY 07/31/2020 Insurance Providers Payer Name Payer Address Payer Phone Subscriber Number Group Number Insured Name Patient Relationship to Insured Coverage Start Date Coverage End Date [facility] [address] [place] [phone] [id number] VELMA MONTILLA Self - patient is the insured Medical (General) History Medical History History ICD Code Mild asthma Hx of prostate cancer Neg colonoscopies in 2002 and 08/2010 HTN Hyperlipdiemia Denies [place],DM,CVA,renal disease Surgical History Surgery Date(Month/Year) 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 Gallardo Arthoscopic surgery left knee Rotator cuff tear repair Bilateral carpal tunnel
--- OUTSIDE RECORDS SUMMARY | 2025-07-02 13:34 | XMS_ITS | Encounter Summary ---
Author Organization [facility] Address [address] [place] [address] Care Team Providers Care Biomedical Equipment Specialist Name Role Phone Physician, Pcp Unknown Primary Care Provider Gerda vailable Encounter Details Date Type Department Care Team (Late st Contact Info) Description 12/28/2024 Lab Requisition [facility] - Main Lab [address] [facility] [place] [address] Wei Gallardo MD [address] [place] [address] Other microscopic hematuria Social History Tobacco Use [...] AM EST) Final Diagnosis A. Urine, Voided, ([id number]): Negative for high grade urothelial carcinoma. 01/02/2025 8:53 AM EST [facility] Gross Description A. Urine, Voided, ([id number]): Received one ThinPrep slide for cytology primary diagnosis. 01/02/2025 8:53 AM EST [facility] Disclaimer Unless otherwise specified, all tissue is 10% NB formalin fixed and paraffin embedded. Technical pathology services provided by [facility] at [address], [place] [address] (CLIA #[id number]/S tray Blanchard MD, Fire Sprinkler Service Technician) 01/02/2025 8:53 AM EST [facility] Tissue Urine specimen from urethra / Unknown 12/26/2024 12/28/2024 8:29 AM EST us Wei Gallardo MD LAB PATHOLOGY ORDERABLES Fi nal Result [facility] [address] [place] [address], documented in this encounter Visit Diagnoses Diagnosis Other microscopic hematuria documented in this encounter Care Teams Biomedical Equipment Specialist Relationship Specialty Start Date End Date Physician, Pcp Unknown PCP - General 01/18/25 documented as of this encounter
== END 2025-07-02 12:57 | disposition home or self-care (01) ==
PROVIDERS: PCP Internal Medicine; Visit Provider Internal Medicine
DX: R79.89 Other specified abnormal findings of blood chemistry (principal); I10 Essential (primary) hypertension; E78.00 Pure hypercholesterolemia, unspecified; R73.02 Impaired glucose tolerance (oral); E66.3 Overweight; K21.9 Gastro-esophageal reflux disease without esophagitis; J45.909 Unspecified asthma, uncomplicated

== ENCOUNTER → 2025-07-02 12:11 | Outpatient (BNVA) | payer MEDICARE, SELFPAY | PROVIDERS: PCP Internal Medicine; Visit Provider Internal Medicine | DX: I10 Essential (primary) hypertension (principal); R79.89 Other specified abnormal findings of blood chemistry; E78.00 Pure hypercholesterolemia, unspecified; R73.02 Impaired glucose tolerance (oral); E66.3 Overweight; K21.9 Gastro-esophageal reflux disease without esophagitis; J45.909 Unspecified asthma, uncomplicated | CPT/HCPCS: 96127; 99212 ==

== ENCOUNTER 2025-07-04 06:03 | Outpatient (REF) | payer MEDICARE, SELFPAY ==
--- OUTSIDE RECORDS SUMMARY | 2025-07-04 06:06 | XMS_ITS | Patient Health Record ---
Author Organization [facility] Address [address] [place] [address] Care Team Providers Care Manager Retention Name Role Phone Jose Wilson MD Primary Care Provider Patricio Degroot [phone] Allergies Allergen (clinical drug ingredient) Drug/Non Drug [...] Problem Status W/U Status Risk Notes Problem [id number] Encounter for screening for malignant neoplasm of colon (Z12.11) Active confirmed Problem [id number] Pre-procedural examination (Z01.818) Active confirmed Plan Of Treatment Future Test Test Name Order Date COLONOSCOPY 07/31/2020 Insurance Providers Payer Name Payer Address Payer Phone Subscriber Number Group Number Insured Name Patient Relationship to Insured Coverage Start Date Coverage End Date [facility] [address] [place] [phone] [id number] VELMA MONTILLA Self - patient is the insured Medical (General) History Medical History History ICD Code Mild asthma Hx of prostate cancer Neg colonoscopies in 2002 and 08/2010 HTN Hyperlipdiemia Denies [place],DM,CVA,renal disease Surgical History Surgery Date(Month/Year) 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 Gallardo Arthoscopic surgery left knee Rotator cuff tear repair Bilateral carpal tunnel
--- OUTSIDE RECORDS SUMMARY | 2025-07-04 06:06 | XMS_ITS | Encounter Summary ---
Author Organization [facility] Address [address] [place] [address] Care Team Providers Care Brake Operator Name Role Phone Physician, Pcp Unknown Primary Care Provider Gerda vailable Encounter Details Date Type Department Care Team (Late st Contact Info) Description 12/28/2024 Lab Requisition [facility] - Main Lab [address] [facility] [place] [address] Wei Gallardo MD [address] [place] [address] Other microscopic hematuria Social History Tobacco Use [...] AM EST) Final Diagnosis A. Urine, Voided, ([id number]): Negative for high grade urothelial carcinoma. 01/02/2025 8:53 AM EST [facility] Gross Description A. Urine, Voided, ([id number]): Received one ThinPrep slide for cytology primary diagnosis. 01/02/2025 8:53 AM EST [facility] Disclaimer Unless otherwise specified, all tissue is 10% NB formalin fixed and paraffin embedded. Technical pathology services provided by [facility] at [address], [place] [address] (CLIA #[id number]/S tray Blanchard MD, Skirt Trimmer) 01/02/2025 8:53 AM EST [facility] Tissue Urine specimen from urethra / Unknown 12/26/2024 12/28/2024 8:29 AM EST us Wei Gallardo MD LAB PATHOLOGY ORDERABLES Fi nal Result [facility] [address] [place] [address], documented in this encounter Visit Diagnoses Diagnosis Other microscopic hematuria documented in this encounter Care Teams Brake Operator Relationship Specialty Start Date End Date Physician, Pcp Unknown PCP - General 01/18/25 documented as of this encounter
[2025-07-04 07:49] LABS: Alanine Aminotransferase 151 U/L (0-40); Albumin Level 3.6 g/dL (3.5-5.0); Alkaline Phosphatase 197 U/L (39-117); Anion Gap 14 (12-20); Aspartate Amino Transferase 31 U/L (5-37); Blood Urea Nitrogen 14 mg/dL (9-16); Calcium 9.1 mg/dL (8.4-10.2); Carbon Dioxide 27 mmol/L (22-29); Chloride 104 mmol/L (96-108); Estimated Glomerular Filt Rate > 60; Potassium 4.1 mmol/L (3.3-5.1); Sodium 141 mmol/L (135-145); Total Protein 6.3 g/dL (6.5-8.0)
[2025-07-04 08:31] LABS: HBS Num1 0.95 mIU/mL (0-7.99); HBc Num1 0.06 S/CO (0.00-0.79); HBsAGNum1 0.49 S/CO (0.00-0.99); Hepatitis B Surface Antigen Negative (Negative); ~HepC Num1 0.11 S/CO (0.00-0.79); ~Hepatitis B Surface Antibody NONREACTIVE (Nonreactive); ~Hepatitis C Antibody Nonreactive (Nonreactive)
== END 2025-07-04 06:04 | disposition home or self-care (01) ==
LOC: HO.LAB 06:03
PROVIDERS: PCP Internal Medicine; Visit Provider Internal Medicine
DX: R79.89 Other specified abnormal findings of blood chemistry (principal); B34.9 Viral infection, unspecified
CPT/HCPCS: 36415; 80053; 86704; 86706; 86803; 87340

== ENCOUNTER 2025-07-05 13:10 | Outpatient (REF) | payer MEDICARE, SELFPAY ==
--- NOTE | ~2025-07-05 | US_ITS ---
EXAMINATION: US ABDOMEN COMPLETE CLINICAL INFORMATION: R79.89. COMPARISON: Correlated to CT dated June 27, 2025 demonstrated multiple cystic lesions throughout the liver and kidneys.. TECHNIQUE: Real-time ultrasound of the abdomen using grayscale technique. FINDINGS: PANCREAS: No peripancreatic fluid collection. ABDOMINAL AORTA: The proximal, mid, and distal segments are normal in caliber. INFERIOR VENA CAVA: Visualized portions are normal. LIVER: Liver measures 12 cm by technologist and approximately [address] Nodular surface. Coarse echotexture. Multiple and multifocal, lobulated anechoic lesions throughout the liver parenchyma, the most conspicuous in an exophytic location of the right hepatic lobe measures 2.4 cm. No flow on color Doppler interrogation. No intrahepatic biliary ductal dilatation. GALLBLADDER: Fluid-filled gallbladder with question fall 0.5 cm mixed slightly hyperechoic and isoechoic abnormality within the gallbladder neck. No pericholecystic fluid collection or gallbladder wall thickening. COMMON BILE DUCT: 3 mm. RIGHT KIDNEY: 11 cm. Normal echotexture. Normal renal cortical thickness. No hydronephrosis. There are multiple anechoic lesions in the parapelvic region without flow on color Doppler interrogation.. LEFT KIDNEY: 12 cm. Normal echotexture. Normal renal cortical thickness. No hydronephrosis. There are multiple anechoic lesions in the parapelvic region without flow on color Doppler interrogation. SPLEEN: 13 by technologist and [address] FREE FLUID: None. US/US abdomen complete IMPRESSION: Multiple cystic lesions, hepatic. 0.5 cm polyp versus cholelithiasis. Multiple parapelvic renal cysts, bilaterally. No ascites. If clinically indicated recommend dynamic enhanced MRI abdomen Electronically signed by: Joseph Lee MD 07/05/2025 02:43 PM EDT
--- OUTSIDE RECORDS SUMMARY | 2025-07-05 13:13 | XMS_ITS | Patient Health Record ---
Author Organization [facility] Address [address] [place] [address] Care Team Providers Care Wedding Decorator Name Role Phone Jose Wilson MD Primary Care Provider Patricio Degroot [phone] Allergies Allergen (clinical drug ingredient) Drug/Non Drug [...] Problem Status W/U Status Risk Notes Problem [id number] Encounter for screening for malignant neoplasm of colon (Z12.11) Active confirmed Problem [id number] Pre-procedural examination (Z01.818) Active confirmed Plan Of Treatment Future Test Test Name Order Date COLONOSCOPY 07/31/2020 Insurance Providers Payer Name Payer Address Payer Phone Subscriber Number Group Number Insured Name Patient Relationship to Insured Coverage Start Date Coverage End Date [facility] [address] [place] [phone] [id number] VELMA MONTILLA Self - patient is the insured Medical (General) History Medical History History ICD Code Mild asthma Hx of prostate cancer Neg colonoscopies in 2002 and 08/2010 HTN Hyperlipdiemia Denies [place],DM,CVA,renal disease Surgical History Surgery Date(Month/Year) 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 Gallardo Arthoscopic surgery left knee Rotator cuff tear repair Bilateral carpal tunnel
--- OUTSIDE RECORDS SUMMARY | 2025-07-05 13:13 | XMS_ITS | Clinical Summary ---
Author Organization [facility] Address [address] [place] [address] Phone Care Team Providers Care Gamewell Operator Name Role Phone Jose Wilson MD Primary Care Provider [phone] Social History Tobacco Use Types Packs/Day Years [...] [employer] H[employer] REPLACEMENT [facility] MEDICARE HMO REPLACEMENT [facility] MEDICARE HMO REPLACEMENT Care Teams Gamewell Operator Relationship Specialty Start Date End Date Jose Wilson MD [address] [place] [address] PCP - General Internal Medicine 07/03/24 Additional Source Comments The information contained in this document represents components of the legal health record. It is not the complete legal health record.[facility]
--- OUTSIDE RECORDS SUMMARY | 2025-07-05 13:13 | XMS_ITS | Encounter Summary ---
Author Organization [facility] Address [address] [place] [address] Care Team Providers Care Filer Helper Name Role Phone Physician, Pcp Unknown Primary Care Provider Gerda vailable Encounter Details Date Type Department Care Team (Late st Contact Info) Description 12/28/2024 Lab Requisition [facility] - Main Lab [address] [facility] [place] [address] Wei Gallardo MD [address] [place] [address] Other microscopic hematuria Social History Tobacco Use [...] AM EST) Final Diagnosis A. Urine, Voided, ([id number]): Negative for high grade urothelial carcinoma. 01/02/2025 8:53 AM EST [facility] Gross Description A. Urine, Voided, ([id number]): Received one ThinPrep slide for cytology primary diagnosis. 01/02/2025 8:53 AM EST [facility] Disclaimer Unless otherwise specified, all tissue is 10% NB formalin fixed and paraffin embedded. Technical pathology services provided by [facility] at [address], [place] [address] (CLIA #[id number]/S tray Blanchard MD, Wrapping Machine Tender) 01/02/2025 8:53 AM EST [facility] Tissue Urine specimen from urethra / Unknown 12/26/2024 12/28/2024 8:29 AM EST us Wei Gallardo MD LAB PATHOLOGY ORDERABLES Fi nal Result [facility] [address] [place] [address], documented in this encounter Visit Diagnoses Diagnosis Other microscopic hematuria documented in this encounter Care Teams Filer Helper Relationship Specialty Start Date End Date Physician, Pcp Unknown PCP - General 01/18/25 documented as of this encounter
== END 2025-07-05 13:11 | disposition home or self-care (01) ==
LOC: HO.US 13:10
PROVIDERS: PCP Internal Medicine; Visit Provider Internal Medicine
DX: R79.89 Other specified abnormal findings of blood chemistry (principal)
CPT/HCPCS: 76700

== ENCOUNTER → 2025-07-05 14:00 | Outpatient (BNV) | payer MEDICARE, SELFPAY | PROVIDERS: PCP Internal Medicine; Visit Provider Radiology Diagnostic Radiology | DX: R79.89 Other specified abnormal findings of blood chemistry (principal) | CPT/HCPCS: 76700 ==

== ENCOUNTER 2025-09-10 06:59 | Outpatient (REF) | payer MEDICARE, SELFPAY ==
--- OUTSIDE RECORDS SUMMARY | 2025-09-10 07:02 | XMS_ITS | Encounter Summary ---
Author Organization [facility] Address [address] [place] [address] Care Team Providers Care Heavy Equipment Mechanic Name Role Phone Physician, Pcp Unknown Primary Care Provider Gerda vailable Encounter Details Date Type Department Care Team (Late st Contact Info) Description 01/18/2025 Lab Requisition [facility] - Main Lab [address] [facility] [place] [address] Wei Gallardo MD [address] [facility] [address] [place] [address] Other microscopic hematuria Social History Tobacco Use [...] Associated Diagnosis Comments AP OUTSIDE CONSULT Routine 01/16/2025 12 :00 AM EST Other microscopic hematuria documented in this encounter Results * Anatomic pathology outside consult (01/16/2025 12:00 AM EST) Final Diagnosis A. Urine, Voided, ([id number]): Negative for high grade urothelial carcinoma. 01/25/2025 12:37 PM EDT [facility] Clinical Information Other microscopic hematuria R31.29 Urine cytology with reflex UroVysion (AUC/SHGUC) 01/25/2025 12:37 PM EDT [facility] Gross Description A. Urine, Voided, ([id number]): Received is one ThinPrep slide for cytology. 01/25/2025 12:37 PM EDT [facility] Disclaimer Unless otherwise specified, all tissue is 10% NB formalin fixed and paraffin embedded. Technical pathology services provided by [facility] at [address] [facility] [address], [place] [address] (CLIA #[id number]/Sa carolynn Blanchard MD, Spray Gun Sizer) 01/25/2025 12:37 PM EDT [facility] Tissue Urine specimen from urethra / Unknown 01/16/2025 01/18/2025 3:47 PM EST us Wei Gallardo MD LAB PATHOLOGY ORDERABLES Fi nal Result [facility] [address] [place] [address], documented in this encounter Visit Diagnoses Diagnosis Other microscopic hematuria documented in this encounter Care Teams Heavy Equipment Mechanic Relationship Specialty Start Date End Date Physician, Pcp Unknown PCP - General 01/18/25 documented as of this encounter
--- OUTSIDE RECORDS SUMMARY | 2025-09-10 07:02 | XMS_ITS | Clinical Summary ---
Author Organization [facility] Address [address] [place] [phone] Phone Care Team Providers Care Pulmonary Function Technician Name Role Phone Jose Wilosn MD Primary Care Provider [phone] Social History Tobacco Use Types Packs/Day Years [...] VACCINE (1 - 1-dose 75+ series) 2023 INFLUENZA VACCINE (#1) 2025 COVID-19 VACCINE ( - 2024-2 6 season) 2025 HEPATITIS A VACCINES Aged Out No long [...] topic Medical Devices Not on [place] [address] [place] [address] MEDICARE HMO REPLACEMENT Care Teams Pulmonary Function Technician Relationship Specialty Start Date End Date Jose Wilson MD [address] [place] [id number] PCP - General Internal Medicine 07/03/24 Additional Source Comments The information contained in this document represents components of the legal health record. It is not the complete legal health record.[facility]
--- OUTSIDE RECORDS SUMMARY | 2025-09-10 07:02 | XMS_ITS | Patient Health Record ---
Author Organization [facility] Address [address] [place] [address] Care Team Providers Care Pmo Manager Name Role Phone Jose Wilson MD Primary Care Provider Patricio Degroot [phone] Allergies Allergen (clinical drug ingredient) Drug/Non Drug [...] TABLET ONCE A DAY ORALLY 90 DAYS Oral; Duration: 90 Active Rosuvastatin Calcium 5 MG TAKE 1 TABLET BY MOUTH EVERY OTHER DAY Oral; Duration: 90 Active Aspirin Adult Low Dose 81 MG 1 tablet Orally Once a day; Duration: 30 day(s) Active Aleve 220 MG 1 [...] Problem Status W/U Status Risk Notes Problem Screening for malignant neoplasm of colon (843701071) Encounter for screening for malignant neoplasm of colon (Z12.11) Active confirmed Problem Pre-procedure evaluation check (957565542) Pre-procedural examination (Z01.818) Active confirmed Encounters Encounter Location Date Provider Diagnosis [facility] [address] [place] [address] 07/19/2025 Patricio Rivers Plan Of Treatment Future Test Test Name Order Date COLONOSCOPY 07/31/2020 Next Appt Details Provider Name:Patricio Zhao Rivers , 11/06/2025 10:40:00 AM, [address], [address], [place], [address], Insurance Providers Payer Name Payer Address Payer Phone Subscriber Number Group Number Insured Name Patient Relationship to Insured Coverage Start Date Coverage End Date [facility] [address] [place] [phone] [id number] VELMA MONTILLA Self - patient is the [...]
--- OUTSIDE RECORDS SUMMARY | 2025-09-10 07:02 | XMS_ITS | Clinical Summary ---
Author Organization [address] [facility] Address [address] [place] [address] Phone Care Team Providers Care Drafter Electromechanical Name Role Phone Physician, Pcp Unknown Primary Care Provider Gerda vailable Social History Tobacco Use Types Packs/Day Years [...] Vaccines (1 of 2) 1998 RSV Immunization Adult Patie nts (1 - 1-dose 75+ series) 2023 Depression Screening 11/14/2024 Cholesterol Screening (Lipid Panel) 12/28/2024 Falls Risk Assessment 12/28/2024 Hepatitis C Screening 12/28/2024 Medicare Annual Wellness Visit 12/28/2024 Social Influencers of Health Screening 12/28/2024 COVID-19 Vaccine (1 - 2023-2 5 season) 2025 Influenza Vaccine (#1) 2025 HIB Vaccines Aged Out No longer eligi [...] age to complete this topic Meningococcal B Vaccine Aged Out No l onger eligible based on patient's age to complete this topic RSV Immunization Patients Un sondra 20 months Aged Out No longer eligible b ased on patient's age to complete this topic Varicella Vaccines Aged Out No longer eligible based on patient's age to complete this topic Insurance [employer] Care Teams Drafter Electromechanical Relationship Specialty Start Date End Date Physician, Pcp Unknown PCP - General 01/18/25
--- OUTSIDE RECORDS SUMMARY | 2025-09-10 07:02 | XMS_ITS | Encounter Summary ---
Author Organization [facility] Address [address] [place] [address] Care Team Providers Care Market Development Analyst Name Role Phone Physician, Pcp Unknown Primary Care Provider Gerda vailable Encounter Details Date Type Department Care Team (Late st Contact Info) Description 12/28/2024 Lab Requisition [facility] - Main Lab [address] [facility] [place] [address] Wei Gallardo MD [address] [place] [address] Other microscopic hematuria Social History Tobacco Use [...] AM EST) Final Diagnosis A. Urine, Voided, ([id number]): Negative for high grade urothelial carcinoma. 01/02/2025 8:53 AM EST [facility] Gross Description A. Urine, Voided, ([id number]): Received one ThinPrep slide for cytology primary diagnosis. 01/02/2025 8:53 AM EST [facility] Disclaimer Unless otherwise specified, all tissue is 10% NB formalin fixed and paraffin embedded. Technical pathology services provided by [facility] at [address], [place] [address] (CLIA #[id number]/S tray Blanchard MD, Top Lifter) 01/02/2025 8:53 AM EST [facility] Tissue Urine specimen from urethra / Unknown 12/26/2024 12/28/2024 8:29 AM EST us Wei Gallardo MD LAB PATHOLOGY ORDERABLES Fi nal Result [facility] [address] [place] [address], documented in this encounter Visit Diagnoses Diagnosis Other microscopic hematuria documented in this encounter Care Teams Market Development Analyst Relationship Specialty Start Date End Date Physician, Pcp Unknown PCP - General 01/18/25 documented as of this encounter
--- OUTSIDE RECORDS SUMMARY | 2025-09-10 07:02 | XMS_ITS | Encounter Summary ---
Author Organization [facility] Address [address] [place] [address] Care Team Providers Care Check Writer Salesperson Name Role Phone Physician, Pcp Unknown Primary Care Provider Gerda vailable Encounter Details Date Type Department Care Team (Late st Contact Info) Description 12/28/2024 Lab Requisition [facility] - Main Lab [address] [facility] [place] [address] Wei Gallardo MD [address] [place] [address] Other microscopic hematuria Social History Tobacco Use [...] hematuria documented in this encounter Care Teams Check Writer Salesperson Relationship Specialty Start Date End Date Physician, Pcp Unknown PCP - General 01/18/25 documented as of this encounter
[2025-09-10 08:23] LABS: Alanine Aminotransferase 20 U/L (0-40); Albumin Level 4.1 g/dL (3.5-5.0); Alkaline Phosphatase 93 U/L (39-117); Anion Gap 10 (12-20); Aspartate Amino Transferase 22 U/L (5-37); Blood Urea Nitrogen 21 mg/dL (9-16); Calcium 9.6 mg/dL (8.4-10.2); Carbon Dioxide 30 mmol/L (22-29); Chloride 109 mmol/L (96-108); Estimated Glomerular Filt Rate > 60; Potassium 4.8 mmol/L (3.3-5.1); Sodium 144 mmol/L (135-145); Total Protein 6.3 g/dL (6.5-8.0)
[2025-09-10 08:31] LABS: Free T4 (Free Thyroxine) 0.92 ng/dL (0.71-1.85); Thyroid Stimulating Hormone 3.47 uIU/mL (0.32-4.0)
== END 2025-09-10 07:00 | disposition home or self-care (01) ==
LOC: HO.LAB 06:59
PROVIDERS: PCP Internal Medicine; Visit Provider Internal Medicine
DX: Z13.29 Encounter for screening for other suspected endocrine disorder (principal); R73.02 Impaired glucose tolerance (oral)
CPT/HCPCS: 36415; 80053; 83036; 84439; 84443